=== PATIENT | female | born 1980 | race Hispanic/Latino ===

== ENCOUNTER 2020-02-05 14:15 | Emergency (ER) | payer BC ==
[2020-02-05 15:32] LABS: Urine Blood TRACE (NEG); Urine Glucose NEGATIVE (NEG); Urine Protein NEGATIVE (NEG); Urine pH 5.5 (5.0-7.0)
[2020-02-05 15:53] LABS: Urine Bacteria 20-50 /HPF (<20); Urine Culture Reflex Order NOT NEEDED; Urine RBC <5 /HPF (NONE SEEN)
[2020-02-05 15:57] LABS: Absolute Lymphocytes (CBC) 1.9 K/uL (0.7-4.9); Basophils % 1.1 % (0-1.3); Lymphocytes % 25.7 % (15.3-44.8); MPV 10.5 fL (7.6-11.3); RBC Red Blood Cell Count 3.92 M/uL (3.86-4.86)
[2020-02-05 16:04] LABS: ALT/SGPT 45 U/L (12-78); AST/SGOT 34 U/L (15-37); Albumin 3.4 g/dL (3.4-5.0); Alkaline Phosphatase 56 U/L (45-117); BUN Blood Urea Nitrogen 11 mg/dL (7-18); Bicarbonate 28 mmol/L (21-32); Bilirubin Direct < 0.1 mg/dL (0-0.2); Bilirubin Total 0.3 mg/dL (0.2-1.0); Glucose Level 105 mg/dL (74-106); Lipase 80 U/L (73-393); Potassium 3.9 mmol/L (3.5-5.1); Protein, Total 7.2 g/dL (6.4-8.2); Sodium Level 138 mmol/L (136-145)
[2020-02-05] MEDS ORDERED: NA CHLORIDE 0.9% 1,000 ML ONE (16:09)
--- NOTE | 2020-02-05 16:12 | RAD REPORT ---
EXAM DESCRIPTION: US - Abdomen Exam Limited - 02/05/2020 3:59 pm CLINICAL HISTORY: ABD PAIN COMPARISON: Abdomen Exam Complete dated 09/04/2016 FINDINGS: The gallbladder demonstrates no gallstones. No pericholecystic fluid or gallbladder wall t hickening. The common bile duct is normal measuring 3 mm. The liver demonstrates no findings of intrahepatic biliary dilatation. IMPRESSION: Unremarkable examination.
--- NOTE | 2020-02-05 16:35 | RAD REPORT ---
EXAM DESCRIPTION: RAD - Chest Single View - 02/05/2020 4:28 pm CLINICAL HISTORY: ABDOMINAL DISTENTION Chest pain. COMPARISON: CHEST PA AND LAT 2 VIEW dated 12/12/2011 FINDINGS: Portable technique limits examination quality. The lungs are grossly clear. The heart is normal in size. No displaced fractures. IMPRESSION: No acute intrathoracic process suspected.
--- NOTE | 2020-02-05 16:55 | RAD REPORT ---
EXAM DESCRIPTION: CT - Chest For Pe Angio - 02/05/2020 4:29 pm CLINICAL HISTORY: Chest pain. elevated ddimer COMPARISON: No comparisons TECHNIQUE: CT angiogram of the pulmonary arteries was performed with MIP. All CT scans are performed using dose optimization technique as appropriate and may include automated exposure control or mA/KV adjustment according to patient size. FINDINGS: No evidence of pulmonary thromboembolism. No acute aortic finding demonstrated. The lungs are clear. No significant pericardial or pleural fluid. No concerning bony finding. IMPRESSION: No evidence of pulmonary thromboembolism. No acute lung findings.
--- NOTE | 2020-02-05 17:15 | RAD REPORT ---
EXAM DESCRIPTION: US - Extrem Venous W Compress Nando - 02/05/2020 5:06 pm CLINICAL HISTORY: PAIN Bilateral leg edema and swelling. COMPARISON: No comparisons TECHNIQUE: Real-time sonographic interrogation of the left and right lower extremity deep venous sys tems was performed. FINDINGS: Normal compressibility, flow augmentation, phasic flow and spontaneous flow is identified in both the left and right lower extremity deep venous systems. IMPRESSION: No sonographic evidence of left or right lower extremity deep venous thrombosis.
--- NOTE | 2020-02-05 17:19 | ER ---
Nurse's Notes [facility] Name: Roseline Ram Age: 39 yrs Sex: Female : 1980 Arrival Date: 02/05/2020 Time: 14:20 Bed 27 Private MD: Diagnosis: Other chest pain-wall;Abdominal tenderness;Nausea Presentation: 02/04 14:37 Chief complaint: Patient states: RUQ pain that began 1 week ago, pt report got worse x aa5 2 days ago. Reports nausea/vomiting/diarrhea and reports pain is aggravated by eating. Coronavirus screen: The patient has NOT traveled to a country currently being monitored by the [facility] within the last 14 days. The patient has NOT had contact with any known and/or suspected case of coronavirus. Ebola Screen: Patient negative for fever greater than or equal to 101.5 degrees Fahrenheit, and additional compatible Ebola Virus Disease symptoms. Initial Sepsis Screen: Does the patient meet any 2 criteria? No. Patient's initial sepsis screen is negative. Does the patient have a suspected source of infection? No. Patient's initial sepsis screen is negative. Risk Assessment: Do you want to hurt yourself or someone else? Patient reports no desire to harm self or others. 14:37 Method Of Arrival: Ambulatory aa5 14:37 Acuity: RAVEN 3 aa5 15:14 Onset of symptoms was February 02, 2020. ls4 Triage Assessment: 15:13 General: Appears in no apparent distress. General: Appears in no apparent distress. ls4 uncomfortable, Behavior is calm, cooperative. Pain: Complains of pain in right upper quadrant and back and right mid back Pain currently is 7 out of 10 on a pain scale. GI: see triage. GI: Reports upper abdominal pain. 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 - Social history:: Smoking status: Patient denies any tobacco usage or history of. - Family history:: not pertinent. Screenin:48 Abuse screen: Denies threats or abuse. Denies injuries from another. Nutritional ls4 screening: No deficits noted. Tuberculosis screening: No symptoms or risk factors identified. Fall Risk None identified. Assessment: 14:57 Pain: Pain radiates to right mid back Pain began gradually, 2-3 days ago. ls4 Cardiovascular: Denies chest pain, diaphoresis, fatigue, lightheadedness, palpitations, shortness of breath, syncope. GI: Abdomen is round non-distended, Bowel sounds present X 4 quads. Abd is soft Abdomen is tender to palpation in right upper quadrant Reports nausea, Pain is 7 out of 10 on a pain scale. : No signs and/or symptoms were reported regarding the genitourinary system. 17:00 Also complains of. Reassessment: No changes from previously documented assessment. ls4 Patient and/or family updated on plan of care and expected duration. Pain level reassessed. Patient is alert, oriented x 3, equal unlabored respirations, skin warm/dry/pink. 17:55 Reassessment: No changes from previously documented assessment. Patient and/or family ls4 updated on plan of care and expected duration. Pain level reassessed. Patient is alert, oriented x 3, equal unlabored respirations, skin warm/dry/pink. Vital Signs: 14:37 BP 144 / 94; Pulse 86; Resp 16 S; Temp 98.7(O); Pulse Ox 99% on R/A; Weight 104.33 kg aa5 (R); Height 5 ft. 3 in. (160.02 cm) (R); Pain 7/10; 15:00 BP 136 / 86; Pulse 68; Resp 16; Pulse Ox 100% on R/A; mh5 16:51 BP 119 / 66; Pulse 66; Resp 16; Temp 98.7(O); Pulse Ox 100% on R/A; mh5 17:54 BP 122 / 58; Pulse 66; Resp 16; Temp 98.4; Pulse Ox 99% on R/A; Pain 5/10; ls4 14:37 Body Mass Index 40.74 (104.33 kg, 160.02 cm) aa5 ED Course: 14:20 Patient arrived in ED. fj1 14:39 Triage completed. aa5 14:39 Arm band placed on. aa5 14:43 Benito Gutierrez MD is Attending Physician. [facility] 14:45 Micheline Whitaker, RN is Primary Nurse. ls4 15:12 No provider procedures requiring assistance completed. Initial lab(s) drawn, by ny, ls4 sent to lab. Urine collected: clean catch specimen, cloudy. Inserted saline lock: 14 gauge 20 gauge in right antecubital area, using aseptic technique. Blood collected. Patient maintains SpO2 saturation greater than 95% on room air. 15:14 Patient has correct armband on for positive identification. Bed in low position. Call ls4 light in reach. Side rails up X 1. monitor worker on. Pulse ox on. NIBP on. Diet: Patient is NPO. 15:25 Urine Dipstick--Ancillary (enter results) Sent. ls4 15:26 Urine --Ancillary (enter results) Sent. ls4 15:41 Urine Microscopic Only Sent. vc 15:41 Urine Culture Sent. vc 15:46 Basic Metabolic Panel Sent. ls4 15:46 CBC with Diff Sent. ls4 15:46 Creatinine for Radiology Sent. ls4 15:46 Hepatic Function Sent. ls4 15:46 Lipase Sent. ls4 15:46 D-Dimer Sent. ls4 16:11 US Extremity Venous W Compression Nando Sent. ls4 17:38 IV discontinued, intact, bleeding controlled, No redness/swelling at site. Pressure ls4 dressing applied. Administered Medications: 16:13 Drug: NS 0.9% 1000 ml Route: IV; Rate: 1 bolus; Site: right antecubital; ls4 Outcome: 17:19 Discharge ordered by . [facility] 17:38 Discharged to home ambulatory. ls4 17:38 Condition: stable 17:38 Discharge instructions given to patient, Instructed on discharge instructions, follow up and referral plans. medication usage, Demonstrated understanding of instructions, follow-up care, medications, Prescriptions given X 4. 17:56 Patient left the ED. ls4 Signatures: Benito Gutierrez MD MD cha Calderon, Audri, RN RN 5 Kandi Mena 5 Micheline Whitaker, SELENA RN ls4 Julieth Patiño RN RN vc James, Frank fj1
--- NOTE | 2020-02-05 17:19 | EDPHYS ---
Physician Documentation [facility] Name: Roseline Ram Age: 39 yrs Sex: Female : 1980 Arrival Date: 02/05/2020 Time: 14:20 Bed 27 Private MD: LY Physician Benito Gutierrez HPI: 02/04 15:35 This 39 yrs old Female presents to ER via Ambulatory with complaints of lana Nausea, Abdominal Pain. 15:35 The patient presents to the emergency department with nausea, vomiting, abdominal pain, lana of the right upper quadrant. Onset: The symptoms/episode began/occurred today. Possible causes: unknown. The symptoms are aggravated by food , The symptoms are alleviated by nothing. Associated signs and symptoms: The patient has no apparent associated signs or symptoms. Severity of symptoms: At their worst the symptoms were mild moderate in the emergency department the symptoms are unchanged. The patient has not experienced similar symptoms in the past. 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 - Social history:: Smoking status: Patient denies any tobacco usage or history of. - Family history:: not pertinent. ROS: 15:35 Constitutional: Negative for fever, chills, and weight loss, Eyes: Negative for injury, lana pain, redness, and discharge, ENT: Negative for injury, pain, and discharge, Neck: Negative for injury, pain, and swelling, Cardiovascular: Negative for chest pain, palpitations, and edema, Respiratory: Negative for shortness of breath, cough, wheezing, and pleuritic chest pain, Back: Negative for injury and pain, : Negative for injury, bleeding, discharge, and swelling, MS/Extremity: Negative for injury and deformity, Skin: Negative for injury, rash, and discoloration, Neuro: Negative for headache, weakness, numbness, tingling, and seizure, Psych: Negative for depression, anxiety, suicide ideation, homicidal ideation, and hallucinations, Allergy/Immunology: Negative for hives, rash, and allergies, Endocrine: Negative for neck swelling, polydipsia, polyuria, polyphagia, and marked weight changes, Hematologic/Lymphatic: Negative for swollen nodes, abnormal bleeding, and unusual bruising. 15:35 Abdomen/GI: Positive for abdominal pain, of the right upper quadrant. Exam: 15:35 Constitutional: This is a well developed, well nourished patient who is awake, alert, lana and in no acute distress. Head/Face: Normocephalic, atraumatic. Eyes: Pupils equal round and reactive to light, extra-ocular motions intact. Lids and lashes normal. Conjunctiva and sclera are non-icteric and not injected. Cornea within normal limits. Periorbital areas with no swelling, redness, or edema. ENT: Nares patent. No nasal discharge, no septal abnormalities noted. Tympanic membranes are normal and external auditory canals are clear. Oropharynx with no redness, swelling, or masses, exudates, or evidence of obstruction, uvula midline. Mucous membranes moist. Neck: Trachea midline, no thyromegaly or masses palpated, and no cervical lymphadenopathy. Supple, full range of motion without nuchal rigidity, or vertebral point tenderness. No Meningismus. Chest/axilla: Normal chest wall appearance and motion. Nontender with no deformity. No lesions are appreciated. Cardiovascular: Regular rate and rhythm with a normal S1 and S2. No gallops, murmurs, or rubs. Normal PMI, no JVD. No pulse deficits. Respiratory: Lungs have equal breath sounds bilaterally, clear to auscultation and percussion. No rales, rhonchi or wheezes noted. No increased work of breathing, no retractions or nasal flaring. Back: No spinal tenderness. No costovertebral tenderness. Full range of motion. Skin: Warm, dry with normal turgor. Normal color with no rashes, no lesions, and no evidence of cellulitis. MS/ Extremity: Pulses equal, no cyanosis. Neurovascular intact. Full, normal range of motion. Neuro: Awake and alert, GCS 15, oriented to person, place, time, and situation. Cranial nerves II-XII grossly intact. Motor strength 5/5 in all extremities. Sensory grossly intact. Cerebellar exam normal. Normal gait. Psych: Awake, alert, with orientation to person, place and time. Behavior, mood, and affect are within normal limits. 15:35 Abdomen/GI: Inspection: distension, Bowel sounds: active, in the right upper quadrant, Palpation: mild abdominal tenderness, in the right upper quadrant, Liver: no appreciated palpable abnormalities, Hernia: not appreciated. Vital Signs: 14:37 BP 144 / 94; Pulse 86; Resp 16 S; Temp 98.7(O); Pulse Ox 99% on R/A; Weight 104.33 kg aa5 (R); Height 5 ft. 3 in. (160.02 cm) (R); Pain 7/10; 15:00 BP 136 / 86; Pulse 68; Resp 16; Pulse Ox 100% on R/A; mh5 16:51 BP 119 / 66; Pulse 66; Resp 16; Temp 98.7(O); Pulse Ox 100% on R/A; mh5 17:54 BP 122 / 58; Pulse 66; Resp 16; Temp 98.4; Pulse Ox 99% on R/A; Pain 5/10; ls4 14:37 Body Mass Index 40.74 (104.33 kg, 160.02 cm) aa5 MDM: 14:44 Patient medically screened. [facility] 15:39 Data reviewed: vital signs, nurses notes, lab test result(s), EKG, radiologic studies, [facility] plain films, ultrasound. 02/04 14:59 Order name: Urine Dipstick--Ancillary (enter results) 02/04 14:59 Order name: Urine --Ancillary (enter results) 02/04 15:13 Order name: Urine Microscopic Only ls4 02/04 15:29 Order name: Basic Metabolic Panel [facility] 02/04 15:29 Order name: CBC with Diff [facility] 02/04 15:29 Order name: Creatinine for Radiology [facility] 02/04 15:29 Order name: Hepatic Function [facility] 02/04 15:29 Order name: Lipase [facility] 02/04 15:29 Order name: D-Dimer [facility] 02/04 15:33 Order name: Urine --Ancillary; Complete Time: 15:35 EDMS 02/04 15:33 Order name: Urine Dipstick-Ancillary; Complete Time: 15:35 EDIA 02/04 15:35 Order name: Urine Culture [facility] 02/04 15:54 Order name: Urine Microscopic Only; Complete Time: 15:58 EDIA 02/04 16:01 Order name: Creatinine (Radiology Only); Complete Time: 16:06 EDIA 02/04 14:48 Order name: Urine Test (obtain specimen); Complete Time: 15:25 ls4 02/04 15:29 Order name: Chest Single View XRAY [facility] 02/04 15:29 Order name: US Abdomen Limited [facility] 02/04 16:05 Order name: Basic Metabolic Panel; Complete Time: 16:06 EDIA 02/04 16:05 Order name: Liver (Hepatic) Function; Complete Time: 16:06 EDIA 02/04 16:05 Order name: Lipase; Complete Time: 16:06 EDMS 02/04 16:05 Order name: D-Dimer; Complete Time: 16:06 EDIA 02/04 16:05 Order name: CT Chest For PE Angio iw 02/04 16:06 Order name: US Extremity Venous W Compression Nando [facility] 02/04 16:06 Order name: CBC with Automated Diff; Complete Time: 16:07 EDIA 02/04 16:17 Order name: US; Complete Time: 16:47 EDIA 02/04 16:44 Order name: RAD; Complete Time: 16:47 EDIA 02/04 17:01 Order name: CT; Complete Time: 17:14 EDIA 02/04 17:19 Order name: US; Complete Time: 17:20 EDIA 02/04 15:26 Order name: Urine Dipstick-Ancillary (obtain specimen); Complete Time: 15:26 [facility] 02/04 15:29 Order name: IV Saline Lock; Complete Time: 15:41 [facility] 02/04 15:29 Order name: Labs collected and sent; Complete Time: 15:41 [facility] Administered Medications: 16:13 Drug: NS 0.9% 1000 ml Route: IV; Rate: 1 bolus; Site: right antecubital; ls4 Disposition: 02/05/20 17:19 Discharged to Home. Impression: Other chest pain - wall, Abdominal tenderness, Nausea. - Condition is Stable. - Discharge Instructions: Abdominal Pain, Adult, Nonspecific Chest Pain, Abdominal Pain, Adult, [id number], Nonspecific Chest Pain, [id number]. - Prescriptions for Ibuprofen 600 mg Oral Tablet - take 1 tablet by ORAL route every 8 hours As needed take with food; 21 tablet. Pepcid 20 mg Oral Tablet - take 1 tablet by ORAL route every 12 hours for 10 days; 20 tablet. Zofran 4 mg Oral Tablet - take 1 tablet by ORAL route every 12 hours As needed; 20 tablet. Cyclobenzaprine 5 mg Oral Tablet - take 1 tablet by ORAL route 3 times per day As needed; 15 tablet. - Medication Reconciliation Form, Thank You Letter, Antibiotic Education, Prescription Opioid Use form. - Follow up: Private Physician; When: 2 - 3 days; Reason: Recheck today's complaints, Continuance of care, Re-evaluation by your physician. - Problem is new. - Symptoms have improved. Signatures: Dispatcher [employer] EDMS Benito Gutierrez MD MD cha Calderon, Audri, RN RN aa5 Micheline Whitaker RN RN ls4 Corrections: (The following items were deleted from the chart) 15:25 14:48 Urine Dipstick-Ancillary ordered. ls4 ls4 17:21 17:19 02/05/2020 17:19 Discharged to Home. Impression: Other chest pain - wall; lana Abdominal tenderness. Condition is Stable. Forms are Medication Reconciliation Form, Thank You Letter, Antibiotic Education, Prescription Opioid Use. Follow up: Private Physician; When: 2 - 3 days; Reason: Recheck today's complaints, Continuance of care, Re-evaluation by your physician. Problem is new. Symptoms have improved. lana 17:56 17:21 02/05/2020 17:19 Discharged to Home. Impression: Other chest pain - wall; ls4 Abdominal tenderness; Nausea. Condition is Stable. Discharge Instructions: Abdominal Pain, Adult, Nonspecific Chest Pain, Abdominal Pain, Adult, [id number], Nonspecific Chest Pain, [id number]. Prescriptions for Ibuprofen 600 mg Oral Tablet - take 1 tablet by ORAL route every 8 hours As needed take with food; 21 tablet, Pepcid 20 mg Oral Tablet - take 1 tablet by ORAL route every 12 hours for 10 days; 20 tablet, Zofran 4 mg Oral Tablet - take 1 tablet by ORAL route every 12 hours As needed; 20 tablet, Cyclobenzaprine 5 mg Oral Tablet - take 1 tablet by ORAL route 3 times per day As needed; 15 tablet. and Forms are Medication Reconciliation Form, Thank You Letter, Antibiotic Education, Prescription Opioid Use. Follow up: Private Physician; When: 2 - 3 days; Reason: Recheck today's complaints, Continuance of care, Re-evaluation by your physician. Problem is new. Symptoms have improved. lana
[2020-02-05 18:40] VITALS: BP 122/58; TEMP 98.4; O2SAT 99
== END 2020-02-05 17:56 | disposition home or self-care (01) ==
LOC: ER 14:15
DX: R07.89 Other chest pain (principal); R10.819 Abdominal tenderness, unspecified site; Z88.1 Allergy status to other antibiotic agents; Z88.5 Allergy status to narcotic agent; Z88.8 Allergy status to other drugs, medicaments and biological substances
CPT/HCPCS: 87088; 85025; 87086; 80048; 36415; 81025; 85379; 80076; 83690; 71275; 71045; 93970; 76705; 99285; Q9967; J7030; 81003; 81015

== ENCOUNTER 2022-05-09 05:34 | Emergency (ER) | payer BC, OTHER ==
--- OUTSIDE RECORDS SUMMARY | 2022-05-09 05:37 | XMS REPORT | Continuity of Care Document ---
:1980 Author Organization [facility] t Address [address] [place] [address] [address] [place] [address] Care Team Providers Name Role Phone Valentín SILVERMAN Attending Clinician Unavailable Nurse, Women's Health Attending Clinician Unavailable Valentín Silverman MD Attending Clinician Doctor Unassigned, Name Attending Clinician Unavailable Omero Zaidi DO Attending Clinician Payers Payer Name Policy Type Policy Number Effective Date Expiration Date S marysol [employer] CHOICE POS [id number] 2020 00:00:00 [place] [employer] [place] - [id number] 2018 00:00:00 OUT OF STATE Problems Condition Condition Condition Status Onset Resolution Last Treating Co mments Source Name Details Category Date Date Treatment Clinician Date Morbid Morbid Disease Active Univers obesity obesity 6-10 [place] with [place] index 00 Me dical of of Branch 40.0-49.9 40.0-49.9 Cervical Cervical Disease Active Unive rs high risk high risk 5-15 ity of human human 00:00: [place] papillomav papillomav 00 Me dical irus (HPV) irus (HPV) Br anch DNA test DNA test positive positive Obesity Obesity Disease Active Univers (BMI (BMI 5-03 ity of 30-39.9) 30-39.9) 00:00: [place] 00 Medical Branch Menorrhagi Menorrhagi Disease Active Overview : Univers a with a with 5-03 04/03/19 - ity of regular regular 00:00: Tranexami [place] cycle cycle 00 c Acid Medical started. Branch Dysmenorrh Dysmenorrh Disease Active Overview : Univers ea ea 5-03 3/19 - ity of 00:00: Tranexami [place] 00 c Acid Medical started. Branch Acquired Acquired Disease Active Unive rs hypothyroi hypothyroi 04-03 it y of dism dism 00:00: [place] 00 Medical Branch Chlamydia Chlamydia Disease Active Overview: Univers trachomati trachomati 02-1702/12/19 - ity of s s 00:00: s/p [place] infection infection 00 Azithromy M edical of lower of lower ayse Branch genitourin genitourin brigida sites brigida sites Acute Acute Disease Active Overview: Univer s pelvic pelvic 02-1702/12/19 - ity of inflammato inflammato 00:00[place] ry disease ry disease 00 Rocephin, Medical (PID) (PID) Azithromy Branch ayse and Doxycylin e Trichomona Trichomona Disease Active Overview : Univers s s 02-1702/12/19 - ity of vaginitis vaginitis 00:00[place] 00 Flagyl [facility] History of History of Disease Active Overview : Univers abnormal abnormal 02-1704/04/19 - ity of cervical cervical 00:00: pap smear [place] as Papanicola Papanicola 00 normal. 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 Allergies, Adverse Reactions, Alerts Allergy Allergy Status Severity Reaction(s) Onset Inactive Treating Comm ents Source Name Type Date Date Clinician CIPROFLO DRUG Active Other-Cmnt Univ ers XACIN INGREDI 04-26 ity of 00:00: [place] 00 Medical Branch CARISOPR DRUG Active Rash Univers ODOL INGREDI 04-26 ity of 00:00: [place] 00 Medical Branch TRAMADOL DRUG Active Rash Univers HCL INGREDI 04-26 ity of 00:00: [place] 00 Medical Branch Ciproflo Propensi Active Other - See Joint U nivers xacin ty to comments 04-26 pain ity of adverse 00:00: [place] reaction 00 Medical s Branch Carisopr Propensi Active Rash Univer s odol ty to 04-26 ity of adverse 00:00: [place] reaction 00 Medical s Branch Tramadol Propensi Active Rash 2016-0 Univer s Hcl ty to 5-26 ity of adverse 00:00: [place] reaction 00 Medical s Branch Social History Social Habit Start Date Stop Date Quantity Comments Source Exposure to Not sure University SARS-CoV-2 [facility] (event) Branch Tobacco use and 2021-03-14 2021-03-14 Never used Universit y of exposure 00:00:00 00:00:00 [facility] Alcohol intake 2021-03-14 2021-03-14 Current University of 00:00:00 00:00:00 non-drinker of [facility] alcohol Branch (finding) Sex Ass[birth year] At [birth year] Universit y of 00:00:00 00:00:00 [facility] Smoking Status Start Date Stop Date Source Never smoker [facility] Medications Ordered Filled Start Stop Current Ordering Indication Dosage Frequency Signature Comments Components Source Medication Medication Date Date Medication? Clinician (SIG) Name Name cefTRIAXone 2020- No [id number] 250mg Univers (ROCEPHIN) 02-14 ity of injection 17:45: 16:36 [place] 250 mg 00 :00 [facility] cefTRIAXone 2020- No [id number] 250mg 250 mg, Univers (ROCEPHIN) 02-14 Intramuscu it y of injection 17:45: 16:36 [place]CE, [place] 250 mg 00 :00 1 dose, [facility] 02/14/21 at 1245, Routine
Reason for Anti-Infec tive: Documented Infection< br>Documen chris Infection Site: Blood
D uration of Therapy: Other (see Comments) cefTRIAXone 2020- No [id number] 250mg Univers (ROCEPHIN) 02-14 ity of injection 17:45: 16:36 [place] 250 mg 00 :00 [facility] cefTRIAXone 2020- No [id number] 250mg 250 mg, Univers (ROCEPHIN) 02-14 Intramuscu it y of injection 17:45: 16:36 [place], ONCE, [place] 250 mg 00 :00 1 dose, [facility] 02/14/21 at 1245, Routine
Reason for Anti-Infec tive: Documented Infection< br>Documen chris Infection Site: Blood
D uration of Therapy: Other (see Comments) vitamin 0 Yes 1000ug Take 1,000 Un abdoul B-12 3-16 mcg by ity of (VITAMIN 16:04: mouth [place] B-12) 1,000 11 daily. Medica l mcg tablet Branch vitamin Yes 1000ug Take 1,000 Un abdoul B-12 3-16 mcg by ity of (VITAMIN 16:04: mouth [place] B-12) 1,000 11 daily. Medica l mcg tablet Branch vitamin Yes 1000ug Take 1,000 Un abdoul B-12 3-16 mcg by ity of (VITAMIN 16:04: mouth [place] B-12) 1,000 11 daily. Medica l mcg tablet Branch vitamin Yes 1000ug Take 1,000 Un abdoul B-12 3-16 mcg by ity of (VITAMIN 16:04: mouth [place] B-12) 1,000 11 daily. Medica l mcg tablet Branch vitamin Yes 1000ug Take 1,000 Un abdoul B-12 3-16 mcg by ity of (VITAMIN 16:04: mouth [place] B-12) 1,000 11 daily. Medica l mcg tablet Branch vitamin Yes 1000ug Take 1,000 Un abdoul B-12 3-16 mcg by ity of (VITAMIN 16:04: mouth [place] B-12) 1,000 11 daily. Medica l mcg tablet Branch vitamin Yes 1000ug Take 1,000 Un abdoul B-12 3-16 mcg by ity of (VITAMIN 16:04: mouth [place] B-12) 1,000 11 daily. Medica l mcg tablet Branch vitamin Yes 1000ug Take 1,000 Un abdoul B-12 3-16 mcg by ity of (VITAMIN 16:04: mouth [place] B-12) 1,000 11 daily. Medica l mcg tablet Branch doxycycline Yes [id number] 100mg Take 1 Univers hyclate 100 3-16 tablet by ity of mg tablet 00:00: mouth 2 [place] 00 (two) Medical times Branch daily. metroNIDAZO Yes [id number] 500mg Take 1 Univers LE 500 mg 3-16 tablet by ity o f tablet 00:00: mouth [place] 00 every 12 Medical (twelve) Branch hours. doxycycline 2020-0 Yes [id number] 100mg Take 1 Univers hyclate 100 3-16 tablet by ity of mg tablet 00:00: mouth 2 00 (two) Medical times Branch daily. metroNIDAZO 2020-0 Yes [id number] 500mg Take 1 Univers LE 500 mg 3-16 tablet by ity o f tablet 00:00: mouth [place] 00 every 12 Medical (twelve) Branch hours. doxycycline 2020-0 Yes [id number] 100mg Take 1 Univers hyclate 100 3-16 tablet by ity of mg tablet 00:00: mouth 2 [place] 00 (two) Medical times Branch daily. metroNIDAZO 2020-0 Yes [id number] 500mg Take 1 Univers LE 500 mg 3-16 tablet by ity o f tablet 00:00: mouth [place] 00 every 12 Medical (twelve) Branch hours. doxycycline 2020-0 Yes [id number] 100mg Take 1 Univers hyclate 100 3-16 tablet by ity of mg tablet 00:00: mouth 2 00 (two) Medical times Branch daily. metroNIDAZO 2020-0 Yes [id number] 500mg Take 1 Univers LE 500 mg 3-16 tablet by ity o f tablet 00:00: mouth [place] 00 every 12 Medical (twelve) Branch hours. doxycycline 2020-0 Yes [id number] 100mg Take 1 Univers hyclate 100 3-16 tablet by ity of mg tablet 00:00: mouth 2 00 (two) Medical times Branch daily. metroNIDAZO 2020-0 Yes [id number] 500mg Take 1 Univers LE 500 mg 3-16 tablet by ity o f tablet 00:00: mouth [place] 00 every 12 Medical (twelve) Branch hours. doxycycline 2020-0 Yes [id number] 100mg Take 1 Univers hyclate 100 3-16 tablet by ity of mg tablet 00:00: mouth 2 [place] 00 (two) Medical times Branch daily. metroNIDAZO 2021-0 Yes [id number] 500mg Take 1 Univers LE 500 mg 3-16 tablet by ity o f tablet 00:00: mouth [place] 00 every 12 Medical (twelve) Branch hours. doxycycline 1-0 Yes [id number] 100mg Take 1 Univers hyclate 100 3-16 tablet by ity of mg tablet 00:00: mouth 2 [place] 00 (two) Medical times Branch daily. metroNIDAZO 2021-0 Yes [id number] 500mg Take 1 Univers LE 500 mg 3-16 tablet by ity o f tablet 00:00: mouth [place] 00 every 12 Medical (twelve) Branch hours. doxycycline 2021-0 Yes [id number] 100mg Take 1 Univers hyclate 100 3-16 tablet by ity of mg tablet 00:00: mouth 2 00 (two) Medical times Branch daily. metroNIDAZO 2021-0 Yes [id number] 500mg Take 1 Univers LE 500 mg 3-16 tablet by ity o f tablet 00:00: [place] 00 every 12 Medical (twelve) Branch hours. tranexamic 2020-0 Yes [id number] 1300mg Take 2 Univers acid 650 mg 6-17 tablets by it y of tablet 00:00: mouth 3 (three) Medical times Branch daily. tranexamic 2020-0 Yes [id number] 1300mg Take 2 Univers acid 650 mg 6-17 tablets by it y of tablet 00:00: [place] (three) Medical times Branch daily. tranexamic 2020-0 Yes [id number] 1300mg Take 2 Univers acid 650 mg 6-17 tablets by it y of tablet 00:00: [place] (three) Medical times Branch daily. tranexamic 2020-0 Yes [id number] 1300mg Take 2 Univers acid 650 mg 6-17 tablets by it y of tablet 00:00: [place] (three) Medical times Branch daily. tranexamic 2020-0 Yes [id number] 1300mg Take 2 Univers acid 650 mg 6-17 tablets by it y of tablet 00:00: [place] (three) Medical times Branch daily. tranexamic 2020-0 Yes [id number] 1300mg Take 2 Univers acid 650 mg 6-17 tablets by it y of tablet 00:00: mouth 3 (three) Medical times Branch daily. tranexamic 2020-0 Yes [id number] 1300mg Take 2 Univers acid 650 mg 6-17 tablets by it y of tablet 00:00: mouth 3 (three) Medical times Branch daily. tranexamic 2020-0 Yes [id number] 1300mg Take 2 Univers acid 650 mg 6-17 tablets by it y of tablet 00:00: mouth 3 (three) Medical times Branch daily. tranexamic 2020-0 Yes [id number] 1300mg Take 2 Univers acid 650 mg 6-17 tablets by it y of tablet 00:00: mouth 3 [place] (three) Medical times Branch daily. tranexamic 2020-0 Yes [id number] 1300mg Take 2 Univers acid 650 mg 6-17 tablets by it y of tablet 00:00: mouth 3 [place] (three) Medical times Branch daily. tranexamic 2020-0 Yes [id number] 1300mg Take 2 Univers acid 650 mg 6-17 tablets by it y of tablet 00:00: mouth 3 [place] (three) Medical times Branch daily. tranexamic 2020-0 Yes [id number] 1300mg Take 2 Univers acid 650 mg 6-17 tablets by it y of tablet 00:00: mouth 3 [place] (three) Medical times Branch daily. tranexamic 2020-0 Yes [id number] 1300mg Take 2 Univers acid 650 mg 6-17 tablets by it y of tablet 00:00: mouth [place] ([facility]) Medical times Branch daily. tranexamic 2020-0 Yes [id number] 1300mg Take 2 Univers acid 650 mg 6-17 tablets by it y of tablet 00:00: mouth [place] (three) Medical times Branch daily. tranexamic 2020-0 Yes [id number] 1300mg Take 2 Univers acid 650 mg 6-17 tablets by it y of tablet 00:00: mouth [place] (three) Medical times Branch daily. tranexamic 2020-0 Yes [id number] 1300mg Take 2 Univers acid 650 mg 6-17 tablets by it y of tablet 00:00: mouth [place] ([facility]) Medical times Branch daily. tranexamic 2020-0 Yes [id number] 1300mg Take 2 Univers acid 650 mg 6-17 tablets by it y of tablet 00:00: mouth [place] (three) Medical times Branch daily. tranexamic 2020-0 Yes [id number] 1300mg Take 2 Univers acid 650 mg 6-17 tablets by it y of tablet 00:00: mouth 3 [place] (three) Medical times Branch daily. cefTRIAXone 2020-0 2020- No [id number] 250mg Univers (ROCEPHIN) 6-10 06-10 ity of injection 19:46: 19:02 [place] 250 mg 00 :00 Medical Branch cefTRIAXone 2020-0 2020- No [id number] 250mg 250 mg, Univers (ROCEPHIN) 6-10 06-10 Intramuscu it y of injection 19:46: 19:02 [place], ONCE, [place] 250 mg 00 :00 1 dose, Medical [facility] Branch 05/11/20 at 1500, Routine
Reason for Anti-Infec tive: Empiric Therapy for Suspected Infection< br>Empiric Therapy Site: Pelvic
Duration of therapy: 7 days cefTRIAXone 2020-0 2020- No [id number] 250mg Univers (ROCEPHIN) 05-11 ity of injection 19:46: 19:02 [place] 250 mg 00 :00 Medical Branch cefTRIAXone 2020-0 2020- No [id number] 250mg 250 mg, Univers (ROCEPHIN) 05-11 Intramuscu it y of injection 19:46: 19:02 [place], ONCE, [place] 250 mg 00 :00 1 dose, Medical [facility] Branch 05/11/20 at 1500, Routine
Reason for Anti-Infec tive: Empiric Therapy for Suspected Infection< br>Empiric Therapy Site: Pelvic
Duration of therapy: 7 days vitamin 2020-0 Yes 1000ug Take 1,000 Un abdoul B-12 6-10 mcg by ity of (VITAMIN 18:16: mouth [place] B-12) 1,000 35 daily. Medica l mcg tablet Branch vitamin 2020-0 Yes 1000ug Take 1,000 Un abdoul B-12 6-10 mcg by ity of (VITAMIN 18:16: mouth [place] B-12) 1,000 35 daily. Medica l mcg tablet Branch vitamin 2020-0 Yes 1000ug Take 1,000 Un abdoul B-12 6-10 mcg by ity of (VITAMIN 18:16: mouth [place] B-12) 1,000 35 daily. Medica l mcg tablet Branch vitamin 2020-0 Yes 1000ug Take 1,000 Un abdoul B-12 6-10 mcg by ity of (VITAMIN 18:16: mouth [place] B-12) 1,000 35 daily. Medica l mcg tablet Branch vitamin 2020-0 Yes 1000ug Take 1,000 Un abdoul B-12 6-10 mcg by ity of (VITAMIN 18:16: mouth [place] B-12) 1,000 35 daily. Medica l mcg tablet Branch vitamin 2020-0 Yes 1000ug Take 1,000 Un abdoul B-12 6-10 mcg by ity of (VITAMIN 18:16: mouth [place] B-12) 1,000 35 daily. Medica l mcg tablet Branch vitamin 2020-0 Yes 1000ug Take 1,000 Un abdoul B-12 6-10 mcg by ity of (VITAMIN 18:16: mouth [place] B-12) 1,000 35 daily. Medica l mcg tablet Branch vitamin 2020-0 Yes 1000ug Take 1,000 Un abdoul B-12 6-10 mcg by ity of (VITAMIN 18:16: mouth [place] B-12) 1,000 35 daily. Medica l mcg tablet Branch vitamin 2020-0 Yes 1000ug Take 1,000 Un abdoul B-12 6-10 mcg by ity of (VITAMIN 18:16: mouth [place] B-12) 1,000 35 daily. Medica l mcg tablet Branch vitamin 2020-0 Yes 1000ug Take 1,000 Un abdoul B-12 6-10 mcg by ity of (VITAMIN 18:16: mouth [place] B-12) 1,000 35 daily. Medica l mcg tablet Branch vitamin 2020-0 Yes 1000ug Take 1,000 Un abdoul B-12 6-10 mcg by ity of (VITAMIN 18:16: mouth [place] B-12) 1,000 35 daily. Medica l mcg tablet Branch vitamin 2020-0 Yes 1000ug Take 1,000 Un abdoul B-12 6-10 mcg by ity of (VITAMIN 18:16: mouth [place] B-12) 1,000 35 daily. Medica l mcg tablet Branch doxycycline 2020-0 Yes [id number] 100mg Take 1 Univers hyclate 100 6-10 tablet by ity of mg tablet 00:00: mouth 2 [place] 00 (two) Medical times Branch daily. metroNIDAZO 2020-0 Yes [id number] 500mg Take 1 Univers LE 500 mg 6-10 tablet by ity o f tablet 00:00: mouth [place] 00 every 12 Medical (twelve) Branch hours. doxycycline 2020-0 Yes [id number] 100mg Take 1 Univers hyclate 100 6-10 tablet by ity of mg tablet 00:00: mouth 2 [place] 00 (two) Medical times Branch daily. metroNIDAZO 2020-0 Yes [id number] 500mg Take 1 Univers LE 500 mg 6-10 tablet by ity o f tablet 00:00: mouth [place] 00 every 12 Medical (twelve) Branch hours. doxycycline 2020-0 Yes [id number] 100mg Take 1 Univers hyclate 100 6-10 tablet by ity of mg tablet 00:00: mouth 2 [place] 00 (two) Medical times Branch daily. metroNIDAZO 2020-0 Yes [id number] 500mg Take 1 Univers LE 500 mg 6-10 tablet by ity o f tablet 00:00: mouth [place] 00 every 12 Medical (twelve) Branch hours. doxycycline 2020-0 2020- No [id number] 100mg Take 1 Univers hyclate 100 6-10 08-10 tablet by it y of mg tablet 00:00: 00:00 mouth 2 [place] :[place] (two) Medical times Branch daily. metroNIDAZO 2020-0 2020- No [id number] 500mg Take 1 Univers LE 500 mg 6-10 08-10 tablet by ity of tablet 00:00: 00:00 mouth [place] 00 :00 every 12 Medical (twelve) Branch hours. doxycycline 2020-0 2020- No [id number] 100mg Take 1 Univers hyclate 100 6-10 08-10 tablet by it y of mg tablet 00:00: 00:00 mouth 2 [place] :[place] (two) Medical times Branch daily. metroNIDAZO 2020-0 2020- No [id number] 500mg Take 1 Univers LE 500 mg 6-10 08-10 tablet by ity of tablet 00:00: 00:00 mouth [place] 00 :00 every 12 Medical (twelve) Branch hours. gabapentin 2020-0 Yes Univers 300 mg 5-27 ity of capsule 00:00: [place] 00 Medical Branch gabapentin 2020-0 Yes Univers 300 mg 5-27 ity of capsule 00:00: [place] 00 Medical Branch gabapentin 2020-0 Yes Univers 300 mg 5-27 ity of capsule 00:00: [place] 00 Medical Branch gabapentin 2020-0 Yes Univers 300 mg 5-27 ity of capsule 00:00: [place] 00 Medical Branch gabapentin 2020-0 Yes Univers 300 mg 5-27 ity of capsule 00:00: [place] 00 Medical Branch gabapentin 2020-0 Yes Univers 300 mg 5-27 ity of capsule 00:00: [place] 00 Medical Branch gabapentin 2020-0 Yes Univers 300 mg 5-27 ity of capsule 00:00: [place] 00 Medical Branch gabapentin 2020-0 Yes Univers 300 mg 5-27 ity of capsule 00:00: [place] 00 Medical Branch gabapentin 2020-0 Yes Univers 300 mg 5-27 ity of capsule 00:00: [place] 00 Medical Branch gabapentin 2020-0 Yes Univers 300 mg 5-27 ity of capsule 00:00: [place] 00 Medical Branch gabapentin 2020-0 Yes Univers 300 mg 5-27 ity of capsule 00:00: [place] 00 Medical Branch gabapentin 2020-0 Yes Univers 300 mg 5-27 ity of capsule 00:00: [place] 00 Medical Branch gabapentin 2020-0 Yes Univers 300 mg 5-27 ity of capsule 00:00: [place] 00 Medical Branch gabapentin 2020-0 Yes Univers 300 mg 5-27 ity of capsule 00:00: [place] 00 Medical Branch gabapentin 2020-0 Yes Univers 300 mg 5-27 ity of capsule 00:00: [place] 00 Medical Branch gabapentin 2020-0 Yes Univers 300 mg 5-27 ity of capsule 00:00: [place] 00 Medical Branch gabapentin 2020-0 Yes Univers 300 mg 5-27 ity of capsule 00:00: [place] 00 Medical Branch gabapentin 2020-0 Yes Univers 300 mg 5-27 ity of capsule 00:00: [place] 00 Medical Branch gabapentin 2020-0 Yes Univers 300 mg 5-27 ity of capsule 00:00: [place] 00 Medical Branch gabapentin 2020-0 Yes Univers 300 mg 5-27 ity of capsule 00:00: [place] 00 Medical Branch levothyroxi 2019-0 Yes 75ug Take 1 Univ ers ne 75 mcg 5-03 tablet by ity o f tablet 00:00: mouth [place] 00 every Medical morning. Branch levothyroxi 2019-0 Yes 75ug Take 1 Univ ers ne 75 mcg 5-03 tablet by ity o f tablet 00:00: mouth [place] 00 every Medical morning. Branch levothyroxi 2019-0 Yes 75ug Take 1 Univ ers ne 75 mcg 5-03 tablet by ity o f tablet 00:00: mouth [place] 00 every Medical morning. Branch levothyroxi 2019-0 Yes 75ug Take 1 Univ ers ne 75 mcg 5-03 tablet by ity o f tablet 00:00: mouth [place] 00 every Medical morning. Branch levothyroxi 2019-0 Yes 75ug Take 1 Univ ers ne 75 mcg 5-03 tablet by ity o f tablet 00:00: mouth [place] 00 every Medical morning. Branch levothyroxi 2019-0 Yes 75ug Take 1 Univ ers ne 75 mcg 5-03 tablet by ity o f tablet 00:00: mouth [place] 00 every Medical morning. Branch levothyroxi 2019-0 Yes 75ug Take 1 Univ ers ne 75 mcg 5-03 tablet by ity o f tablet 00:00: mouth [place] 00 every Medical morning. Branch levothyroxi 2019-0 Yes 75ug Take 1 Univ ers ne 75 mcg 5-03 tablet by ity o f tablet 00:00: mouth [place] 00 every Medical morning. Branch levothyroxi 2019-0 Yes 75ug Take 1 Univ ers ne 75 mcg 5-03 tablet by ity o f tablet 00:00: mouth [place] 00 every Medical morning. Branch levothyroxi 2019-0 Yes 75ug Take 1 Univ ers ne 75 mcg 5-03 tablet by ity o f tablet 00:00: mouth [place] 00 every Medical morning. Branch levothyroxi 2019-0 Yes 75ug Take 1 Univ ers ne 75 mcg 5-03 tablet by ity o f tablet 00:00: mouth [place] 00 every Medical morning. Branch levothyroxi 2019-0 Yes 75ug Take 1 Univ ers ne 75 mcg 5-03 tablet by ity o f tablet 00:00: mouth [place] 00 every Medical morning. Branch levothyroxi 2019-0 Yes 75ug Take 1 Univ ers ne 75 mcg 5-03 tablet by ity o f tablet 00:00: mouth [place] 00 every Medical morning. Branch levothyroxi 2019-0 Yes 75ug Take 1 Univ ers ne 75 mcg 5-03 tablet by ity o f tablet 00:00: mouth [place] 00 every Medical morning. Branch levothyroxi 2019-0 Yes 75ug Take 1 Univ ers ne 75 mcg 5-03 tablet by ity o f tablet 00:00: mouth [place] 00 every Medical morning. Branch levothyroxi 2019-0 Yes 75ug Take 1 Univ ers ne 75 mcg 5-03 tablet by ity o f tablet 00:00: mouth [place] 00 every Medical morning. Branch levothyroxi 2019-0 Yes 75ug Take 1 Univ ers ne 75 mcg 5-03 tablet by ity o f tablet 00:00: mouth [place] 00 every Medical morning. Branch Tranexamic 2019-0 Yes [id number] 1300mg Take 2 Univers Acid 650 mg 5-03 tablets by it y of tablet 00:00: mouth 3 [place] 00 (three) Medical times Branch daily. levothyroxi 2019-0 Yes 75ug Take 1 Univ ers ne 75 mcg 5-03 tablet by ity o f tablet 00:00: mouth [place] 00 every Medical morning. Branch Tranexamic 2019-0 Yes [id number] 1300mg Take 2 Univers Acid 650 mg 5-03 tablets by it y of tablet 00:00: mouth 3 [place] 00 (three) Medical times Branch daily. levothyroxi 2019-0 Yes 75ug Take 1 Univ ers ne 75 mcg 5-03 tablet by ity o f tablet 00:00: mouth [place] 00 every Medical morning. Branch Tranexamic Yes [id number] 1300mg Take 2 Univers Acid 650 mg 5-03 tablets by it y of tablet 00:00: mouth 3 [place] 00 (three) Medical times Branch daily. levothyroxi 2019-0 Yes 75ug Take 1 Univ ers ne 75 mcg 5-03 tablet by ity o f tablet 00:00: mouth [place] 00 every Medical morning. Branch levothyroxi 0 Yes 75ug Take 1 Univ ers ne 75 mcg 5-03 tablet by ity o f tablet 00:00: mouth [place] 00 every Medical morning. Branch Tranexamic 2020- No [id number] 1300mg Take 2 Univers Acid 650 mg 5-03 06-17 tablets by i ty of tablet 00:00: 00:00 mouth 3 [place] 00 :00 (three) Medical times Branch daily. phentermine 2019-0 Yes TK 1 T PO U nivers 37.5 mg 4-13 QAM ity of tablet 00:00: [place] 00 [facility] phentermine 2018-0 Yes TK 1 T PO U nivers 37.5 mg 4-13 QAM ity of tablet 00:00: [place] [facility] Branch phentermine 2019-0 Yes TK 1 T PO U nivers 37.5 mg 4-13 QAM ity of tablet 00:00: [place] [facility] phentermine 2019-0 Yes TK 1 T PO U nivers 37.5 mg 4-13 QAM ity of tablet 00:00: [place] 00 Medical [place] phentermine 2019-0 Yes TK 1 T PO U nivers 37.5 mg 4-13 QAM ity of tablet 00:00: [place] 00 [facility] phentermine 2019-0 Yes TK 1 T PO U nivers 37.5 mg 4-13 QAM ity of tablet 00:00: [place] 00 [facility] phentermine 2018-0 Yes TK 1 T PO U nivers 37.5 mg 4-13 QAM ity of tablet 00:00: [place] 00 Medical Branch phentermine 2019-0 Yes TK 1 T PO U nivers 37.5 mg 4-13 QAM ity of tablet 00:00: [place] 00 Medical Branch phentermine 2019-0 Yes TK 1 T PO U nivers 37.5 mg 4-13 QAM ity of tablet 00:00: [place] 00 Medical Branch phentermine 2019-0 Yes TK 1 T PO U nivers 37.5 mg 4-13 QAM ity of tablet 00:00: [place] 00 Medical Branch phentermine 2019-0 Yes TK 1 T PO U nivers 37.5 mg 4-13 QAM ity of tablet 00:00: [place] 00 Medical Branch phentermine 2019-0 Yes TK 1 T PO U nivers 37.5 mg 4-13 QAM ity of tablet 00:00: [place] 00 Medical Branch phentermine 2019-0 Yes TK 1 T PO U nivers 37.5 mg 4-13 QAM ity of tablet 00:00: [place] 00 Medical Branch phentermine 2019-0 2021- No TK 1 T PO Univers 37.5 mg 4-13 03-16 QAM ity of tablet 00:00: 00:00 [place] 00 :00 Medical Branch phentermine 2019-0 2021- No TK 1 T PO Univers 37.5 mg 4-13 03-16 QAM ity of tablet 00:00: 00:00 [place] 00 :00 [facility] Vital Signs Vital Name Observation Time Observation Value Comments Source Systolic blood 2021-03-14 19:18:00 123 mm[Hg] Univer sity of pressure [facility] Diastolic blood 2021-03-14 19:18:00 85 mm[Hg] Unive rsity of pressure [facility] Heart rate 2021-03-14 19:18:00 64 /min [facility] Body temperature 2021-03-14 19:18:00 36.61 Aleja [facility] Res[facility] 2021-03-14 19:18:00 18 /min [facility] Body height 2021-03-14 19:18:00 160 cm [facility] Body weight 2021-03-14 19:18:00 75.569 kg [facility] BMI 2021-03-14 19:18:00 29.51 kg/m2 [facility] Systolic blood 2021-02-14 15:55:00 127 mm[Hg] [facility] Diastolic blood 2021-02-14 15:55:00 89 mm[Hg] [facility] Heart rate 2021-02-14 15:55:00 70 /min [facility] Body temperature 2021-02-14 15:55:00 36.89 Aleja [facility] Respiratory rate 2021-02-14 15:55:00 18 /min [facility] Body height 2021-02-14 15:55:00 161.5 cm [facility] Body weight 2021-02-14 15:55:00 75.297 kg [facility] BMI 2021-02-14 15:55:00 28.85 kg/m2 [facility] Systolic blood 2020-07-11 15:31:00 116 mm[Hg] [facility] Diastolic blood 2020-07-11 15:31:00 79 mm[Hg] [facility] Heart rate 2020-07-11 15:31:00 68 /min [facility] Body temperature 2020-07-11 15:31:00 36.89 Aleja [facility] Respiratory rate 2020-07-11 15:31:00 18 /min [facility] Body height 2020-07-11 15:31:00 160 cm [facility] Body weight 2020-07-11 15:31:00 91.627 kg [facility] BMI 2020-07-11 15:31:00 35.78 kg/m2 [facility] Systolic blood 2020-05-11 18:18:00 124 mm[Hg] [facility] Diastolic blood 2020-05-11 18:18:00 81 mm[Hg] [facility] Heart rate 2020-05-11 18:18:00 82 /min [facility] Body temperature 2020-05-11 18:12:00 37.06 Aleja [facility] Respiratory rate 2020-05-11 18:12:00 18 /min [facility] Body height 2020-05-11 18:12:00 160 cm [facility] Body weight 2020-05-11 18:12:00 107.956 kg [facility] BMI 2020-05-11 18:12:00 42.16 kg/m2 [facility] Procedures Procedure Date / Time Performed Performing Clinician Sour e NOTICE OF PRIVACY 2021-02-20 23:11:38 Doctor Unassigned, No [facility] PRACTICES Name [facility] BI US GUIDED CORE 2020-08-25 19:01:26 Adum, Carolina Garcia [facility] BREAST BIOPSY LEFT Medical [facility] h BI ULTRASOUND BREAST 2020-08-04 19:59:45 Adum, Carolina Garcia [facility] LIMITED LEFT [facility] BI SCREENING MAMMOGRAM 2020-07-19 20:26:58 Adum, Carolina Garcia [facility] BILATERAL [facility] ASSIGNMENT OF BENEFITS 2020-07-19 19:51:38 Doctor Unassigned, No [facility] POCT TEST 2020-05-11 18:31:00 Adum, Carolina Garcia [facility] POCT URINALYSIS W/O 2020-05-11 18:13:00 AdCarolina alegria [facility] SPECIFIC GRAVITY [facility] ASSIGNMENT OF BENEFITS 2020-05-11 17:58:36 Doctor Unassigned, No [facility] Encounters Start End Encounter Admission Attending Care Care Encounter Source Date/Time Date/Time Type Type Clinicians Facility Department ID 2019-12-24 Outpatient [facility] TOMMY [id number] moria 11:09:07 [facility] 2021-07-11 2021-07-11 Outpatient R ADUM, [facility] [id number] Univers 09:00:00 09:00:00 [facility] [id number] [facility] 2021-07-11 2021-07-11 Outpatient R ADUM, [facility] [id number] Univers 09:00:00 09:00:00 [facility] 2021-03-14 2021-03-14 Nurse Nurse, [facility] 1.2.840.114 [id number] Univers 14:03:42 14:24:59 Visit Adum, Carolina Valentín Mcnair [id number] ity [facility] [id number] [facility] [phone] Mo dical nal [address] [facility] 2021-03-14 2021-03-14 Outpatient R ADUM, [facility] [id number] Univers 14:00:00 14:00:00 [facility] 2021-03-14 2021-03-14 Outpatient R AD, [facility] [id number] Univers 13:00:00 13:00:00 CAROLINA [id number] [facility] 2021-03-14 2021-03-14 Outpatient R [facility], [facility] [id number] Univers 13:00:00 13:00:00 [facility] 2021-02-24 2021-02-24 Outpatient R [facility] [id number] Univers 11:00:00 11:00:00 CAROLINA [id number] [facility] 2021-02-24 2021-02-24 Outpatient R AD, [facility] [id number] Univers 11:00:00 11:00:00 [facility] 2021-02-20 2021-02-20 [facility] [id number] Univers 17:45:00 23:59:00 Encounter Carolina Valentín Mcnair [id number] [facility] [id number] [facility] [phone] [facility] [address] 2021-02-20 2021-02-20 Outpatient AD, [facility] [id number] Univers 17:45:00 17:45:00 CAROLINA [id number] [facility] 2021-02-20 2021-02-20 Outpatient R AD, [facility] [id number] Univers 00:00:00 00:00:00 [facility] 2021-02-20 2021-02-20 Orders Doctor THOMSON 1.2.840.114 [id number] Univers 00:00:00 00:00:00 Only Unassigned, RYAN [id number] ity of [place] [facility] [id number] [place] [phone] [address] 2021-02-16 2021-02-16 [facility] [id number] Univers 00:00:00 00:00:00 Carolina Valentín Mcnair [id number] [id number] [phone] Mo dical nal [address] [facility] 2021-02-16 2021-02-16 [facility] 1.2.840.114 [id number] Univers 00:00:00 00:00:00 Management Carolina Mcnair [id number] [id number] [phone] Mo dical nal [address] [facility] 2021-02-16 2021-02-16 Patient [facility] 1.2.840.114 [id number] Univers 00:00:00 00:00:00 Outreach Ney PRIMARY [id number] i ty of [facility] [id number] [phone] Mo dical [address] 2021-02-14 2021-02-14 Office [facility] 1.2.840.114 [id number] Univers 10:51:50 11:49:18 Visit Carolina Mcnair [id number] [id number] [phone] Mo dical nal [address] [facility] 2021-02-14 2021-02-14 Outpatient ADUM, [facility] [id number] Univers 11:00:00 11:00:00 CAROLINA [id number] adilene of [facility] 2021-02-14 2021-02-14 Outpatient R AD, [facility] [id number] Univers 11:00:00 11:00:00 CAROLINA head [facility] 2020-08-25 2020-08-25 [facility] 1.2.840.114 [id number] Univers 12:52:34 23:59:00 Encounter Carolina Garcia [place] [id number] [place] [id number] [place] [facility] [phone] [address] 2020-08-25 2020-08-25 Outpatient R ADUM, [facility] [id number] Univers 13:00:00 13:00:00 CAROLINA [id number] ity [facility] 2020-08-25 2020-08-25 Outpatient R ADUM, [facility] [id number] Univers 00:00:00 00:00:00 [place] [facility] 2020-08-05 2020-08-05 [facility] 1.2.840.114 [id number] Univers 00:00:00 00:00:00 Management Carolina Garcia Jackson [id number] [id number] [phone] Mo dical nal [address] [place] [address] 2020-08-05 2020-08-05 [facility] [id number] Univers 00:00:00 00:00:00 Carolina L Jackson [id number] [id number] [phone] Mo dical nal [address] [place] [address] 2020-08-04 2020-08-04 [facility] 1.2.840.114 [id number] Univers 13:56:34 23:59:00 Encounter Carolina Garcia [place] [id number] [id number] [place] [phone] [address] 2020-08-04 2020-08-04 Outpatient R ADUM, [facility] [id number] Univers 14:00:00 14:00:00 CAROLINA ity [facility] 2020-08-04 2020-08-04 Outpatient R ADUM, [facility] [id number] Univers 00:00:00 00:00:00 CAROLINA ity [facility] 2020-07-27 2020-07-27 Outpatient R ADUM, [facility] [id number] Univers 14:00:00 14:00:00 CAROLINA [id number] ity of [facility] 2020-07-27 2020-07-27 Outpatient R ADUM, [facility] [id number] Univers 00:00:00 00:00:00 [place] ity of [facility] 2020-07-20 2020-07-20 Case Adum, [facility] 1.2.840.114 [id number] Univers 00:00:00 00:00:00 Management Carolina Garcia Xu [id number] [id number] [phone] Mo dical nal [address] [place] [address] 2020-07-19 2020-07-19 Hospital Ad, [facility] 1.2.840.114 [id number] Univers 14:53:16 23:59:00 Encounter Carolina Garcia Xu [id number] it[place] [id number] [phone] [facility] [address] 2020-07-19 2020-07-19 Outpatient R ADUM, [facility] [id number] Univers 00:00:00 00:00:00 CAROLINA [id number] ity of [facility] 2020-07-19 2020-07-19 Outpatient R ADUM, [facility] [id number] Univers 00:00:00 00:00:00 CAROLINA ity of [facility] 2020-07-19 2020-07-19 Orders Doctor ALIX 1.2.840.114 [id number] Univers 00:00:00 00:00:00 Only Unassigned, RYAN [id number] ity [place] [facility] [id number] [place] [phone] [facility] [address] 2020-07-11 2020-07-11 [facility] 1.2.840.114 [id number] Univers 10:03:42 11:07:10 Visit Carolina Garcia Xu [id number] [id number] [phone] Mo dical nal [address] [facility] 2020-07-11 2020-07-11 Outpatient ADUM, [facility] [id number] Univers 10:00:00 10:00:00 CAROLINA ity of [facility] 2020-07-11 2020-07-11 Outpatient R ADUM, [facility] [id number] Univers 10:00:00 10:00:00 CAR[place]INA ity of [facility] 2020-06-22 2020-06-22 Outpatient R ADUM, [facility] [id number] Univers 09:45:00 09:45:00 CAROLINA [id number] ity of [facility] 2020-06-22 2020-06-22 Outpatient R ADUM, [facility] [id number] Univers 09:45:00 09:45:00 CAROLINA ity of [facility] 2020-06-14 2020-06-14 Outpatient R ADUM, [facility] [id number] Univers 10:00:00 10:00:00 CAROLINA [id number] ity of [facility] 2020-06-14 2020-06-14 Outpatient R ADUM, [facility] [id number] Univers 10:00:00 10:00:00 CAR[place]INA ity of [facility] 2020-06-08 2020-06-08 Outpatient R ADUM, [facility] [id number] Univers 10:00:00 10:00:00 [place] ity of [facility] 2020-06-08 2020-06-08 Outpatient R ADUM, [facility] [id number] Univers 10:00:00 10:00:00 CAROLINA ity [facility] 2020-05-18 2020-05-18 Refill Adum, [facility] 1.2.840.114 [id number] Univers 00:00:00 00:00:00 Carolina Garcia [place] [id number] [id number] [phone] [address] 2020-05-11 2020-05-11 Office Adum, [facility] 1.2.840.114 [id number] Univers 13:01:45 14:22:11 Visit Carolina Garcia Jackson [id number] [id number] [phone] Mo dical nal [address] [facility] 2020-05-11 2020-05-11 Outpatient R ADUM, [facility] [id number] Univers 13:00:00 13:00:00 CAROLINA [id number] ity of [facility] 2020-05-11 2020-05-11 Outpatient R ADUM, [facility] [id number] Univers 13:00:00 13:00:00 CAROLINA ity of [facility] 2020-05-11 2020-05-11 Orders Doctor ALIX 1.2.840.114 [id number] Univers 00:00:00 00:00:00 Only Unassigned, RYAN [id number] [place] [facility] [id number] [place] [phone] [facility] [address] Results Test Test Test Results Result Source Description Time Comments Comments BI US GUIDED 2020-08- HISTORY: Left breast Un iversity of CORE BREAST 24 mass. COMPARISON: [facility] BIOPSY LEFT 19:26:07 Ultrasound study of [facility] 08/04/2020. TECHNIQUE: Procedural details are discussed with the patient regardingultrasound-guid ed biopsy and involved risks. Patient appeared to understandeverything and agreed. FINDINGS: Using sterile precautions, under local anesthesia, 6 passes weremade using 14-gauge Bard biopsy gun and samples were obtained from ?leftbreast mass. Subsequently biopsy clip was deployed and single mammogramview was obtained to confirm its position. External finger pressure was applied over the biopsy site. Biopsy sampleswere given to the injection mold technician for further management. Patienttolerated the procedure well and experienced no apparent complications. CONCLUSIONS: ? Core biopsy samples obtained from left breast mass withoutany apparent immediate complications. [facility], Radiant Results Inft User - 08/25/2020 2:27 PM CDTHISTORY: Left breast mass.COMPARISON: Ultrasound study of 08/04/2020.TECHNIQUE: Procedural details are discussed with the patient regardingultrasound-guid ed biopsy and involved risks. Patient appeared to understandeverything and agreed.FINDINGS: Using sterile precautions, under local anesthesia, 6 passes weremade using 14-gauge Bard biopsy gun and samples were obtained from leftbreast mass. Subsequently biopsy clip was deployed and single mammogramview was obtained to confirm its position.External finger pressure was applied over the biopsy site. Biopsy sampleswere given to the injection mold technician for further management. Patienttolerated the procedure well and experienced no apparent complications.CONCLUSION S: Core biopsy samples obtained from left breast mass withoutany apparent immediate complications. BI ULTRASOUND 2020-08- HISTORY: ?Abnormal Uni versity of BREAST LIMITED 03 mammogram. Evaluate [facility] LEFT 20:13:46 masses in the left Branch breast. TECHNIQUE: Upper-outer quadrant of the left breast was evaluated inradial/antiradial/sagi ttal/coronal planes both by the technologist and byme. Female technologist was present in the room during all imagingevaluations. FINDINGS: Hypoechoic, slightly macrolobulated shaped 7 x 5 mm essentially avascular lesion confirmed at 3:00 approximately 3 cm lateral to the nipple.A second mass that is seen in the mammogram study could not be visualizedby ultrasound. It is possible that this is an intramammary lymph node withechotexture that blends with surrounding fibrofatty tissue. CONCLUSIONS: 7 mm solid mass at 3:00 in left breast. Ultrasound-guidedbiopsy recommended. Biopsy procedure and clip placement were discussed withthe patient and she appeared to understand. ACR classification: Category II. [facility], [facility] Results Inft User - 08/04/2020 3:14 PM CDTHISTORY: Abnormal mammogram. Evaluate masses in the left breast.TECHNIQUE: Upper-outer quadrant of the left breast was evaluated inradial/antiradial/sagi ttal/coronal planes both by the technologist and byme. Female technologist was present in the room during all imagingevaluations.FINDI NGS: Hypoechoic, slightly macrolobulated shaped 7 x 5 mm essentially avascular lesion confirmed at 3:00 approximately 3 cm lateral to the nipple.A second mass that is seen in the mammogram study could not be visualizedby ultrasound. It is possible that this is an intramammary lymph node withechotexture that blends with surrounding fibrofatty tissue.CONCLUSIONS: 7 mm solid mass at 3:00 in left breast. Ultrasound-guidedbiopsy recommended. Biopsy procedure and clip placement were discussed withthe patient and she appeared to understand.ACR classification: Category II. BI SCREENING 2020-07- Examination:BI SCREENING [facility] of MAMMOGRAM 18 MAMMOGRAM BILATERAL [facility] BILATERAL 20:42:39 History:Patient is 39 Bra nch year old and is seen for: ?Routine screening. Computer-aided detection (CAD) utilized. Comparisons : None available Findings:The breasts are almost entirely fatty. LeftThere are 2 similar 9 mm intramammary lymph nodes seen in the upper outer quadrant of the left breast in the posterior depth, 8.5 cm from the nipple on the CC view. RightThere is an intramammary lymph node seen in the upper outer quadrant of the right breast in the posterior depth. There is no evidence of suspicious masses, calcifications, or other abnormal findings in the right breast. Impression:Two masses in upper outer LEFT breast, appears to be incidental 8 mm and 9 mm size lymph nodes. However, since this is baseline study, further evaluation by ultrasound requested. Recommendation:Ultrasoun d - LeftAnnual mammographic follow-up - Right BI-RADS Category: Left: 0 - Incomplete: Needs Additional Imaging EvaluationRight: 2 - BenignOverall: 0 - Incomplete: Needs Additional Imaging Evaluation POCT TEST 2020-05-11 18:31:00 Test Item Value Reference Range Interpretation Comme nts POCT PREG (test code = 1605) Negative On board controls acceptable with C Line (test code = 3574) Yes POCT PREG LOT # (test code = 3575) POCT PREG TEST DATE (test code = 3576) [facility] [id number] 18:31:00 Test Item Value Reference Range Interpretation Comments POCT PREG (test code = 1605) Negative On board controls acceptable with C Yes Line (test code = 3574) POCT PREG LOT # (test code = 3575) POCT PREG TEST DATE (test code = 3576) [facility] URINALYSIS W/O SPECIFIC [id number] 18:14:00 Test Item Value Reference Range Interpretation Comments POCT PH U (test code = 3254) 6 mg/dl 5-8 POCT U LEUK EST (test code = neg Negative - Negative 3263) POCT U NIT (test code = 3262) neg Negative - Negative POCT U PROT (test code = 3259) neg Negative - Negative POCT U GLU (test code = 3256) neg Negative - Negative POCT U KETONE (test code = 3258) neg Negative - Negative POCT U BLD (test code = 3257) 1+ Negative - Negative [facility]/O SPECIFIC [id number] 18:14:00 Test Item Value Reference Range Interpretation Comments POCT PH U (test code = 3254) 6 mg/dl 5-8 POCT U LEUK EST (test code = neg Negative - Negative 3263) POCT U NIT (test code = 3262) neg Negative - Negative POCT U PROT (test code = 3259) neg Negative - Negative POCT U GLU (test code = 3256) neg Negative - Negative POCT U KETONE (test code = 3258) neg Negative - Negative POCT U BLD (test code = 3257) 1+ Negative - Negative [facility]
[2022-05-09] MEDS ORDERED: MORPHINE 4 MG/ML SYR ONE (06:07)
[2022-05-09] MEDS ORDERED: NA CHLORIDE 0.9% 1,000 ML ONE (06:07)
[2022-05-09] MEDS ORDERED: ONDANSETRON 4 MG/2 ML VIAL ONE (06:07)
[2022-05-09 06:54] LABS: Absolute Lymphocytes (CBC) 1.1 K/uL (0.7-4.9); Hematocrit 32.3 % (36.0-45.0); Lymphocytes % 26.4 % (15.3-44.8); MPV 9.3 fL (7.6-11.3); RBC Red Blood Cell Count 3.89 M/uL (3.86-4.86)
[2022-05-09 07:11] LABS: Albumin 3.7 g/dL (3.4-5.0); Bilirubin Total 0.3 mg/dL (0.2-1.0); Potassium 3.7 mmol/L (3.5-5.1); Protein, Total 7.1 g/dL (6.4-8.2)
[2022-05-09 07:21] LABS: Urine Blood 2+ (Negative); Urine Glucose Negative (Negative); Urine Protein Negative (Negative); Urine Specific Gravity 1.015 (1.005-1.030)
[2022-05-09] MEDS ORDERED: KETOROLAC 30 MG/ML INJ ONE (07:58)
[2022-05-09 08:08] LABS: Urine Specific Gravity/Preg 1.015 (1.005-1.030)
--- NOTE | 2022-05-09 08:51 | RAD REPORT ---
EXAM DESCRIPTION: CT - Abdomen Pelvis Wo Contrast - 05/09/2022 8:36 am CLINICAL HISTORY: Abdominal pain. Flank pain, kidney stone suspected COMPARISON: CT-STONE PROTOCOL dated 12/11/2011 TECHNIQUE: CT imaging of the abdomen and pelvis was performed without contrast. Solid organ, bowel a nd vascular assessment is limited due to lack of IV and oral contrast. All CT scans are performed using dose optimization technique as appropriate and may include automated exposure control or mA/KV adjustment according to patient size. FINDINGS: The lower lung felipe are clear. The liver, spleen, pancreas, adrenal glands and kidneys are within normal limits for a limited non-co ntrast examination. No bowel obstruction, free air, free fluid or abscess. The appendix is normal. Moderate L5-S1 spondylosis with posterior disc bulge. IMPRESSION: No acute intra-abdominal or pelvic findings. Moderate L5-S1 spondylosis. A limited non-contrast examination was performed as detailed.
--- NOTE | 2022-05-09 09:05 | ER ---
Nurse's Notes [facility] Name: Roseline Ram Age: 41 yrs Sex: Female : 1980 Arrival Date: 05/09/2022 Time: 05:36 Bed 13 Private MD: Diagnosis: UTI/ Urinary tract infection, site not specified;L5-S1 Disc bulge Presentation: 05/09 05:49 Chief complaint: Patient states: she is having right sided back pain radiating down her bb right leg for several weeks pain is constant now. Coronavirus screen: At this time, the client does not indicate any symptoms associated with coronavirus-19. Ebola Screen: No symptoms or risks identified at this time. Initial Sepsis Screen: Does the patient meet any 2 criteria? No. Patient's initial sepsis screen is negative. Does the patient have a suspected source of infection? No. Patient's initial sepsis screen is negative. Risk Assessment: Do you want to hurt yourself or someone else? Patient reports no desire to harm self or others. Onset of symptoms was April 2022. 05:49 Method Of Arrival: Ambulatory bb 05:49 Acuity: RAVEN 3 bb HOSPICE MUSIC THERAPY: 05:51 LMP 05/07/2022 bb Historical: - Allergies: 05:51 Cipro; bb 05:51 Soma; bb 05:51 tramadol; bb 05:51 Ultram; bb - Home Meds: 05:51 Synthroid Oral [Active]; unknown med [Active]; bb - PMHx: 05:51 Hypothyroidism; Migraine; bb - PSHx: 05:51 Tonsillectomy; Gastric sleeve; section; bb - Immunization history:: Client reports receiving the 2nd dose of the Covid vaccine, Moderna. - Social history:: Smoking status: Patient denies any tobacco usage or history of. Screenin:48 Abuse screen: Denies threats or abuse. Denies injuries from another. Nutritional lp1 screening: No deficits noted. Tuberculosis screening: No symptoms or risk factors identified. Fall Risk None identified. Assessment: 06:30 General: Appears uncomfortable, Behavior is appropriate for age. Pain: Complains of lp1 pain in right low back Pain radiates to right mid back and right leg Pain currently is 7 out of 10 on a pain scale. Quality of pain is described as sharp, Pain began 3 weeks ago, worsening. Neuro: Level of Consciousness is awake, alert, obeys commands, Gait is steady, Intact. Cardiovascular: Patient's skin is warm and dry. Respiratory: Respiratory effort is even, unlabored. GI: No signs and/or symptoms were reported involving the gastrointestinal system. : Denies burning with urination. EENT: No signs and/or symptoms were reported regarding the EENT system. Derm: Skin is pink, warm \T\ dry. Musculoskeletal: No deficits noted. 07:30 Reassessment: Patient and/or family updated on plan of care and expected duration. Pain jg9 level reassessed. Patient is alert, oriented x 3, equal unlabored respirations, skin warm/dry/pink. Patient states symptoms have not improved. Patient reports very minimal relief in pain with medication, provider notified. 08:22 Reassessment: Patient and/or family updated on plan of care and expected duration. Pain jg9 level reassessed. Patient is alert, oriented x 3, equal unlabored respirations, skin warm/dry/pink. Patient reports no improvement in discomfort with Toradol-provider notified. Patient states symptoms have not improved. CT called and asked for ETA-they advised 10-15 min before they will be coming to get the patient. . Pain: Pain currently is 8 out of 10 on a pain scale. Vital Signs: 05:49 BP 129 / 88; Pulse 77; Resp 16 S; Temp 98.4(O); Pulse Ox 99% on R/A; Weight 81.65 kg bb (R); Height 5 ft. 3 in. (160.02 cm) (R); Pain 7/10; 07:25 BP 146 / 97; Pulse 62; Resp 14 S; Pulse Ox 100% ; Pain 8/10; jg9 08:45 BP 142 / 94; Pulse 62; Resp 16 S; Pulse Ox 100% on R/A; jg9 05:49 Body Mass Index 31.89 (81.65 kg, 160.02 cm) bb ED Course: 05:36 Patient arrived in ED. ja2 05:45 Ronald Quick MD is Attending Physician. 7 05:47 Kayla Espinoza, RN is Primary Nurse. lp1 05:51 Triage completed. bb 05:51 Arm band placed on Patient placed in an exam room, on a stretcher, on pulse oximetry. bb Family accompanied patient. 06:40 Patient has correct armband on for positive identification. lp1 06:40 Inserted saline lock: 20 gauge in right antecubital area, using aseptic technique. lp1 Blood collected. 07:05 Attending Physician role handed off by Ronald Quick MD ms3 07:05 Ulises Tian DO is Attending Physician. ms3 07:57 Primary Nurse role handed off by Kayla Espinoza, RN ll1 08:21 Tory Lawson, SELENA is Primary Nurse. jg9 08:38 CT Abd/Pelvis - Without Contrast In Process Unspecified. EDMS 09:04 Harvinder Stein DO is Referral Physician. ms3 09:14 No provider procedures requiring assistance completed. IV discontinued, intact, jg9 bleeding controlled, No redness/swelling at site. Administered Medications: 06:40 Drug: NS 0.9% 1000 ml Route: IV; Rate: 1 bolus; Site: right antecubital; lp1 08:00 Follow up: IV Status: Completed infusion; IV Intake: 1000ml jg9 06:40 Drug: Zofran (Ondansetron) 4 mg Route: IVP; Site: right antecubital; lp1 07:47 Follow up: Response: No adverse reaction jg9 06:40 Drug: morphine 4 mg Route: IVP; Infused Over: 4 mins; Site: right antecubital; lp1 07:22 Follow up: Response: Pain is unchanged, physician notified jg9 07:54 Drug: Ketorolac 15 mg Route: IVP; Site: right antecubital; jg9 08:21 Follow up: Response: Pain is unchanged, physician notified jg9 Medication: 07:30 VIS not applicable for this client. jg9 Point of Care Testing: Urine : 07:22 hCG Reading: Negative; Control Reading: Positive; jg9 Intake: 08:00 IV: 1000ml; Total: 1000ml. jg9 Outcome: 09:04 Discharge ordered by . ms3 09:14 Discharged to home ambulatory. jg9 09:14 Condition: stable 09:14 Discharge instructions given to patient, Instructed on discharge instructions, follow up and referral plans. Demonstrated understanding of instructions, follow-up care, Prescriptions given X 2. 09:15 Patient left the ED. jg9 Signatures: Dispatcher [employer] EDMS Kristen Davis RN RN bb Kayla Espinoza RN RN lp1 Srinivasan Jimenez RN RN ll1 Ulises Tian, DO LOPEZ ms3 Ronald Quick MD MD 7 Laura Astudillo Jennifer, RN RN jg9 Corrections: (The following items were deleted from the chart) 05:53 05:51 PMHx: Thyroid problem; bb bb 07:54 07:25 BP 146 / 97; Pulse 62bpm; Resp 14bpm; Spontaneous; Pulse Ox 100%; Pain 8/10; jg9 jg9
--- NOTE | 2022-05-09 09:05 | EDPHYS ---
Physician Documentation [facility] Name: Roseline Ram Age: 41 yrs Sex: Female : 1980 Arrival Date: 05/09/2022 Time: 05:36 Bed 13 Private MD: ED Physician Ulises Tian HPI: 05/09 06:00 This 41 yrs old Female presents to ER via Ambulatory with complaints of Back mh7 Pain. 06:00 The patient complains of pain in the right flank. The pain radiates to the right leg. mh7 Onset: The symptoms/episode began/occurred 3 week(s) ago, and became worse 4 day(s) ago. Modifying factors: The symptoms are alleviated by nothing. the symptoms are aggravated by movement, palpation/percussion. Associated signs and symptoms: Pertinent negatives: diarrhea, dizziness, dysuria, fever, urinary frequency, headache, hematuria, nausea, vomiting. Severity of pain: At its worst the pain was moderate 3 day(s) ago, in the emergency department the pain has improved moderately. GLOVE FORMER: 05:51 LMP 05/07/2022 bb Historical: - Allergies: 05:51 Cipro; bb 05:51 Soma; bb 05:51 tramadol; bb 05:51 Ultram; bb - Home Meds: 05:51 Synthroid Oral [Active]; unknown med [Active]; bb - PMHx: 05:51 Hypothyroidism; Migraine; bb - PSHx: 05:51 Tonsillectomy; Gastric sleeve; section; bb - Immunization history:: Client reports receiving the 2nd dose of the Covid vaccine, Moderna. - Social history:: Smoking status: Patient denies any tobacco usage or history of. ROS: 06:00 Constitutional: Negative for fever, chills, and weight loss, Eyes: Negative for injury, mh7 pain, redness, and discharge, Neck: Negative for injury, pain, and swelling, Cardiovascular: Negative for chest pain, palpitations, and edema, Respiratory: Negative for shortness of breath, cough, wheezing, and pleuritic chest pain, Abdomen/GI: Negative for abdominal pain, nausea, vomiting, diarrhea, and constipation, : Negative for injury, bleeding, discharge, and swelling, MS/Extremity: Negative for injury and deformity, Skin: Negative for injury, rash, and discoloration, Neuro: Negative for headache, weakness, numbness, tingling, and seizure, Psych: Negative for depression, anxiety, suicide ideation, homicidal ideation, and hallucinations, Allergy/Immunology: Negative for hives, rash, and allergies, Endocrine: Negative for neck swelling, polydipsia, polyuria, polyphagia, and marked weight changes, Hematologic/Lymphatic: Negative for swollen nodes, abnormal bleeding, and unusual bruising. Exam: 06:00 Head/Face: Normocephalic, atraumatic. Neck: Trachea midline, no thyromegaly or masses mh7 palpated, and no cervical lymphadenopathy. Supple, full range of motion without nuchal rigidity, or vertebral point tenderness. No Meningismus. Chest/axilla: Normal chest wall appearance and motion. Nontender with no deformity. No lesions are appreciated. Cardiovascular: Regular rate and rhythm with a normal S1 and S2. No gallops, murmurs, or rubs. Normal PMI, no JVD. No pulse deficits. Respiratory: Lungs have equal breath sounds bilaterally, clear to auscultation and percussion. No rales, rhonchi or wheezes noted. No increased work of breathing, no retractions or nasal flaring. Abdomen/GI: Soft, non-tender, with normal bowel sounds. No distension or tympany. No guarding or rebound. No evidence of tenderness throughout. 06:00 Skin: Warm, dry with normal turgor. Normal color with no rashes, no lesions, and no evidence of cellulitis. MS/ Extremity: Pulses equal, no cyanosis. Neurovascular intact. Full, normal range of motion. Neuro: Awake and alert, GCS 15, oriented to person, place, time, and situation. Cranial nerves II-XII grossly intact. Motor strength 5/5 in all extremities. Sensory grossly intact. Cerebellar exam normal. Normal gait. Psych: Awake, alert, with orientation to person, place and time. Behavior, mood, and affect are within normal limits. 06:00 Constitutional: The patient appears in no acute distress, alert, awake, uncomfortable. 06:00 Back: normal spinal alignment noted, CVA tenderness, that is moderate, is noted on the right, vertebral tenderness, is not appreciated. Vital Signs: 05:49 BP 129 / 88; Pulse 77; Resp 16 S; Temp 98.4(O); Pulse Ox 99% on R/A; Weight 81.65 kg bb (R); Height 5 ft. 3 in. (160.02 cm) (R); Pain 7/10; 07:25 BP 146 / 97; Pulse 62; Resp 14 S; Pulse Ox 100% ; Pain 8/10; jg9 08:45 BP 142 / 94; Pulse 62; Resp 16 S; Pulse Ox 100% on R/A; jg9 05:49 Body Mass Index 31.89 (81.65 kg, 160.02 cm) bb MDM: 07:06 Transition of care: Care assumed from Ronald Quick MD. ms3 07:49 Patient medically screened. ms3 09:08 Differential diagnosis: nephrolithiasis, pyelonephritis, UTI. Data reviewed: vital ms3 signs, nurses notes, lab test result(s), radiologic studies, and as a result, I will discharge patient. Counseling: I had a detailed discussion with the patient and/or guardian regarding: the historical points, exam findings, and any diagnostic results supporting the discharge/admit diagnosis, lab results, radiology results, the need for outpatient follow up, to return to the emergency department if symptoms worsen or persist or if there are any questions or concerns that arise at home. ED course: Discussed labs, CT, physical exam findings with patient. Patient to follow-up with primary care physician in 2 to 3 days. Patient understands and agrees with plan. All questions were answered. Return precautions discussed include worsening symptoms, or any other concerns. On reevaluation patient is alert and oriented x4, in no apparent distress, nontoxic-appearing, speaking full sentences, ambulatory in emergency department.. 05/09 05:59 Order name: CBC with Diff; Complete Time: 08:10 7 05/09 05:59 Order name: CMP; Complete Time: 08:10 7 05/09 05:59 Order name: Lipase; Complete Time: 08:10 7 05/09 07:22 Order name: Urine Dipstick-Ancillary; Complete Time: 08:10 EDMS 05/09 07:22 Order name: Urine --Ancillary (enter results); Complete Time: 08:10 bd 05/09 05:59 Order name: CT Abd/Pelvis - Without Contrast; Complete Time: 08:53 7 05/09 05:59 Order name: IV Saline Lock; Complete Time: 06:47 7 05/09 05:59 Order name: Labs collected and sent; Complete Time: 06:47 7 05/09 05:59 Order name: Urine Dipstick-Ancillary (obtain specimen); Complete Time: 07:21 7 05/09 05:59 Order name: Urine Test (obtain specimen); Complete Time: 07:21 mh7 Administered Medications: 06:40 Drug: NS 0.9% 1000 ml Route: IV; Rate: 1 bolus; Site: right antecubital; lp1 08:00 Follow up: IV Status: Completed infusion; IV Intake: 1000ml j9 06:40 Drug: Zofran (Ondansetron) 4 mg Route: IVP; Site: right antecubital; lp1 07:47 Follow up: Response: No adverse reaction j9 06:40 Drug: morphine 4 mg Route: IVP; Infused Over: 4 mins; Site: right antecubital; lp1 07:22 Follow up: Response: Pain is unchanged, physician notified jg9 07:54 Drug: Ketorolac 15 mg Route: IVP; Site: right antecubital; j9 08:21 Follow up: Response: Pain is unchanged, physician notified jg9 Point of Care Testing: Urine : 07:22 hCG Reading: Negative; Control Reading: Positive; jg9 Disposition Summary: 05/09/22 09:04 Discharge Ordered Location: Home ms3 Condition: Stable ms3 Diagnosis - UTI/ Urinary tract infection, site not specified ms3 - L5-S1 Disc bulge ms3 Followup: ms3 - With: Harvinder Stein, DO - When: 2 - 3 days - Reason: Recheck today's complaints Discharge Instructions: - Discharge Summary Sheet ms3 - Urinary Tract Infection, Adult ms3 Forms: - Medication Reconciliation Form ms3 - Thank You Letter ms3 - Antibiotic Education ms3 - Prescription Opioid Use ms3 Prescriptions: - Tylenol-Codeine #3 300 mg-30 mg Oral - take 1 tablet by ORAL route every 6 hours; 12 tablet; Refills: 0, Product ms3 Selection Permitted - cefpodoxime 100 mg Oral Tablet - take 1 tablet by ORAL route every 12 hours for 10 days take with food; 20 ms3 tablet; Refills: 0, Product Selection Permitted Signatures: Dispatcher [employer] Kristen Enrique RN RN bb Kayla Espinoza RN RN lp1 Ulises Tian DO DO ms3 Ronald Quick MD MD mh7 Tory Lawson RN RN jg9 Corrections: (The following items were deleted from the chart) 05:53 05:51 PMHx: Thyroid problem; candida tirado 06:00 05:59 This 41 yrs old Female presents to ER via Ambulatory with complaints of mh7 Back Pain. mh7
[2022-05-09 09:36] VITALS: TEMP 98.4
[2022-05-09 09:38] VITALS: O2SAT 100
[2022-05-09 09:40] VITALS: BP 142/94
== END 2022-05-09 09:15 | disposition home or self-care (01) ==
LOC: ER 05:34
DX: N39.0 Urinary tract infection, site not specified (principal); M51.87 Other intervertebral disc disorders, lumbosacral region; E03.9 Hypothyroidism, unspecified; Z88.1 Allergy status to other antibiotic agents; Z88.5 Allergy status to narcotic agent
CPT/HCPCS: 96361; 85025; 36415; 81025; 81003; 83690; 80053; 74176; 96375; 96374; 99284; J7030; J2405

== ENCOUNTER 2023-07-23 14:11 | Emergency (ER) | payer OTHER ==
--- OUTSIDE RECORDS SUMMARY | 2023-07-23 14:16 | XMS REPORT | Continuity of Care Document ---
:1980 Author Organization [facility] t Address [address] [place] [address] Care Team Providers Name Role Phone [email or web address]_Sudhakar Attending Clinician Unavailable DR SALBADOR CONDE Attending Clinician Unavailable Rosa Mesa Attending Clinician Unavailable CAROLINA LEONARD Attending Clinician Unavailable Nurse, [facility] Attending Clinician Unavailable Carolina Leonard MD Attending Clinician Doctor Unassigned, [place] Attending Clinician Unavailable Ney Zaidi DO Attending Clinician ANTONELLA_[email or web address]_Sudhakar Admitting Clinician Unavailable DR SALBADOR CONDE Admitting Clinician Unavailable KNOW, DOES_NOT Admitting Clinician Unavailable Payers Payer Name Policy Type Policy Number Effective Date Expiration Date S marysol [employer] - CHOICE [id number] 2020 00:00:00 (POS II) [id number] 1959 00:00:00 [employer] CHOICE POS [id number] 2020 00:00:00 II [facility] - [id number] 2018 00:00:00 OUT OF STATE Problems Condition [...] Active Overview : Univers ea ea 5-03 04/03/19 - ity of 00:00: Tranexami [place] 00 c Acid Medical started. Branch Acquired Acquired Disease Active Unive rs hypothyroi hypothyroi 5-03 it y of dism dism 00:00: [place] 00 Medical Branch Chlamydia Chlamydia Disease Active Overview: Univers trachomati trachomati -02/12/19 - ity of s s 00:00: s/p [place] infection infection 00 Azithromy M edical of lower of lower ayse Branch genitourin genitourin brigida sites brigida sites Acute Acute Disease Active Overview: Univer s pelvic pelvic -02/12/19 - ity of inflammato inflammato 00:00[place] ry disease ry disease 00 Rocephin, Medical (PID) (PID) Azithromy Branch ayse and Doxycylin e Trichomona Trichomona Disease Active Overview : Univers s s -02/12/19 - ity of vaginitis vaginitis 00:00[place] Flagyl [place] History of History of Disease Active Overview : Univers abnormal abnormal -19 04/04/19 - ity of cervical cervical 00:00: pap smear [place] as Papanicola Papanicola 00 normal. 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 Allergies, Adverse Reactions, Alerts Allergy Allergy Status Severity Reaction(s) Onset Inactive Treating Comm ents Source Name Type Date Date Clinician carisopr DA Active SV RASH [facility]- [place] 00:00: d 00 [facility] ciproflo DA Active SV JOINT PAIN [facility] xacin 4- [place] 00:00: d 00 [facility] tramadol DA Active SV RASH [facility] 4- [place] 00:00: d 00 [facility] CIPROFLO DRUG Active Other-Cmnt Univ ers XACIN INGREDI 04-26 ity of 00:00: [place] [address] [facility] CARISOPR DRUG Active Rash Univers ODOL INGREDI 04-26 ity of 00:00: [place] [address] [facility] TRAMADOL DRUG Active Rash Univers HCL INGREDI 04-26 ity of 00:00: [place] [address] [facility] Ciproflo Propensi Active Other - See Joint U nivers xacin ty to comments - pain ity of adverse 00:00: [place] reaction 00 [facility] Carisopr Propensi Active Rash Univer s odol ty to 5-26 ity of adverse 00:00: [place] reaction 00 [facility] Tramadol Propensi Active Rash Univer s Hcl ty to 5-26 ity of adverse 00:00: [place] reaction 00 [facility] SOMA DA Active U 2007-0 [facility] [place] 00:00: d 00 [facility] ULTRAM DA Active U 2007-0 [facility] [place] 00:00: d 00 [facility] carisopr DA Active U 2007-0 [facility] odol - [place] 00:00: d 00 [facility] ciproflo DA Active U 2007-0 [facility] xacin - [place] 00:00: d 00 [facility] tramadol DA Active U 2007-0 [facility] 7- [place] 00:00: d 00 [facility] CIPRO DA Active U 2007-0 [facility] [place] 00:00: d 00 [facility] No Known DA Active U 2007-0 [facility] Contrast - [place] Allergie 00:00: d s 00 Medical [place] No Known DA Active U 2007-0 [facility] Food - [place] Allergie 00:00: d s 00 [facility] No Known DA Active U 2008-0 [facility] Other 06-21 [place] Allergie 00:00: d s 00 Medical [place] Ultram DA Active Unknown Hives [facility] Soma DA Active Unknown Rash [facility] Cipro DA Active Unknown joint pain [facility] Social History Social Habit Start Date Stop Date Quantity Comments Source Exposure to Not sure [facility] SARS-CoV-2 [facility] (event) Branch Tobacco use and 2021-03-14 2021-03-14 Never used Universit y of exposure 00:00:00 00:00:00 [facility] [facility] Alcohol intake 2021-03-14 2021-03-14 Current University 00:00:00 00:00:00 non-drinker of [facility] alcohol Branch (finding) Sex Ass[birth year] At [birth year] Universit y of 00:00:00 00:00:00 [facility] [facility] Smoking Status Start Date Stop Date Source Never smoker [facility] Medications Ordered Filled Start Stop Current Ordering Indication Dosage Frequency Signature Comments Components Source Medication Medication Date Date Medication? Clinician (SIG) Name Name cefTRIAXone 2020- No [id number] 250mg Univers (ROCEPHIN) 02-14 ity of injection 17:45: 16:36 [place] 250 mg 00 :00 [facility] cefTRIAXone 2020- No [id number] 250mg 250 mg, Univers (ROCEPHIN) 02-14 Intramuscu it y of injection 17:45: 16:36 [place], [place]CE, [place] 250 mg 00 :00 1 dose, [facility] 02/14/21 at 1245, Routine
Reason for Anti-Infec tive: Documented Infection< br>Documen chris Infection Site: Blood
D uration of Therapy: Other (see Comments) cefTRIAXone 2020- No [id number] 250mg Univers (ROCEPHIN) 02-14 ity of injection 17:45: 16:36 [place] 250 mg 00 :00 [facility] cefTRIAXone 2020- No [id number] 250mg 250 mg, Univers (ROCEPHIN) 02-14 Intramuscu it y of injection 17:45: 16:36 lar, ONCE, [place] 250 mg 00 :00 1 dose, Medical Tue Branch 02/14/21 at 1245, Routine
Reason for Anti-Infec tive: Documented Infection< br>Documen chris Infection Site: Blood
D uration of Therapy: Other (see Comments) vitamin Yes 1000ug Take 1,000 Un abdoul [...] Medica l mcg tablet Branch doxycycline Yes [id number] 100mg Take 1 Univers hyclate 100 3-16 tablet by ity of mg tablet 00:00: mouth 2 [place] 00 (two) Medical times Branch daily. metroNIDAZO 2021-0 Yes [id number] 500mg Take 1 Univers LE 500 mg 3-16 tablet by ity o f tablet 00:00: mouth [place] 00 every 12 Medical (twelve) Branch hours. doxycycline 2020-0 Yes [id number] 100mg Take 1 Univers hyclate 100 3-16 tablet by ity of mg tablet 00:00: mouth 2 [place] 00 (two) Medical times Branch daily. metroNIDAZO 2020-0 Yes [id number] 500mg Take 1 Univers LE 500 mg 3-16 tablet by ity o f tablet 00:00: mouth [place] 00 every 12 Medical (twelve) Branch hours. doxycycline 2020-0 Yes [id number] 100mg Take 1 Univers hyclate 100 3-16 tablet by ity of mg tablet 00:00: mouth 2 [place] 00 (two) Medical times Branch daily. metroNIDAZO 2020-0 Yes [id number] 500mg Take 1 Univers LE 500 mg 3-16 tablet by ity o f tablet 00:00: mouth [place] 00 every 12 Medical (twelve) Branch hours. doxycycline 2020-0 Yes [id number] 100mg Take 1 Univers hyclate 100 3-16 tablet by ity of mg tablet 00:00: mouth 2 [place] 00 (two) Medical times Branch daily. metroNIDAZO 2020-0 Yes [id number] 500mg Take 1 Univers LE 500 mg 3-16 tablet by ity o f tablet 00:00: mouth [place] 00 every 12 Medical (twelve) Branch hours. doxycycline 2020-0 Yes [id number] 100mg Take 1 Univers hyclate 100 3-16 tablet by ity of mg tablet 00:00: mouth 2 [place] 00 (two) Medical times Branch daily. metroNIDAZO 2020-0 Yes [id number] 500mg Take 1 Univers LE 500 mg 3-16 tablet by ity o f tablet 00:00: mouth [place] 00 every 12 Medical (twelve) Branch hours. doxycycline 2020-0 Yes [id number] 100mg Take 1 Univers hyclate 100 3-16 tablet by ity of mg tablet 00:00: mouth 2 [place] 00 (two) Medical times Branch daily. metroNIDAZO 2020-0 Yes [id number] 500mg Take 1 Univers LE 500 mg 3-16 tablet by ity o f tablet 00:00: mouth [place] 00 every 12 Medical (twelve) Branch hours. doxycycline 2021-0 Yes [id number] 100mg Take 1 Univers hyclate 100 3-16 tablet by ity of mg tablet 00:00: mouth 2 (two) Medical times Branch daily. metroNIDAZO 2021-0 Yes [id number] 500mg Take 1 Univers LE 500 mg 3-16 tablet by ity o f tablet 00:00: mouth [place] 00 every 12 Medical (twelve) Branch hours. doxycycline 2021-0 Yes [id number] 100mg Take 1 Univers hyclate 100 3-16 tablet by ity of mg tablet 00:00: mouth 2 (two) Medical times Branch daily. metroNIDAZO 2021-0 Yes [id number] 500mg Take 1 Univers LE 500 mg 3-16 tablet by ity o f tablet 00:00: mouth 00 every 12 Medical (twelve) Branch hours. tranexamic 2020-0 Yes [id number] 1300mg Take 2 Univers acid 650 mg 6-17 tablets by it y of tablet 00:00: mouth 3 (three) Medical times Branch daily. tranexamic 2020-0 Yes [id number] 1300mg Take 2 Univers acid 650 mg 6-17 tablets by it y of tablet 00:00: mouth (three) Medical times Branch daily. tranexamic 2020-0 Yes [id number] 1300mg Take 2 Univers acid 650 mg 6-17 tablets by it y of tablet 00:00: mouth 3 (three) Medical times Branch daily. tranexamic 2020-0 Yes [id number] 1300mg Take 2 Univers acid 650 mg 6-17 tablets by it y of tablet 00:00: mouth 3 (three) Medical times Branch daily. tranexamic 2020-0 Yes [id number] 1300mg Take 2 Univers acid 650 mg 6-17 tablets by it y of tablet 00:00: mouth (three) Medical times Branch daily. tranexamic 2020-0 Yes [id number] 1300mg Take 2 Univers acid 650 mg 6-17 tablets by it y of tablet 00:00: mouth 3 (three) Medical times Branch daily. tranexamic 2020-0 Yes [id number] 1300mg Take 2 Univers acid 650 mg 6-17 tablets by it y of tablet 00:00: mouth 3 (three) Medical times Branch daily. tranexamic 2020-0 Yes [id number] 1300mg Take 2 Univers acid 650 mg 6-17 tablets by it y of tablet 00:00: mouth (three) Medical times Branch daily. tranexamic 2020-0 Yes [id number] 1300mg Take 2 Univers acid 650 mg 6-17 tablets by it y of tablet 00:00: mouth (three) Medical times Branch daily. tranexamic 2020-0 Yes [id number] 1300mg Take 2 Univers acid 650 mg 6-17 tablets by it y of tablet 00:00: mouth (three) Medical times Branch daily. tranexamic 2020-0 Yes [id number] 1300mg Take 2 Univers acid 650 mg 6-17 tablets by it y of tablet 00:00: mouth (three) Medical times Branch daily. tranexamic 2020-0 Yes [id number] 1300mg Take 2 Univers acid 650 mg 6-17 tablets by it y of tablet 00:00: mouth () Medical times Branch daily. tranexamic 2020-0 Yes [id number] 1300mg Take 2 Univers acid 650 mg 6-17 tablets by it y of tablet 00:00: mouth ([facility]) Medical times Branch daily. tranexamic 2020-0 Yes [id number] 1300mg Take 2 Univers acid 650 mg 6-17 tablets by it y of tablet 00:00: mouth ([facility]) Medical times Branch daily. tranexamic 2020-0 Yes [id number] 1300mg Take 2 Univers acid 650 mg 6-17 tablets by it y of tablet 00:00: mouth [place] (three) Medical times Branch daily. tranexamic 2020-0 Yes [id number] 1300mg Take 2 Univers acid 650 mg 6-17 tablets by it y of tablet 00:00: mouth (three) Medical times Branch daily. tranexamic 2020-0 Yes [id number] 1300mg Take 2 Univers acid 650 mg 6-17 tablets by it y of tablet 00:00: mouth [place] (three) Medical times Branch daily. tranexamic 2020-0 Yes [id number] 1300mg Take 2 Univers acid 650 mg 6-17 tablets by it y of tablet 00:00: mouth [place] (three) Medical times Branch daily. cefTRIAXone 2020-0 2020- No [id number] 250mg Univers (ROCEPHIN) 6-10 05-11 ity of injection 19:46: 19:02 [place] 250 mg 00 :00 [facility] cefTRIAXone 2020-0 2020- No [id number] 250mg 250 mg, Univers (ROCEPHIN) 05-11 Intramuscu it y of injection 19:46: 19:02 lar, ONCE, [place] 250 mg 00 :00 1 dose, [facility] 05/11/20 at 1500, Routine
Reason for Anti-Infec tive: Empiric Therapy for Suspected Infection< br>Empiric Therapy Site: Pelvic
Duration of therapy: 7 days cefTRIAXone 2020-0 2020- No [id number] 250mg Univers (ROCEPHIN) 05-11 ity of injection 19:46: 19:02 [place] 250 mg 00 :00 [facility] cefTRIAXone 2020-0 2020- No [id number] 250mg 250 mg, Univers (ROCEPHIN) 05-11 Intramuscu it y of injection 19:46: 19:02 lar, ONCE, [place] 250 mg 00 :00 1 dose, [facility] 05/11/20 at 1500, Routine
Reason for Anti-Infec [...] l mcg tablet Branch doxycycline 2020-0 Yes [id number] 100mg Take 1 Univers hyclate 100 6-10 tablet by ity of mg tablet 00:00: mouth 2 [place] 00 (two) Medical times Branch daily. metroNIDAZO 2020-0 Yes [id number] 500mg Take 1 Univers LE 500 mg 6-10 tablet by ity o f tablet 00:00: mouth [place] 00 every 12 Medical (twelve) Branch hours. doxycycline 2020-0 Yes [id number] 100mg Take 1 Univers hyclate 100 6-10 tablet by ity of mg tablet 00:00: mouth 2 [place] 00 (two) Medical times Branch daily. metroNIDAZO 2020-0 Yes [id number] 500mg Take 1 Univers LE 500 mg 6-10 tablet by ity o f tablet 00:00: mouth [place] 00 every 12 Medical (twelve) Branch hours. doxycycline 2020-0 Yes [id number] 100mg Take 1 Univers hyclate 100 6-10 tablet by ity of mg tablet 00:00: mouth 2 [place] 00 (two) Medical times Branch daily. metroNIDAZO 2020-0 Yes [id number] 500mg Take 1 Univers LE 500 mg 6-10 tablet by ity o f tablet 00:00: mouth [place] 00 every 12 Medical (twelve) Branch hours. doxycycline 2020-0 2020- No [id number] 100mg Take 1 Univers hyclate 100 6-10 08-10 tablet by it y of mg tablet 00:00: 00:00 mouth 2 [place] :[place] (two) Medical times Branch daily. metroNIDAZO 2020-0 2020- No [id number] 500mg Take 1 Univers LE 500 mg 6-10 08-10 tablet by ity of tablet 00:00: 00:00 mouth [place] 00 :00 every 12 Medical (twelve) Branch hours. doxycycline 2020-0 2020- No [id number] 100mg Take 1 Univers hyclate 100 6-10 08-10 tablet by it y of mg tablet 00:00: 00:00 mouth 2 [place] :[place] (two) Medical times Branch daily. metroNIDAZO 2020-0 2020- No [id number] 500mg Take 1 Univers LE 500 mg [...] 300 mg 5-27 ity of capsule 00:00: [place] 00 Medical Branch gabapentin 2020-0 Yes Univers 300 mg 5-27 ity of capsule 00:00: [place] 00 Medical Branch gabapentin 2020-0 Yes Univers 300 mg 5-27 ity of capsule 00:00: [place] 00 Medical Branch gabapentin 2020-0 Yes Univers 300 mg 5-27 ity of capsule 00:00: [place] 00 Medical Branch gabapentin 2020-0 Yes Univers 300 mg 5-27 ity of capsule 00:00: [place] 00 Medical Branch gabapentin 2020-0 Yes Univers 300 mg 5-27 ity of capsule 00:00: [place] 00 Medical Branch gabapentin 2020-0 Yes Univers 300 mg 5-27 ity of capsule 00:00: [place] 00 Medical Branch gabapentin 2020-0 Yes Univers 300 mg 5-27 ity of capsule 00:00: [place] 00 Medical Branch gabapentin 2020-0 Yes Univers 300 mg 5-27 ity of capsule 00:00: [place] 00 Medical Branch gabapentin 2020-0 Yes Univers 300 mg 5-27 ity of capsule 00:00: [place] 00 Medical Branch gabapentin 2020-0 Yes Univers 300 mg 5-27 ity of capsule 00:00: [place] 00 Medical Branch gabapentin 2020-0 Yes Univers 300 mg 5-27 ity of capsule 00:00: [place] 00 Medical Branch gabapentin 2020-0 Yes Univers 300 mg 5-27 ity of capsule 00:00: [place] 00 Medical Branch gabapentin 2020-0 Yes Univers 300 mg 5-27 ity of capsule 00:00: [place] 00 Medical Branch gabapentin 2020-0 Yes Univers 300 mg 5-27 ity of capsule 00:00: [place] 00 Medical Branch gabapentin 2020-0 Yes Univers 300 mg 5-27 ity of capsule 00:00: [place] 00 Medical Branch levothyroxi 2019-0 Yes 75ug Take 1 Univ ers ne 75 mcg 5-03 tablet by ity o f tablet 00:00: mouth [place] 00 every Medical morning. Branch levothyroxi 2019-0 Yes 75ug Take 1 Univ ers ne 75 mcg 5-03 tablet by ity o f tablet 00:00: mouth [place] 00 every Medical morning. Branch levothyroxi 2019-0 Yes 75ug Take 1 Univ ers ne 75 mcg 5-03 tablet by ity o f tablet 00:00: mouth [place] 00 every Medical morning. Branch levothyroxi 2019-0 Yes 75ug Take 1 Univ ers ne 75 mcg 5-03 tablet by ity o f tablet 00:00: mouth [place] 00 every Medical morning. Branch levothyroxi 2019-0 Yes 75ug Take 1 Univ ers ne 75 mcg 5-03 tablet by ity o f tablet 00:00: mouth [place] 00 every Medical morning. Branch levothyroxi 2019-0 [...] every Medical morning. Branch Tranexamic 2019-0 Yes [id number] 1300mg Take 2 Univers Acid 650 mg 5-03 tablets by it y of tablet 00:00: mouth 3 [place] 00 (three) Medical times Branch daily. levothyroxi 2019-0 Yes 75ug Take 1 Univ ers ne 75 mcg 5-03 tablet by ity o f tablet 00:00: mouth [place] 00 every Medical morning. Branch Tranexamic 2019-0 Yes [id number] 1300mg Take 2 Univers Acid 650 mg 5-03 tablets by it y of tablet 00:00: mouth 3 [place] 00 (three) Medical times Branch daily. levothyroxi 2019-0 Yes 75ug Take 1 Univ ers ne 75 mcg 5-03 tablet by ity o f tablet 00:00: mouth [place] 00 every Medical morning. Branch Tranexamic 2019-0 Yes [id number] 1300mg Take 2 Univers Acid 650 mg 5-03 tablets by it y of tablet 00:00: mouth 3 [place] 00 (three) Medical times Branch daily. levothyroxi 2019-0 Yes 75ug Take 1 Univ ers ne 75 mcg 5-03 tablet by ity o f tablet 00:00: mouth [place] 00 every Medical morning. Branch levothyroxi 2018-0 Yes 75ug Take 1 Univ ers ne 75 mcg 5-03 tablet by ity o f tablet 00:00: mouth [place] 00 every Medical morning. Branch Tranexamic 2018-0 2020- No [id number] 1300mg Take 2 Univers Acid 650 mg 5-03 06-17 tablets by i ty of tablet 00:00: 00:00 mouth 3 [place] 00 :00 (three) Medical times Branch daily. phentermine 2019-0 Yes TK 1 T PO U nivers 37.5 mg 4-13 QAM ity of tablet 00:00: [place] 00 Medical Branch phentermine 2019-0 Yes TK 1 T PO U nivers 37.5 mg 4-13 QAM ity of tablet 00:00: [place] 00 Medical Branch phentermine 2019-0 Yes TK 1 T PO U nivers 37.5 mg 4-13 QAM ity of tablet 00:00: [place] 00 Medical Branch phentermine 2019-0 Yes TK 1 T PO U nivers 37.5 mg 4-13 QAM ity of tablet 00:00: [place] 00 Medical Branch phentermine 2019-0 Yes TK 1 T PO U nivers 37.5 mg 4-13 QAM ity of tablet 00:00: [place] 00 Medical Branch phentermine 2019-0 Yes TK 1 T PO U nivers 37.5 mg 4-13 QAM ity of tablet 00:00: [place] 00 Medical Branch phentermine 2019-0 Yes TK 1 T PO U nivers 37.5 mg 4-13 QAM ity of tablet 00:00: [place] 00 Medical Branch phentermine 2019-0 Yes TK 1 T PO U nivers 37.5 mg 4-13 QAM ity of tablet 00:00: [place] [address] Medical Branch phentermine 2019-0 Yes TK 1 T PO U nivers 37.5 mg 4-13 QAM ity of tablet 00:00: [place] 00 Medical Branch phentermine 2019-0 Yes TK 1 T PO U nivers 37.5 mg 4-13 QAM ity of tablet 00:00: [place] [address] Medical Branch phentermine 2019-0 Yes TK 1 T PO U nivers 37.5 mg 4-13 QAM ity of tablet 00:00: [place] [address] Medical Branch phentermine 2019-0 Yes TK 1 T PO U nivers 37.5 mg 4-13 QAM ity of tablet 00:00: [place] [address] Medical Branch phentermine 2019-0 Yes TK 1 T PO U nivers 37.5 mg 4-13 QAM ity of tablet 00:00: [place] 00 Medical Branch phentermine 2019-0 2021- No TK 1 T PO Univers 37.5 mg 4-13 03-16 QAM ity of tablet 00:00: 00:00 [place] 00 :00 Medical Branch phentermine 2019-0 2021- No TK 1 T PO Univers 37.5 mg 4-13 03-16 QAM ity of tablet 00:00: 00:00 [place] 00 :00 [facility] Vital Signs Vital Name Observation Time Observation Value Comments Source Height 2023-05-08 06:50:00 160.02 CM Weight 2023-05-08 06:50:00 169.8 KG Height 2023-05-07 10:52:00 160.02 CM Systolic blood 2021-03-14 19:18:00 123 mm[Hg] Univer sity of pressure [facility] [facility] Diastolic blood 2021-03-14 19:18:00 85 mm[Hg] Unive rsity of pressure [facility] [facility] Heart rate 2021-03-14 19:18:00 64 /min [facility] Body temperature 2021-03-14 19:18:00 36.61 Aleja Univ ersity of [place] [facility] Respiratory rate 2021-03-14 19:18:00 18 /min Univ ersity of [place] [facility] Body height 2021-03-14 19:18:00 160 cm Universi ty of [place] [facility] Body weight 2021-03-14 19:18:00 75.569 kg Universi ty of [place] [facility] BMI 2021-03-14 19:18:00 29.51 kg/m2 Universi ty of [place] [facility] Systolic blood 2021-02-14 15:55:00 127 mm[Hg] Univer sity of pressure [place] [facility] Diastolic blood 2021-02-14 15:55:00 89 mm[Hg] Unive rsity of pressure [place] [facility] Heart rate 2021-02-14 15:55:00 70 /min Universi ty of [place] [facility] Body temperature 2021-02-14 15:55:00 36.89 Aleja Univ ersity of [place] [facility] Respiratory rate 2021-02-14 15:55:00 18 /min Univ ersity of [place] [facility] Body height 2021-02-14 15:55:00 161.5 cm Universi ty [facility] [place] [facility] Body weight 2021-02-14 15:55:00 75.297 kg [facility]i ty [facility] [place] [facility] BMI 2021-02-14 15:55:00 28.85 kg/m2 Universi ty [facility] [place] [facility] Systolic blood 2020-07-11 15:31:00 116 mm[Hg] Univer sity of pressure [place] [facility] Diastolic blood 2020-07-11 15:31:00 79 mm[Hg] Unive rsity of pressure [place] [facility] Heart rate 2020-07-11 15:31:00 68 /min Universi ty [facility] [place] [facility] Body temperature 2020-07-11 15:31:00 36.89 Aleja Univ ersity [facility] [place] [facility] Respiratory rate 2020-07-11 15:31:00 18 /min Univ ersity [facility] [place] [facility] Body height 2020-07-11 15:31:00 160 cm [facility]i ty [facility] [place] [facility] Body weight 2020-07-11 15:31:00 91.627 kg Universi ty [facility] [place] [facility] BMI 2020-07-11 15:31:00 35.78 kg/m2 Universi ty [facility] [place] [facility] Systolic blood 2020-05-11 18:18:00 124 mm[Hg] Univer sity of pressure [place] [facility] Diastolic blood 2020-05-11 18:18:00 81 mm[Hg] [facility] [facility] Heart rate 2020-05-11 18:18:00 82 /min [facility] Body temperature 2020-05-11 18:12:00 37.06 Aleja [facility] Respiratory rate 2020-05-11 18:12:00 18 /min [facility] Body height 2020-05-11 18:12:00 160 cm [facility] Body weight 2020-05-11 18:12:00 107.956 kg [facility] BMI 2020-05-11 18:12:00 42.16 kg/m2 [facility] Procedures Procedure Date / Time Performed Performing Clinician Seven e EXCISION RIGHT 2023-05-08 00:00:00 [place] [facility] AUDITORY [facility] Center NOTICE OF PRIVACY 2021-02-20 23:11:38 Doctor Unassigned, No [facility] BI US GUIDED CORE 2020-08-25 19:01:26 Adum, Carolina Laura [facility] BREAST BIOPSY LEFT [facility] h BI ULTRASOUND BREAST 2020-08-04 19:59:45 Adum, Carolina Laura [facility] LIMITED LEFT [facility] BI SCREENING MAMMOGRAM 2020-07-19 20:26:58 Adum, Carolina Laura [facility] BILATERAL [facility] ASSIGNMENT OF BENEFITS 2020-07-19 19:51:38 Doctor Unassigned, No [facility] POCT TEST 2020-05-11 18:31:00 AdCarolina alegria [facility] POCT URINALYSIS W/O 2020-05-11 18:13:00 AdumCarolina [facility] SPECIFIC GRAVITY [facility] ASSIGNMENT OF BENEFITS 2020-05-11 17:58:36 Doctor Unassigned, No [facility] Encounters Start End Encounter Admission Attending Care Care Encounter Source Date/Time Date/Time Type Type Clinicians Facility Department ID 2019-12-24 Outpatient [facility] [id number] moria 11:09:07 valentín laura [facility] 2023-07-16 2023-07-16 Outpatient [email or web address] PRIV PRIV [id number] [facility] 00:00:00 00:00:00 diyala_S [id number] Medic al 2023-06-27 2023-06-27 Outpatient [email or web address] PRIV PRIV [id number] [facility] 00:00:00 00:00:00 diyala_S [id number] Medic al 2023-06-27 2023-06-27 Outpatient [id number] PRIV PRIV [id number] [facility] 00:00:00 00:00:00 diyala_S [id number] Medic al 2023-06-11 2023-06-11 Outpatient [id number] PRIV PRIV [id number] [facility] 00:00:00 00:00:00 diyala_S [id number] Medic al 2023-05-08 2023-05-08 Outpatient Jose CONDE [facility] [id number] [facility] 06:25:00 10:45:00 [place] [facility] 2023-03-07 2023-03-07 Outpatient ADRIENNE Mesa [facility] [id number] [facility] 10:12:00 10:12:00 Rosa Crews [facility] [place] 2021-07-11 2021-07-11 Outpatient Barbara LEONARD [facility] [id number] Univers 09:00:00 09:00:00 CAROLINA [facility] 2021-03-14 2021-03-14 Nurse Nurse, [facility] 1.2.840.114 [id number] Univers 14:03:42 14:24:59 Visit Carolina Leonard [id number] [facility] [id number] Amita Muhammad [phone] [place] [address] [address] 2021-03-14 2021-03-14 Outpatient R HERRERA [facility] [id number] Univers 14:00:00 14:00:00 [place] [facility] 2021-03-14 2021-03-14 Outpatient R ADTARA, [facility] [id number] Univers 13:00:00 13:00:00 [place] [facility] 2021-02-24 2021-02-24 Outpatient R AD, [facility] [id number] Univers 11:00:00 11:00:00 CAROLINA head [facility] 2021-02-20 2021-02-20 Hospital [facility] 1.2.840.114 [id number] Univers 17:45:00 23:59:00 Encounter Carolinapadmaja Mcnair [id number] [id number] [phone] [facility] [address] [place] 2021-02-20 2021-02-20 Outpatient R AD, [facility] [id number] Univers 00:00:00 00:00:00 CAROLINA head [facility] 2021-02-20 2021-02-20 Orders Doctor ALIX 1.2.840.114 [id number] Univers 00:00:00 00:00:00 Only Unassigned, RYAN [id number] ity of [place] [facility] 4.2.7.2.686 [place] [phone] [facility] [address] [place] 2021-02-16 2021-02-16 Telephone [facility] [id number] Univers 00:00:00 00:00:00 Carolina Mcnair [id number] [id number] [phone] [place] dical nal 134 [facility] 2021-02-16 2021-02-16 Case [facility] 1.2.840.114 [id number] Univers 00:00:00 00:00:00 Management Carolina Mcnair [id number] [id number] [phone] Az dical nal 134 [facility] 2021-02-16 2021-02-16 Patient [place] [facility] 1.2.840.114 [id number] Univers 00:00:00 00:00:00 Outreach Ney PRIMARY [id number] i ty of [facility] [place]2.7.2.[place] [phone] Az dical [address] [place] 2021-02-14 2021-02-14 Office [facility] 1.2.840.114 [id number] Univers 10:51:50 11:49:18 Visit Carolina Cuiton [id number] it[place] of [id number] [phone] Az dical nal 134 [facility] 2021-02-14 2021-02-14 Outpatient R [facility] [id number] Univers 11:00:00 11:00:00 CAROLINA ity of [facility] 2020-08-25 2020-08-25 [facility] 1.2.840.114 [id number] Univers 12:52:34 23:59:00 Encounter Carolina Cuiton [id number] ity of [id number] [place] [phone] [facility] [address] [place] [address] 2020-08-25 2020-08-25 Outpatient R [facility] [id number] Univers 00:00:00 00:00:00 CAROLINA ity of [facility] 2020-08-05 2020-08-05 [facility] 1.2.840.114 [id number] Univers 00:00:00 00:00:00 Management Carolina Cuiton [id number] [place] of [place] [phone] Az dical nal 134 [facility] 2020-08-05 2020-08-05 [facility] [id number] Univers 00:00:00 00:00:00 Carolina Laura [place] [id number] ity of [id number] [phone] Az dical nal 134 [facility] 2020-08-04 2020-08-04 [facility] 1.2.840.114 [id number] Univers 13:56:34 23:59:00 Encounter Carolina Laura [place] [id number] ity of [id number] [place] [phone] [facility] [address] [place] 2020-08-04 2020-08-04 Outpatient R AD, [facility] [id number] Univers 00:00:00 00:00:00 CAROLINA head [facility] 2020-07-27 2020-07-27 Outpatient R AD, [facility] [id number] Univers 00:00:00 00:00:00 CAROLINA head [facility] 2020-07-20 2020-07-20 Case Ad, [facility] 1.2.840.114 [id number] Univers 00:00:00 00:00:00 Management Carolina Laura Xu [id number] ity of [place] [id number] [facility] Professio [phone] [facility] 134 [facility] 2020-07-19 2020-07-19 Hospital [facility] 1.2.840.114 [id number] Univers 14:53:16 23:59:00 Encounter Carolina Laura Xu [id number] ity of [place] [id number] [facility] [phone] [facility] [address] [place] 2020-07-19 2020-07-19 Outpatient R AD, [facility] [id number] Univers 00:00:00 00:00:00 CAROLINA head [facility] 2020-07-19 2020-07-19 Orders Doctor ALIX 1.2.840.114 [id number] Univers 00:00:00 00:00:00 Only Unassigned, RYAN [id number] ity of [place] [facility] 4.2.7.2.686 [place] [phone] [facility] [address] [place] 2020-07-11 2020-07-11 Office [facility] 1.2.840.114 [id number] Univers 10:03:42 11:07:10 Visit Carolina Valentín Mcnair [id number] ity of [place] 4.2.7.2.686 [facility] Professio [phone] Az dical nal 134 [facility] 2020-07-11 2020-07-11 Outpatient R AD, [facility] [id number] Univers 10:00:00 10:00:00 CAROLINA head [facility] 2020-06-22 2020-06-22 Outpatient R ADUM, [facility] [id number] Univers 09:45:00 09:45:00 CAROLINA head [facility] 2020-06-14 2020-06-14 Outpatient R ADUM, [facility] [id number] Univers 10:00:00 10:00:00 CAR[place] head [facility] 2020-06-08 2020-06-08 Outpatient R ADUM, [facility] [id number] Univers 10:00:00 10:00:00 CAROLINA head [facility] 2020-05-18 2020-05-18 Refill Adum, [facility] 1.2.840.114 [id number] Univers 00:00:00 00:00:00 Carolina Mcnair [id number] [id number] [phone] Az dical nal [address] [place] [address] 2020-05-11 2020-05-11 Office Adum, [facility] 1.2.840.114 [id number] Univers 13:01:45 14:22:11 Visit Carolina Mcnair [id number] ity of [place].2.[place] [phone] Az dical nal [address] [place] [address] 2020-05-11 2020-05-11 Outpatient R ADUM, [facility] [id number] Univers 13:00:00 13:00:00 CAROLINA head [facility] 2020-05-11 2020-05-11 Orders Doctor ALIX 1.2.840.114 [id number] Univers 00:00:00 00:00:00 Only Unassigned, RYAN [id number] ity of [place] [facility] 4.2.7.2.686 [place] [phone] [address] Results Test Description Test Time Test Comments Results Result Comments Source SURGICAL 2023-03-11 18:41:00 Test Item Value Reference Range Interpretation Comme nts SURGICAL RUN DATE: (test 03/11/23 KEISHA Thomas d - LAB PAGE 1 RUN TIME: 1840 Specimen Inquiry RUN USER: INTERFACE code = PATIENT: ANTIONE GARCIA DAVON LOC: [facility] U #: [id number] AGE/SX: 42/F ROOM: RE03/07/23[facility] DR: Rosa Mesa MD : 79 BED: DIS: STAT US: [place] [facility] [place]: SPEC #: [id number]:[facility]:[id number] RECD: 03/07/231312 STATUS: DB REBreana #: [id number] MCKENNA: 03/07/231144 [facility] DR: Rosa Mesa MD ENTERE SP TYPE: SURGICAL OTHR DR: ORDERED: 41491, 15896/2, ANATOMIC SPEC, SPECIMEN TRA K PROCEDURES: [id number] (03/07/23-1313) 40625 (03/11/23-1840) SPECIMEN TRACK (03/07/23) TISSUES: A. FALLOPIAN TUBE NOS - RIGHT FALLOPIAN TUBE B. LIGAMENT - RIGHT ROUND LIGAMENT C. FALLOPIAN TUBE N OS - LEFT FALOPIAN TUBE AND OVARY FINAL DIAGNOSIS A. Fallopian tube, right, salpingectomy:- Focal salpin gitis isthmica nodosa- Wall, lumen and fimbriated end identified B. Soft tissue, right ligament, lesi on, excisional biopsy- Fibrovascular adhesions- Negative for endometriosis- Round ligament muscle tissue identified C. Fallopian tube and ovary, left, salpingo-oophorectomy:Ovary:- Cystic endometriosisFallopia n tube- Endometriosis and focal salpingitis isthmica nodosa- Wall, lumen and fimbriated end identified- F ibrovascular adhesions Comment: Negative for malignancy. Suggest clinical correlation. GROSS DESCRIPTI ON A. Right fallopian tube. Received is a fallopian tube segment with fimbriated endmeasuring 2.6 cm in length and has a diameter of 1.1 cm. Cut section of fallopian tubewith entire bisected fimbriated e nd submitted as A1. B. Right round ligament. Received is a segment of fibrofatty tissue measuring 1.6 x 1 x0.6 cm. It is sectioned and submitted entirely as B1. C. Left ovary and fallopian tube. Received is a ovary with adhered fallopian tube thatweighs 10.2 g and measures 3.2 x 2.6 x 2 cm. The adhered fall opian tube without fimbriatedend measures 3 cm in length and has a diameter of 0.6 cm. Cut sections reveal Three cyst CONTINUED ON NEXT PAGE RUN DATE: 03/11/23 KEISHA LERMA PAGE 2 RUN TIME: 1840 Specimen Inquiry RUN USER: INTERFACE SPEC #: [id number]:[facility]:[id number] PATIENT: ANTIONE COOK #[id number] (Continued) GROSS DESCRIPTION (Continued ) measuring 0.4 - 1 cm. No papillary features are identified. The fallopian tube segmentis adhered to th e ovary by fibrous tissue. Sections of cyst and fallopian tube submitted asC1-C5. Technical tissue pr ocessing and slide preparation performed at [facility],[place] [address] , [place] [address] Unless gross only, the diagnosis is based upon microscopic examination.Immunohistochemi stry: This test was developed and its performance characteristicsdetermined by this laboratory. It has n ot been approved nor does it need approval by the USFDA. Appropriate positive and negative contro ls are reviewed and judged to be acceptable.This laboratory is certified under the Clinical Laborator y Improvement Amendments (CLIA-88)as qualified to perform high complexity clinical laboratory testing. MICROSCOPIC DESCRIPTION Microscopic examination is performed on all specimens and the findings a reincorporated into the final diagnosis. Please see diagnosis for findings. Signed SIGNATURE ON FILE [place] 03/11/23 1841 END OF REPORT [id number] 14:15:00 Test Item Value Reference Range Interpretation Comments CREATININE (test code = CREAT) 0.9 MG/DL 0.6-1.0 N URINALYSIS [id number] 14:08:00 Test Item Value Reference Range Interpretation Comments UA GLUCOSE DIPSTICK (test NEGATIVE mg/dL NEG code = DGLUU) UA BILIRUBIN DIPSTICK (test NEGATIVE mg/dL NEG code = BILU) UA KETONE DIPSTICK (test NEGATIVE mg/dL NEG code = KETU) UA SPECIFIC GRAVITY (test 1.015 SG 1.005-1.030 code = SGU) UA BLOOD DIPSTICK (test 3+ mg/DL NEG A code = LJ) UA PH DIPSTICK (test code = 6.0 pH UNITS 5.0-7.0 CHARMAINE) UA PROTEIN DIPSTICK (test NEGATIVE mg/dL NEG code = PROU) UA UROBILINIOGEN DIPSTICK 1.0 mg/dL <2.0 (test code = URO) UA NITRITE DIPSTICK (test POSITIVE SCREEN NEG A code = GARIMA) UA LEUKOCYTE ESTERASE NEGATIVE Leuk/mcL NEGATIVE DIPSTICK (test code = LEUU) Urine Specimen Type: Clean CatchUR HCG [id number] 14:08:00 Test Item Value Reference Range Interpretation Comments UR HCG QUAL (test code = HCGQLU) NEGATIVE NEGATIVE Urine Specimen Type: Clean CatchCBC W/AUTO [id number] 14:02:00 Test Item Value Reference Range Interpretation Comments WHITE BLOOD CELL (test code = 6.2 K/mm3 3.5-11.0 N WBC) RED BLOOD CELL (test code = 4.30 M/mm3 4.70-6.10 L RBC) HEMOGLOBIN (test code = HGB) 11.0 G/DL 10.4-14.9 N HEMATOCRIT (test code = HCT) 34.7 % 31.5-44.1 N MEAN CELL VOLUME (test code = 80.7 Fl 84.5-98.6 L MCV) MEAN CELL HGB (test code = MCH) 25.6 pg 27.0-34.2 L MEAN CELL HGB CONCETRATION 31.7 G/DL 31.5-34.0 N (test code = MCHC) RED CELL DISTRIBUTION WIDTH 16.5 SD 11.5-14.5 H (test code = RDW) PLATELET COUNT (test code = 366 K/mm3 150-450 N PLT) MEAN PLATELET VOLUME (test code 11.00 fL 7.0-10.5 H = MPV) NEUTROPHIL % (test code = NT%) 66.8 % 40-76 N IMMATURE GRANULOCYTE % (test 0.3 % 0.0-5.0 N code = IG%) LYMPHOCYTE % (test code = LY%) 22.6 % 20.5-51.1 N MONOCYTE % (test code = MO%) 6.1 % 1.7-9.3 N EOSINOPHIL % (test code = EO%) 3.1 % 0.0-6.0 N BASOPHIL % (test code = BA%) 1.1 % 0.0-2.0 N NUCLEATED RBC % (test code = 0.0 /100WBC% 0.0-1.0 N NRBC%) NEUTROPHIL # (test code = NT#) 4.1 K/mm3 1.8-7.6 N IMMATURE GRANULOCYTE # (test 0.02 x10 3/uL 0.00-0.03 N code = IG#) LYMPHOCYTE # (test code = LY#) 1.4 K/mm3 0.6-3.2 N MONOCYTE # (test code = MO#) 0.4 K/mm3 0.3-1.1 N EOSINOPHIL # (test code = EO#) 0.2 K/mm3 0.0-0.4 N BASOPHIL # (test code = BA#) 0.1 K/mm3 0.0-0.1 N NUCLEATED RBC # (test code = 0.0 K/mm3 0.0-0.1 N NRBC#) MANUAL DIFF REQUIRED (test code NO DIFF/SCN CRITERIA = MDIFF) BI US GUIDED CORE BREAST BIOPSY [id number] 19:26:07HISTORY: Left breast mass. COMPARISON: Ultrasound study of 08/04/2020. TECHNIQUE: Procedural details ar rachael discussed with the patient regardingultrasound-guided biopsy and involved risks. Patient appeared to understandeverything and agreed. FINDINGS: Using sterile precautions, under local anesthesia, 6 passes weremade using 14-gauge Bard biopsy gun and samples were obtained from ?leftbreast mass. Subsequently biopsy clip was deployed and single mammogramview was obtained to confirm its position. External finger pressure was applied over the biopsy site. Biopsy sampleswere given to the pc technician for further management. Patienttolerated the procedure well and experienced no apparent complications. CONCLUSIONS: ? Core biopsy samples obtained from left breast mass withoutany apparent immediatecomplications. [facility], Radiant Results Inft User - 08/25/2020 2:27 PM CDTHISTORY: Left breast mass.COMPARISON: Ultrasound study of 08/04/2020.TECHNIQUE: Procedural details are discussed with the patient reg ardingultrasound-guided biopsy and involved risks. Patient appeared to understandeverything and agreed.FINDINGS: Using sterile precautions, under local anesthesia, 6 passes weremade using 14-gauge Bardbiopsy gun and samples were obtained from leftbreast mass. Subsequently biopsy clip was deployed andsingle mammogramview was obtained to confirm its position.External finger pressure was applied over the biopsy site. Biopsy sampleswere given to the pc technician for further management. Patienttolerated the procedure well and experienced no apparent complications.CONCLUSIONS: Core biopsy samples obtained from left breast mass withoutany apparent immediate complications.[facility] [id number] 20:13:46HISTORY: ?Abnormal mammogram. Evaluate masses in the left breast. TECHNIQUE: Upper-outer quadrant ofthe left breast was evaluated inradial/antiradial/sagittal/coronal planes both by the technologist and byme. [...] is an intramammary lymph node withechotexture that blendswith surrounding fibrofatty tissue. CONCLUSIONS: 7 mm solid mass at 3:00 in left breast. Ultrasound-guidedbiopsy recommended. Biopsy procedure and clip placement were discussed withthe patient and she appeared to understand. ACR classification: Category II. [facility], Radiant Results Inft User - 08/04/20203:14 PM CDTHISTORY: Abnormal mammogram. Evaluate masses in the left breast.TECHNIQUE: Upper-outer quadrant of the left breast was evaluated inradial/antiradial/sagittal/coronal planes both by the technologist and byme. Female technologist was present in the room during all imagingevaluations.FINDINGS:Hypoechoic, slightly macrolobulated shaped 7 x 5 mm essentially avascular lesion confirmed at 3:00 approximately 3 cm lateral to the nipple.A second mass that is seen in the mammogram study could not be visualizedby ultrasound. It is possible that this is an intramammary lymph node withechotexture that blends with surrounding fibrofatty tissue.CONCLUSIONS: 7 mm solid mass at 3:00 in left breast. Ultrasound- guidedbiopsy recommended. Biopsy procedure and clip placement were discussed withthe patient and she appeared to understand.ACR classification: Category II. [facility] SCREENING MAMMOGRAM [id number] 20:42:39Examination:BI SCREENING MAMMOGRAM BILATERAL History:Patient is 39 year old and is seen for: ?Routine [...] baseline study, further evaluation by ultrasound requested. Recommendation:Ultrasound - LeftAnnual mammographic follow-up - Right BI-RADS Category: Left:0 - Incomplete: Needs Additional Imaging EvaluationRight: 2 - BenignOverall: 0 - Incomplete: Needs Additional [facility] [id number] 18:31:00 Test Item Value Reference Range Interpretation Comments POCT PREG (test code = 1605) Negative On board controls acceptable with C Yes Line (test code = 3574) POCT PREG LOT # (test code = 3578) POCT PREG TEST DATE (test code = 3576) [facility] [id number] 18:31:00 Test Item Value Reference Range Interpretation Comments POCT PREG (test code = 1605) Negative On board controls acceptable with C Yes Line (test code = 3574) POCT PREG LOT # (test code = 3575) POCT PREG TEST DATE (test code = 3576) [facility] URINALYSIS W/O SPECIFIC [id number] 18:14:00 Test Item Value Reference Range Interpretation [...] code = 3257) 1+ Negative - Negative [facility] URINALYSIS W/O SPECIFIC [id number] 18:14:00 Test Item Value Reference Range Interpretation [...] code = 3257) 1+ Negative - Negative [facility] Notes Date/Time Note Provider Source 2023-03-08 08:09:00-00:00 [id number] [place] [address] PATIENT NAME: ANTIONE COOK ADMIT DATE: 0 03/07/23 ACCOUNT NO: [id number] ROOM NO: AGE: 42 REPORT TYPE: OPERATIVE REPORT SEX: F ADMITTING PHYSICIAN: ATTENDING PHYSICIAN: Rosa Mesa MD OPERATION DATE: 03/07/2023 PREOPERATIVE DIAGNOSES: AUB -- A/O, dysmenorrhea , iron deficiency anemia. POSTOPERATIVE DIAGNOSES: AUB -- A/O, dysmenorrhe a, iron deficiency anemia and stage IV endometriosis and bilateral uterosacral ligaments, pelvic sidewalls, right round ligament, and left posterior cul-de- sac, and left ovary and tube. Bilateral hydrosalpinges. PROCEDURES PERFORMED: Hysteroscopy, endometrial ablation with NovaSure, laparoscopy, left salpingo-o ophorectomy, right salpingectomy, lysis of adhesions from the sigmoid that was ad hered to the left ovary and tube, which at least 20 minutes of the procedure. Endometriosis excision , fulguration, bilateral hydrosalpinges. SURGEON: Rosa Mesa MD COAL DUMPING EQUIPMENT OPERATOR: Woody [place]. ANESTHESIA: General. FINDINGS: Left tube and ovary were adhered to th e sigmoid and significantly swollen left tube, endometrioma seen on the ovar y, bilateral hydrosalpinges, endometriosis on the bilater al uterosacral ligaments and pelvic sidewalls, left posterior cul-de-sac, and the right distal round ligament. COMPLICATIONS: No complications. EBL: 50 mL SPECIMENS: Bilateral tubes, left ovary, right ro und ligament endometriosis. FLUIDS: 1000 LR. URINE OUTPUT: 100 mL APPROACH: Laparoscopic. COUNTS: Correct. PATIENT CONDITION: Stable. PATIENT NAME: ANTIONE COOK ACCOUNT #: [id number] Endometrial ablation settings, 4 cm cavity lengt h, 2.6 width, 57 andrew power, and 2 minutes of the ablation cycle with an exce llent ablation effect. INDICATIONS: The patient is a 42-year-old with s ignificant bleeding and iron deficiency anemia, referred from her primary care provider, has had significant dysmenorrhea as well, but her main complaint was bleeding and fatigue from anemia. Ultrasound was performed and no adnexal masses were noted. Endometrium was sampled and there was no atypia or m alignancy. Discussed all the different options with this patient, including medical and surgical options and she was consented for this procedure and brought to OR. DESCRIPTION OF PROCEDURE: Af ter informed consent was verified, 2 grams of Ancef were given. THE PATIENT HAS ALLERGIES, RASH TO P ENICILLIN, but tolerating her Ancef well. She was placed in supine fashion on operating table. General anesthesia was given. She was placed in dorsal l ithotomy position using Gautam stirrups. Arms were tucked by the side. SCDs wer e started. Positioning was checked. Abdomen prepped wit h ChloraPrep, and Betadine for vagina and perineum. She was draped in a sterile fashion. Timeout was done and procedure was started. Fole y was placed to drain the bladder. Speculum placed to expose the cervix. A nterior lip was grasped with Allis clamps. Uterus was sounded to 8 cm, cervic al length 4 cm. The ablation device NovaSure was taken primed, and inserted i nto the cavity and the fan deployed. Cavity width was 2.6 cm, which was ent ered into the machine and the generator. The cervical os were closed w ith the closure. Cavity integrity test was performed, which was passed easily. Ablation cycle uninterrupted for 2 minutes. The device was then deployed in the usu al fashion. Hysteroscopy was performed to visualize the c avity and rinse it up. Excellent ablation effect on the entire endometrial cavity. X-Scan Imaging c VCare was introduced into the uterus and fixed and placed for retraction and this are a was draped. A 1 cm infraumbilical incision was made and fasc ia was incised, tagged with 0 Vicryl sutures. Peritoneum entered sharp ly. Velez introduced, inside of entry was checked and was unremarkable. Two 5 ports in the left lower quadrantwere placed and suprapubically placed under direct vi carrie. After adequate insufflation, the patient was placed in T-sonali. No evidence of any tremor. There was a small omental adhesion in th e left upper quadrant, likely from her gastric sleeve surgery. No other adhesions from the omentum. The pelvic cavity was surveyed with findings as dictated ab ove. Significant adhesions of the left tube and ovary to the sigmoid noted, ur eter was not visible at the level of the pelvic brim and sidewall. Right tub e swollen. Both tubes have evidence of hydrosalpinges. Right ovary unremark able. No endometriosis seen. Pelvic sidewalls and distal uterosacral ligament at least the last 3 cm and clearly encased with endomet riosis and significantdisease in the posterior cul- de- sac, left side was also taken with endometr iosis in the sigmoid colon, slightly pulled up, partial obliteration proces s started on that side. Endometriosis on the attachment of the u terosacral to the uterus was also seen and then implants slightly left of the uterosacr al that mostly is significant and on this region. On the right round ligament, on the distal aspect, there was endometriosis, so plan was to take the adhes ions down and remove the left tube and ovary, after them from the s idewall and the right tube. The sigmoid was retracted with epiploicae and di ssected sharply and carefully keeping the wall of the sigmoid safe. LigaSure w as used to perform dissection PATIENT NAME: ANTIONE COOK ACCOUNT #: [place] [id number] with and without [TIME: 07:28]. On ce all the colon was taken out and the retroperitoneum had to be opened up on the sidew all away from the right [TIME: 07:36] ligament to the left paracolic gut ter and once this was done, I was able to separate the tub e away from the round ligament. Then, the posterior leaf of the broad ligament was dissected and ope jonn up, isolating the IP, visualizing the ureter and IP ligament was taken down with the help of the [employer]. The uteroovarian l igament and the tube were detached from the uterus. Specimen left in the anterior cul-de-sac. Over to the other side, tubal dissection was per formed in its entirety and distal part of the tube was removed through the suprapubic trocar and a small piece of the right proximal tube was left in the anterior cul-de-sac. Side round ligament endo was excised. It was asha sed where the round ligament exited at the level of the internal ring. This w as excised in its entirety. Attention was directed to the posterior aspect, here without excising the uterosacral ligament and detaching them from the uterus and the distal part of the uterus encased with itself. Extremely dif ficult to achieve this without detaching the uterus and possibly hyster ectomy. So at this point, it was best to fulgurate the endome triosis to the best of my ability and pain was an indication for this pat ient, despite absence of bleeding, then she will be counseled to come ba ck and have hysterectomy with endometriosis excision. So, endometriosis was a ll picked up with the tip of graspers and ablated with bipolar current. After thorough irrigation, suction at least 1 mL of sterile water was used to irrigate. There was excellent hemostasis and morro aned above the abdomen, endometriosis and dark material after fulguratio n. All trocars were removed. After this, I irrigated, fluid was suctioned out and a bag was placed through the umbilical port and the specimen was removed and through there, all the trocars were removed before the specimen was pulled out through the umbilicus. Trocar sites were hemostatic. After desufflatin g and flapping the fascia, fascia was closed with 0 Vicryl sutures tacked through edges and tied together and then all skin incisions closed wit h 4-0 Vicryl. VCare and Bhatt were removed. Instrument and sponge counts were correct. Her was debriefed on her procedure findings and she radha l see us back in a week. Dictated By: Rosa Mesa MD Date Dictated: 03/08/2023 08:09:38 Date Transcribed: 03/08/2023 11:39:05 LAITH/RONALD/DANIA Receipt ID: [id number] Authenticated and Edited by Rosa Mesa MD On 03/28/23 5:05:53 PM at 0507 PATIENT NAME: ANTIONE COOK ACCOUNT #: [place] [id number] 2023-03-07 12:33:00-00:00 [facility] ([facility]) Brief Op Note REPORT#:[id number] REPORT STATUS: Signed DATE:03/07/23 TIME:1233 PATIENT: ANTIONE COOK UNIT #: [id number] ROOM/BED: : 79 AGE: 42 SEX: F ATTEND: Sa robert Mesa MD ADM AUTHOR: Rosa Mesa MD * ALL edits or amendments must be made on the el ectronic/computer document * Op/Inv Proc Note - Brief Pre-procedure diagnosis: AUB-A/O, Dysmenorrhea, Iron def anemia Post-procedure diagnosis: sa me as pre procedure dx, Stage4 endo, kristen USL,pelvic sidewalls,rt round lig, Left post CDS Procedures performed: Hysteroscopy, Endometrial ab lation Novasure, Laparoscopy LSO, Rt salpingectomy, JULES sigmoid from left ovary and tube, endometriosis excision and fulgration, kristen hydrosalpinges Primary Surgeon: Bonita Liquid Chlorine Operator(s): Juany Angeles Anesthesia: general anesthesia Findings: left tube and ovary, sigmoid adhesions, endometrioma, kristen hydrosalpinges, endo kristen USL, side johnson, Left post CDS Complications: none Estimated blood loss in ml's: 50 Specimens removed/altered: kristen tubes, left ovary , rt round ligament endo Fluids: 1000 LR Urine output: 100 Approach: laparoscopic Wound class: clean Disposition: plan to D/C home Counts: Sponge count: correct Instrument count: correct Needle count: correct Electronically Signed by Rosa Mesa MD 03/07/23 at 1257 [facility] #: [id number] END OF REPORT
--- NOTE | 2023-07-23 15:16 | EDPHYS ---
Physician Documentation [facility] Name: Roseline Ram Age: 42 yrs Sex: Female : 1980 Arrival Date: 07/23/2023 Time: 14:11 Bed 6 Private MD: ED Physician Ulises Tian HPI: 07/23 14:43 This 42 yrs old Female presents to ER via Ambulatory with complaints of ms3 Constipation, Rectal Pain. 15:10 42-year-old female with past medical history of hypothyroidism, migraines presents for ms3 constipation that has been ongoing for 7 days. Patient states she has not had a bowel movement during this time. Patient states she took milk of magnesia without relief. Patient states she was at work this morning and able to have a bowel movement. Patient left work and use an enema and nothing came out. Patient states her rectum is now swollen with 6/10 pain. Patient denies alleviating factors.. Historical: - Allergies: 14:18 Soma; rs5 14:18 Cipro; rs5 14:18 tramadol; rs5 14:18 Ultram; rs5 - PMHx: 14:18 Hypothyroidism; Migraine; rs5 - PSHx: 14:18 section; gastric sleeve; stapendectomy; Tonsillectomy; rs5 14:20 Uterine ablation; Left ovary removal; rs5 - Immunization history:: Adult Immunizations up to date. - Social history:: Smoking status: Patient denies any tobacco usage or history of. ROS: 15:10 Constitutional: Negative for fever, and chills. Neck: Negative for injury, pain, and ms3 swelling, Cardiovascular: Negative for chest pain, and palpitations. Respiratory: Negative for shortness of breath, cough, wheezing, and pleuritic chest pain. 15:10 MS/Extremity: Negative for injury and deformity, Skin: Negative for injury, rash, and discoloration. 15:10 Abdomen/GI: Positive for constipation. 15:10 All other systems are negative. Exam: 15:10 Constitutional: This is a well developed, well nourished patient who is awake, alert, ms3 and in no acute distress. Head/Face: Normocephalic, atraumatic. Neck: Trachea midline, no cervical lymphadenopathy. Supple, full range of motion without nuchal rigidity, or vertebral point tenderness. No Meningismus. Chest/axilla: Normal chest wall appearance and motion. Nontender with no deformity. Cardiovascular: Regular rate and rhythm with a normal S1 and S2. No gallops, murmurs, or rubs. Normal PMI, no JVD. No pulse deficits. Respiratory: Lungs have equal breath sounds bilaterally, clear to auscultation and percussion. No rales, rhonchi or wheezes noted. No increased work of breathing, no retractions or nasal flaring. 15:10 Skin: Warm, dry with normal turgor. Normal color with no rashes, no lesions, and no evidence of cellulitis. MS/ Extremity: Pulses equal, no cyanosis. Neurovascular intact. Full, normal range of motion. 15:10 Abdomen/GI: Inspection: abdomen appears normal, Bowel sounds: normal, Palpation: abdomen is soft and non-tender, Rectal exam: rectal tone normal, Stool: brown, hemorrhoid(s), external, with inflammation, with pain, without bleeding, Anjelica. Vital Signs: 14:15 BP 134 / 109; Pulse 135; Resp 17; Temp 97.2; Pulse Ox 99% on R/A; Weight 68.95 kg; rs5 Height 5 ft. 3 in. ; Pain 6/10; 14:31 BP 137 / 97; Pulse 88; Resp 18; Pulse Ox 99% on R/A; Pain 9/10; ld1 14:15 Body Mass Index 26.93 (68.95 kg, 160.02 cm) rs5 14:15 Pain Scale: Adult rs5 14:31 Pain Scale: Adult ld1 MDM: 14:43 Patient medically screened. ms3 15:10 Differential diagnosis: hemorrhoids, fissure, Constipation. Data reviewed: vital signs, ms3 nurses notes, and as a result, I will discharge patient. Counseling: I had a detailed discussion with the patient and/or guardian regarding the historical points, exam findings, and any diagnostic results supporting the discharge/admit diagnosis, the need for outpatient follow up, to return to the emergency department if symptoms worsen or persist or if there are any questions or concerns that arise at home. Response to treatment: There is no appreciated change of the patient's symptoms at this time. Special discussion: I discussed with the patient/guardian in detail that at this point there is no indication for admission to the hospital. It is understood, however, that if the symptoms persist or worsen the patient needs to return immediately for re-evaluation. ED course: Discussed soapsuds enema with patient. Patient declines. Will give patient prescription for magnesium citrate, Anusol. Will have patient follow-up with Dr. Mathis in 2-3 days. patient understands agrees with plan. All questions were answered. Return precautions discussed include worsening symptoms, or any other concerns.. Administered Medications: 15:32 Not Given (Patient Refused): soap zohaib enema 1 application OK once ph Disposition Summary: 07/23/23 15:15 Discharge Ordered Location: Home ms3 Condition: Stable ms3 Diagnosis - External Hemorrhoids ms3 - Constipation, unspecified ms3 Followup: ms3 - With: Ori Mathis MD - When: 2 - 3 days - Reason: Recheck today's complaints Discharge Instructions: - Discharge Summary Sheet ms3 - Constipation, Adult ms3 - Hemorrhoids, [id number] ms3 Forms: - Medication Reconciliation Form ms3 - Thank You Letter ms3 - Antibiotic Education ms3 - Prescription Opioid Use ms3 - Patient Portal Instructions ms3 - Leadership Thank You Letter ms3 Prescriptions: - Anusol-HC 2.5 % Topical cream with perineal applicator - apply 1 application by RECTAL route 2 to 3 times per day as needed for itching; ms3 30 gram; Refills: 0, Product Selection Permitted - magnesium citrate Oral solution - take 296 milliliter by ORAL route daily as needed for constipation; 592 ms3 milliliter; Refills: 0, Product Selection Permitted - Anusol-HC 25 mg Rectal Suppository - insert 1 suppository by RECTAL route every 12 hours As needed; 20 suppository; ms3 Refills: 0, Product Selection Permitted Signatures: Kristen Schneider, RN RN Ulises Gutierrez DO DO ms3 Emil Noonan RN RN rs5
--- NOTE | 2023-07-23 15:16 | ER ---
Nurse's Notes [facility] Name: Roseline Ram Age: 42 yrs Sex: Female : 1980 Arrival Date: 07/23/2023 Time: 14:11 Bed 6 Private MD: Diagnosis: External Hemorrhoids;Constipation, unspecified Presentation: 07/23 14:15 Chief complaint: Patient states: reports constipation X 1 week, nausea. Pt reports rs5 using an enema with no relief, pt states "I think I ruptured my rectum". Coronavirus screen: At this time, the client does not indicate any symptoms associated with coronavirus-19. Ebola Screen: Patient denies exposure to infectious person. Initial Sepsis Screen: Does the patient meet any 2 criteria?. 14:15 Method Of Arrival: Ambulatory rs5 14:20 Acuity: RAVEN 2 rs5 15:34 Initial Sepsis Screen: Does the patient have a suspected source of infection? No. ph Patient's initial sepsis screen is negative. Initial Sepsis Screen: Does the patient meet any 2 criteria? No. Patient's initial sepsis screen is negative. Does the patient have a suspected source of infection?. Risk Assessment: Do you want to hurt yourself or someone else? Patient reports no desire to harm self or others. Onset of symptoms was July 23, 2023. Historical: - Allergies: 14:18 Soma; rs5 14:18 Cipro; rs5 14:18 tramadol; rs5 14:18 Ultram; rs5 - PMHx: 14:18 Hypothyroidism; Migraine; rs5 - PSHx: 14:18 section; gastric sleeve; stapendectomy; Tonsillectomy; rs5 14:20 Uterine ablation; Left ovary removal; rs5 - Immunization history:: Adult Immunizations up to date. - Social history:: Smoking status: Patient denies any tobacco usage or history of. Screenin:31 [facility] ED Fall Risk Assessment (Adult) History of falling in the last 3 months, ld1 including since admission No falls in past 3 months (0 pts). Abuse screen: Denies threats or abuse. Denies injuries from another. Nutritional screening: No deficits noted. Tuberculosis screening: No symptoms or risk factors identified. Assessment: 14:31 General: Appears in no apparent distress. uncomfortable, Behavior is cooperative, ld1 appropriate for age, anxious. Pain: Complains of pain in gluteal cleft and anus Pain does not radiate. Pain currently is 9 out of 10 on a pain scale. Quality of pain is described as throbbing. Neuro: Level of Consciousness is awake, alert, obeys commands, Oriented to person, place, time, situation. Cardiovascular: Capillary refill < 3 seconds Patient's skin is warm and dry. Rhythm is sinus rhythm. Respiratory: Airway is patent Respiratory effort is even, unlabored. GI: Abdomen is flat, non-distended, Bowel sounds present X 4 quads. Abd is soft Abdomen is tender to palpation. GI: Reports constipation. : No signs and/or symptoms were reported regarding the genitourinary system. EENT: No signs and/or symptoms were reported regarding the EENT system. Derm: No signs and/or symptoms reported regarding the dermatologic system. Musculoskeletal: No signs and/or symptoms reported regarding the musculoskeletal system. 15:33 Reassessment: Patient appears in no apparent distress at this time. Patient and/or ph family updated on plan of care and expected duration. Pain level reassessed. Patient is alert, oriented x 3, equal unlabored respirations, skin warm/dry/pink. Pt declines enema at this time, states that she would rather go home and drink magnesium citrate. Vital Signs: 14:15 BP 134 / 109; Pulse 135; Resp 17; Temp 97.2; Pulse Ox 99% on R/A; Weight 68.95 kg; rs5 Height 5 ft. 3 in. ; Pain 6/10; 14:31 BP 137 / 97; Pulse 88; Resp 18; Pulse Ox 99% on R/A; Pain 9/10; ld1 14:15 Body Mass Index 26.93 (68.95 kg, 160.02 cm) rs5 14:15 Pain Scale: Adult rs5 14:31 Pain Scale: Adult ld1 ED Course: 14:14 Patient arrived in ED. im 14:21 Ulises Tian DO is Attending Physician. ms3 14:22 Triage completed. rs5 14:31 Patient has correct armband on for positive identification. Placed in gown. Bed in low ld1 position. Call light in reach. Side rails up X2. monitoring tech on. Pulse ox on. NIBP on. Door closed. Noise minimized. Warm blanket given. 14:31 No provider procedures requiring assistance completed. Inserted saline lock: 20 gauge ld1 in right antecubital area, using aseptic technique. Blood collected. 14:51 Kristen Schneider, RN is Primary Nurse. ph 15:15 Ori Mathis MD is Referral Physician. ms3 15:34 Arm band placed on. ph 15:35 IV discontinued, intact, bleeding controlled, No redness/swelling at site. Pressure ph dressing applied. Administered Medications: 15:32 Not Given (Patient Refused): soap zohaib enema 1 application TX once ph Medication: 14:31 VIS not applicable for this client. ld1 Outcome: 15:15 Discharge ordered by . ms3 15:34 Discharged to home ambulatory. ph 15:34 Condition: good 15:34 Discharge instructions given to patient, Instructed on discharge instructions, follow up and referral plans. medication usage, Demonstrated understanding of instructions, follow-up care, medications, Prescriptions given X 3. 15:35 Patient left the ED. ph Signatures: Kristen Schneider RN RN ph Ulises Tian DO DO ms3 Kelly Tian RN RN ld1 Emil Noonan RN RN rs5 Fabienne Woodard Corrections: (The following items were deleted from the chart) 14:22 14:15 Chief complaint: Patient states: reports constipation X 1 week, nausea rs5 rs5
[2023-07-23 16:09] VITALS: TEMP 97.2; O2SAT 99
[2023-07-23 16:10] VITALS: BP 137/97
== END 2023-07-23 15:35 | disposition home or self-care (01) ==
LOC: ER 14:11
DX: K64.4 Residual hemorrhoidal skin tags (principal); K59.00 Constipation, unspecified; Z88.1 Allergy status to other antibiotic agents; Z88.5 Allergy status to narcotic agent
CPT/HCPCS: 99284

== ENCOUNTER → 2023-08-19 | Day surgery (SDC) | payer OTHER ==
[~2023-08-19] MED LIST: SOD FERRIC GLUC COMPLX/SUCROSE 125 MG in NA CHLORIDE 0.9% 100 ML IV ONE
[2023-08-19 07:59] VITALS: O2SAT 100; BMI 26.5
[2023-08-19 09:35] VITALS: BP 138/89; TEMP 96.9
== END ==
LOC: DS 07:26
PROVIDERS: ATTEND Obstetrics & Gynecology
DX: D50.9 Iron deficiency anemia, unspecified (principal)
CPT/HCPCS: 96365; J2916

== ENCOUNTER 2023-09-23 09:20 | Emergency (ER) | payer OTHER ==
--- OUTSIDE RECORDS SUMMARY | 2023-09-23 09:25 | XMS REPORT | Continuity of Care Document ---
:1980 Author Organization [facility] t Address [address] [place] [address] Care Team Providers Name Role Phone YadielJocetamiko [place] Primary Care Physician John Mock Attending Clinician Rosa [place] Attending Clinician Unavailable [email or web address] Attending Clinician Unavailable DR SALBADOR CONDE Attending Clinician Unavailable CAROLINA LEONARD Attending Clinician Unavailable Nurse, [facility] Attending Clinician Unavailable Carolina Leonard MD Attending Clinician Doctor Unassigned, [place] Attending Clinician Unavailable Ney Zaidi DO Attending Clinician Angela Venegas Attending Clinician Rosa [place] Admitting Clinician Unavailable [email or web address] Admitting Clinician Unavailable DR SALBADOR CONDE Admitting Clinician Unavailable KNOW, DOES_NOT Admitting Clinician Unavailable Payers Payer Name Policy Type Policy Number Effective Date Expiration Date S marysol [employer]ET[employer] - CHOICE [id number] 2020 00:00:00 (POS II) [id number] 1959 00:00:00 [employer] CHOICE POS [id number] 2020 00:00:00 II [employer] [place] - [id number] 2018 00:00:00 OUT OF STATE Problems Condition Condition Condition Status Onset Resolution Last Treating Co mments Source Name Details Category Date Date Treatment Clinician Date Morbid Morbid Disease Active Univers obesity obesity 6-10 [place] of [place] mass index 00 Me dical of of Branch 40.0-49.9 40.0-49.9 E66.01 / E66.01 / Diagnosis Active 2020-01-28 Memoria G47.33 / G47.33 / -16 15:19:00 l E78.00 E78.00 00:00: [place] Active 00 12/17/2019 [facility] Cervical Cervical Disease Active Unive rs high risk high risk 5-15 ity of human human 00:00: [place] papillomav papillomav 00 Me dical irus (HPV) irus (HPV) Br anch DNA test DNA test positive positive Obesity Obesity Disease Active Univers (BMI (BMI 5-03 ity of 30-39.9) 30-39.9) 00:00: [place] 00 Medical Branch Menorrhagi Menorrhagi Disease Active Overview : Univers a with a with 5-03 Formattin ity of regular regular 00:00: g of this [place] cycle cycle 00 note Medical might be Branch different from the original. 04/03/19 - Tranexami c Acid started. Dysmenorrh Dysmenorrh Disease Active Overview : Univers ea ea 5-03 Formattin ity of 00:00: g of this note Medical might be Branch different from the original. 04/03/19 - Tranexami c Acid started. Acquired Acquired Disease Active Unive rs hypothyroi hypothyroi 5-03 it y of dism dism 00:00: [place] 00 Medical Branch Chlamydia Chlamydia Disease Active Overview: Univers trachomati trachomati -19 02/12/19 - ity of s s 00:00: s/p [place] infection infection 00 Azithromy M edical of lower of lower ayse Branch genitourin genitourin brigida sites brigida sites Acute Acute Disease Active Overview: Univer s pelvic pelvic 02-17 Formattin ity of inflammato inflammato 00:00: g of this [place] ry disease ry disease 00 note Me dical (PID) (PID) might be Branch different from the original. 02/12/19 - s/p Rocephin, Azithromy ayse and Doxycylin e Trichomona Trichomona Disease Active Overview : Univers s s 02-1702/12/19 - ity of vaginitis vaginitis 00:00[place] Flagyl Medical Branch History of History of Disease Active Overview : Univers abnormal abnormal 02-17 Formattin ity of cervical cervical 00:00: g of this [place] as Papanicola Papanicola 00 note Me dical ou smear ou smear might be Bran ch different from the original. 04/04/19 - pap smear normal. 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 Hypothyroi Hypothyro Problem Active 2023-09-19 Memoria dism idism 11:03:26 l (disorder) (disorder) [place] Active Problem 09/19/2023 Medical [facility] Liver Liver Problem Active 2023-09-19 Memor ia function function 11:03:26 l test test Evert increased increased Active Problem 09/19/2023 [facility] Migraine Migraine Problem Active 2023-09-19 Memoria (disorder) (disorder) 11:03:26 l Active [place] Problem 09/19/2023 [facility] Morbid Morbid Problem Active 2023-09-19 [facility] obesity obesity 11:03:26 l (disorder) (disorder) [place] Active Problem 09/19/2023 Medical [facility] Obstructiv Obstructi Problem Active 2023-09-19 Memoria e sleep ve sleep 11:03:26 l apnea apnea [place] syndrome syndrome (disorder) (disorder) Active Problem 09/19/2023 [facility] Pain in Pain in Problem Active 2023-09-19 [place] thoracic thoracic 11:03:26 l spine spine Evert (finding) (finding) Active Problem 09/19/2023 [facility] [place] Allergies, Adverse Reactions, Alerts Allergy Allergy Status Severity Reaction(s) Onset Inactive Treating Comm ents Source Name Type Date Date Clinician carisopr DA Active SV RASH [facility] [place] 00:00: d [facility] ciproflo DA Active SV JOINT PAIN [facility] xacin 4- [place] 00:00: d [facility] tramadol DA Active SV RASH [facility] 4- [place] 00:00: d 00 [facility] CIPROFLO DRUG Active Other-Cmnt Univ ers XACIN INGREDI - ity of 00:00: [place] 00 [facility] CARISOPR DRUG Active Rash Univers ODOL INGREDI 04-26 ity of 00:00: [place] 00 [facility] TRAMADOL DRUG Active Rash Univers HCL INGREDI 04-26 ity of 00:00: [place] 00 [facility] Ciproflo Propensi Active Other - See Joint U nivers xacin ty to comments 04-26 pain ity of adverse 00:00: [place] reaction 00 [facility] Carisopr Propensi Active Rash Univer s odol ty to 5-26 ity of adverse 00:00: [place] reaction 00 [facility] Tramadol Propensi Active Rash Univer s Hcl ty to 5-26 ity of adverse 00:00: [place] reaction 00 [facility] SOMA DA Active U 2007- [facility] [place] 00:00: d 00 [facility] ULTRAM DA Active U 2007-0 [facility] [place] 00:00: d 00 [facility] carisopr DA Active U 0 [facility] odol 06-21 [place] 00:00: d 00 [facility] ciproflo DA Active U 2007-0 [facility] xacin 06-21 [place] 00:00: d 00 [facility] tramadol DA Active U 2007-0 [facility] [place] 00:00: d 00 [facility] CIPRO DA Active U 2007-0 [facility] 06-21 [place] 00:00: d 00 [facility] No Known DA Active U 2007-0 [facility] Contrast 06-21 [place] Allergie 00:00: d s 00 [facility] No Known DA Active U 2007-0 [facility] Food 06-21 [place] Allergie 00:00: d s 00 [facility] No Known DA Active U 2008-0 [facility] Other 7-21 [place] Allergie 00:00: d s 00 [facility] Ultram DA Active Unknown Hives [facility] Soma DA Active Unknown Rash [facility] Cipro DA Active Unknown joint pain [facility] traMADol traMADol Active Memori a l [place] Cipro Cipro Active Memoria l Evert Soma Soma Active Memoria l [place] Social History Social Habit Start Date Stop Date Quantity Comments Source [facility] 2021-02-12 2021-03-14 Not sure [facility] SARS-CoV-2 (event) 00:00:00 14:01:00 [facility] Alcohol intake 2020-07-11 2020-07-11 0 /d University of 00:00:00 00:00:00 [facility] Social History 2019-12-10 2019-12-10 [facility] 16:49:14 16:49:14 History of Social 2019-06-11 2019-06-11 Univers ity of function 00:00:00 00:00:00 [facility] Tobacco use and 2019-02-17 2019-02-17 Smokeless Universit y of exposure 00:00:00 00:00:00 tobacco non-user [facility] [facility] Sex Ass[birth year] At [birth year] Universit y of 00:00:00 00:00:00 [facility] Smoking Status Start Date Stop Date Source Tobacco smoking status [facility] Medications Ordered Filled Start Stop Current Ordering Indication Dosage Frequency Signature Comments Components Source Medication Medication Date Date Medication? Clinician (SIG) Name Name rihayleyiptan 2022-12 Yes 10 mg = 1 M emoria 10 mg oral 0-16 tab, PO, l tablet 15:43: BID, PRN [place] 00 migraine, X 30 day, # 9 tab, 1 Refill(s), Pharmacy: [facility] #[id number], 162.56, cm, 09/16/23 10:16:00 CDT, Height, 64.773, kg, 09/16/23 10:16:00 CDT, Weight ondansetron 2022-12 Yes 4 mg = 1 Me moria 4 mg oral 0-16 tab, PO, l tablet 15:43: BID, PRN [place] 00 Nausea, X 15 day, # 30 tab, 1 Refill(s), Pharmacy: [facility] #[id number], 162.56, cm, 09/16/23 10:16:00 CDT, Height, 64.773, kg, 09/16/23 10:16:00 CDT, Weight Topamax 25 2022-12 Yes 25 mg = 1 Me moria mg oral 0-16 tab, PO, l tablet 15:42: BID, # 60 Don[place] n 00 tab, 3 Refill(s), Pharmacy: [facility] #[id number], 162.56, cm, 09/16/23 10:16:00 CDT, Height, 64.773, kg, 09/16/23 10:16:00 CDT, Weight estradiol 2022-12 Yes 1 patch, Seth xiomara 0.1 mg/24 0-16 Transderma l hours twice 15:13: l, 0 [place] weekly 00 Refill(s) transdermal film, extended release hydromorpho 2022-12 Yes = 1 tab, Me moria ne 4 mg 0-16 PO, Daily, l oral tablet 15:13: 0 [place] 00 Refill(s) omeprazole 2022-12 Yes = 1 tab, Mem oria 20 mg oral 0-16 PO, Daily, l delayed 15:13: 0 E[place] release 00 Refill(s) capsule levothyroxi 2022-12 Yes = 1 tab, Me moria ne 125 mcg 0-16 PO, Daily, l (0.125 mg) 15:13: 0 Evert oral 00 Refill(s) capsule cefTRIAXone 2020- No [id number] 250mg Univers (ROCEPHIN) 02-14 ity of injection 17:45: 16:36 [place] 250 mg 00 :00 Medical Branch cefTRIAXone 2020- No [id number] 250mg 250 mg, Univers (ROCEPHIN) 02-14 Intramuscu it y of injection 17:45: 16:36 lar, ONCE, [place] 250 mg 00 :00 1 dose, Medical Tue Branch 02/14/21 at 1245, Routine
Reason for Anti-Infec tive: Documented Infection< br>Documen chris Infection Site: Blood
D uration of Therapy: Other (see Comments) cefTRIAXone 2020- No [id number] 250mg Univers (ROCEPHIN) 02-14 ity of injection 17:45: 16:36 [place] 250 mg 00 :00 Medical Branch cefTRIAXone 2020- No [id number] 250mg 250 mg, Univers (ROCEPHIN) 02-14 Intramuscu [...] B-12 3-16 mcg by ity of (VITAMIN 11:04: mouth [place] B-12) 1,000 11 daily. Medica l mcg tablet Branch doxycycline Yes [id number] 100mg Take 1 Univers hyclate 100 3-16 tablet by ity of mg tablet 00:00: mouth 2 [place] 00 (two) Medical times Branch daily. metroNIDAZO 2020-0 Yes [id number] 500mg Take 1 Univers LE 500 mg 3-16 tablet by ity o f tablet 00:00: mouth [place] 00 every 12 Medical (twelve) Branch hours. doxycycline 2020-0 Yes [id number] 100mg Take 1 Univers hyclate 100 3-16 tablet by ity of mg tablet 00:00: mouth 2 [place] 00 (two) Medical times Branch daily. metroNIDAZO 2020-0 Yes [id number] 500mg Take 1 Univers LE 500 mg 3-16 tablet by ity o f tablet 00:00: mouth [place] 00 every 12 Medical (twelve) Branch hours. doxycycline 2020-0 Yes [id number] 100mg Take 1 Univers hyclate 100 3-16 tablet by ity of mg tablet 00:00: mouth 2 [place] 00 (two) Medical times Branch daily. metroNIDAZO 2020-0 Yes [id number] 500mg Take 1 Univers LE 500 mg 3-16 tablet by ity o f tablet 00:00: mouth [place] 00 every 12 Medical (twelve) Branch hours. doxycycline 2020-0 Yes [id number] 100mg Take 1 Univers hyclate 100 3-16 tablet by ity of mg tablet 00:00: mouth 2 [place] 00 (two) Medical times Branch daily. metroNIDAZO 2020-0 Yes [id number] 500mg Take 1 Univers LE 500 mg 3-16 tablet by ity o f tablet 00:00: mouth [place] 00 every 12 Medical (twelve) Branch hours. doxycycline 2020-0 Yes [id number] 100mg Take 1 Univers hyclate 100 3-16 tablet by ity of mg tablet 00:00: mouth 2 00 (two) Medical times Branch daily. metroNIDAZO 1-0 Yes [id number] 500mg Take 1 Univers LE 500 mg 3-16 tablet by ity o f tablet 00:00: mouth [place] 00 every 12 Medical (twelve) Branch hours. doxycycline 2021-0 Yes [id number] 100mg Take 1 Univers hyclate 100 3-16 tablet by ity of mg tablet 00:00: mouth 2 00 (two) Medical times Branch daily. metroNIDAZO 2020-0 Yes [id number] 500mg Take 1 Univers LE 500 mg 3-16 tablet by ity o f tablet 00:00: mouth [place] 00 every 12 Medical (twelve) Branch hours. doxycycline 2020-0 Yes [id number] 100mg Take 1 Univers hyclate 100 3-16 tablet by ity of mg tablet 00:00: mouth 2 (two) Medical times Branch daily. metroNIDAZO 2020-0 Yes [id number] 500mg Take 1 Univers LE 500 mg 3-16 tablet by ity o f tablet 00:00: mouth [place] 00 every 12 Medical (twelve) Branch hours. doxycycline 2020-0 Yes [id number] 100mg Take 1 Univers hyclate 100 3-16 tablet by ity of mg tablet 00:00: mouth (two) Medical times Branch daily. metroNIDAZO 2020-0 Yes [id number] 500mg Take 1 Univers LE 500 mg 3-16 tablet by ity o f tablet 00:00: mouth [place] 00 every 12 Medical (twelve) Branch hours. tranexamic 2020-0 Yes [id number] 1300mg Take 2 Univers acid 650 mg 6-17 tablets by it y of tablet 00:00: mouth 3 (three) Medical times Branch daily. tranexamic 2020-0 Yes [id number] 1300mg Take 2 Univers acid 650 mg 6-17 tablets by it y of tablet 00:00: mouth 3 (three) Medical times Branch daily. tranexamic 2020-0 Yes [id number] 1300mg Take 2 Univers acid 650 mg 6-17 tablets by it y of tablet 00:00: mouth 3 (three) Medical times Branch daily. tranexamic 2020-0 Yes [id number] 1300mg Take 2 Univers acid 650 mg 6-17 tablets by it y of tablet 00:00: mouth (three) Medical times Branch daily. tranexamic 2020-0 Yes [id number] 1300mg Take 2 Univers acid 650 mg 6-17 tablets by it y of tablet 00:00: mouth (three) Medical times Branch daily. tranexamic 2020-0 Yes [id number] 1300mg Take 2 Univers acid 650 mg 6-17 tablets by it y of tablet 00:00: mouth (three) Medical times Branch daily. tranexamic 2020-0 Yes [id number] 1300mg Take 2 Univers acid 650 mg 6-17 tablets by it y of tablet 00:00: mouth (three) Medical times Branch daily. tranexamic 2020-0 Yes [id number] 1300mg Take 2 Univers acid 650 mg 6-17 tablets by it y of tablet 00:00: mouth (three) Medical times Branch daily. tranexamic 2020-0 Yes [id number] 1300mg Take 2 Univers acid 650 mg 6-17 tablets by it y of tablet 00:00: mouth (three) Medical times Branch daily. tranexamic 2020-0 Yes [id number] 1300mg Take 2 Univers acid 650 mg 6-17 tablets by it y of tablet 00:00: mouth (three) Medical times Branch daily. tranexamic 2020-0 Yes [id number] 1300mg Take 2 Univers acid 650 mg 6-17 tablets by it y of tablet 00:00: mouth (three) Medical times Branch daily. tranexamic 2020-0 Yes [id number] 1300mg Take 2 Univers acid 650 mg 6-17 tablets by it y of tablet 00:00: mouth (three) Medical times Branch daily. tranexamic 2020-0 Yes [id number] 1300mg Take 2 Univers acid 650 mg 6-17 tablets by it y of tablet 00:00: mouth (three) Medical times Branch daily. tranexamic 2020-0 Yes [id number] 1300mg Take 2 Univers acid 650 mg 6-17 tablets by it y of tablet 00:00: mouth (three) Medical times Branch daily. tranexamic 2020-0 Yes [id number] 1300mg Take 2 Univers acid 650 mg 6-17 tablets by it y of tablet 00:00: mouth 3 [place] 00 (three) Medical times Branch daily. tranexamic 2020-0 Yes [id number] 1300mg Take 2 Univers acid 650 mg 6-17 tablets by it y of tablet 00:00: mouth 3 (three) Medical times Branch daily. tranexamic 2020-0 Yes [id number] 1300mg Take 2 Univers acid 650 mg 6-17 tablets by it y of tablet 00:00: mouth 3 (three) Medical times Branch daily. tranexamic 2020-0 Yes [id number] 1300mg Take 2 Univers acid 650 mg 6-17 tablets by it y of tablet 00:00: mouth 3 (three) Medical times Branch daily. tranexamic 2020-0 Yes [id number] 1300mg Take 2 Univers acid 650 mg 6-17 tablets by it y of tablet 00:00: mouth 3 (three) Medical times Branch daily. cefTRIAXone 2019- 2020- No [id number] 250mg Univers (ROCEPHIN) 05-11 ity of injection 19:46: 19:02 [place] 250 mg 00 :00 [facility] Branch cefTRIAXone 2019- 2020- No [id number] 250mg 250 mg, Univers (ROCEPHIN) 05-11 Intramuscu it y of injection 19:46: 19:02 lar, ONCE, [place] 250 mg 00 :00 1 dose, [facility] 05/11/20 at 1500, Routine
Reason for Anti-Infec tive: Empiric Therapy for Suspected Infection< br>Empiric Therapy Site: Pelvic
Duration of therapy: 7 days cefTRIAXone 2019- 2020- No [id number] 250mg Univers (ROCEPHIN) 05-11 ity of injection 19:46: 19:02 [place] 250 mg 00 :00 [facility] Branch cefTRIAXone 2019-0 2020- No [id number] 250mg 250 mg, Univers (ROCEPHIN) 05-11 Intramuscu it y of injection 19:46: 19:02 lar, ONCE, [place] 250 mg 00 :00 1 dose, [facility] Branch 05/11/20 at 1500, Routine
Reason for [...] l mcg tablet Branch doxycycline 2020-0 Yes [id number] 100mg Take 1 Univers hyclate 100 6-10 tablet by ity of mg tablet 00:00: mouth 2 [place] 00 (two) Medical times Branch daily. metroNIDAZO 2020-0 Yes [id number] 500mg Take 1 Univers LE 500 mg 6-10 tablet by ity o f tablet 00:00: mouth [place] 00 every 12 Medical (twelve) Branch hours. doxycycline 2020-0 Yes [id number] 100mg Take 1 Univers hyclate 100 6-10 tablet by ity of mg tablet 00:00: mouth 2 [place] 00 (two) Medical times Branch daily. metroNIDAZO 2020-0 Yes [id number] 500mg Take 1 Univers LE 500 mg 6-10 tablet by ity o f tablet 00:00: mouth [place] 00 every 12 Medical (twelve) Branch hours. doxycycline 2020-0 Yes [id number] 100mg Take 1 Univers hyclate 100 6-10 tablet by ity of mg tablet 00:00: mouth 2 [place] 00 (two) Medical times Branch daily. metroNIDAZO 2020-0 Yes [id number] 500mg Take 1 Univers LE 500 mg 6-10 tablet by ity o f tablet 00:00: mouth [place] 00 every 12 Medical (twelve) Branch hours. doxycycline 2020-0 2020- No [id number] 100mg Take 1 Univers hyclate 100 6-10 08-10 tablet by it y of mg tablet 00:00: 00:00 mouth 2 [place] :00 (two) Medical times Branch daily. metroNIDAZO 2020-0 2020- No [id number] 500mg Take 1 Univers LE 500 mg 6-10 08-10 tablet by ity of tablet 00:00: 00:00 mouth [place] 00 :00 every 12 Medical (twelve) Branch hours. doxycycline 2020-0 2020- No [id number] 100mg Take 1 Univers hyclate 100 6-10 08-10 tablet by it y of mg tablet 00:00: 00:00 mouth 2 [place] :00 (two) Medical times Branch daily. metroNIDAZO 2020-0 2020- No [id number] 500mg Take 1 Univers LE 500 mg 6-10 08-10 tablet by ity of tablet 00:00: 00:00 mouth [place] 00 :00 every 12 Medical (twelve) Branch hours. gabapentin 2020-0 Yes Univers 300 mg 5-27 ity of capsule 00:00: [place] 00 Medical Branch gabapentin 2020-0 Yes Univers 300 mg 5-27 ity of capsule 00:00: [place] [address] Medical Branch gabapentin 2020-0 Yes Univers 300 mg 5-27 ity of capsule 00:00: [place] [address] Medical Branch gabapentin 2020-0 Yes Univers 300 mg 5-27 ity of capsule 00:00: [place] [address] Medical Branch gabapentin 2020-0 Yes Univers 300 mg 5-27 ity of capsule 00:00: [place] [address] Medical Branch gabapentin 2020-0 Yes Univers 300 mg 5-27 ity of capsule 00:00: [place] [address] Medical Branch gabapentin 2020-0 Yes Univers 300 mg 5-27 ity of capsule 00:00: [place] [address] Medical Branch gabapentin 2020-0 Yes Univers 300 mg 5-27 ity of capsule 00:00: [place] [address] Medical Branch gabapentin 2020-0 Yes Univers 300 mg 5-27 ity of capsule 00:00: [place] [address] Medical Branch gabapentin 2020-0 Yes Univers 300 mg 5-27 ity of capsule 00:00: [place] [address] Medical Branch gabapentin 2020-0 Yes Univers 300 mg 5-27 ity of capsule 00:00: [place] [address] Medical Branch gabapentin 2020-0 Yes Univers 300 mg 5-27 ity of capsule 00:00: [place] [address] Medical Branch gabapentin 2020-0 Yes Univers 300 mg 5-27 ity of capsule 00:00: [place] [address] Medical Branch gabapentin 2020-0 Yes Univers 300 mg 5-27 ity of capsule 00:00: [place] [address] Medical Branch gabapentin 2020-0 Yes Univers 300 mg 5-27 ity of capsule 00:00: [place] [address] Medical Branch gabapentin 2020-0 Yes Univers 300 mg 5-27 ity of capsule 00:00: [place] [address] Medical Branch gabapentin 2020-0 Yes Univers 300 mg 5-27 ity of capsule 00:00: [place] [address] Medical Branch gabapentin 2020-0 Yes Univers 300 mg 5-27 ity of capsule 00:00: [place] [address] Medical Branch gabapentin 2020-0 Yes Univers 300 mg 5-27 ity of capsule 00:00: [place] [address] Medical Branch gabapentin 2020-0 Yes Univers 300 mg 5-27 ity of capsule 00:00: [place] 00 Medical Branch gabapentin 2020-0 Yes Univers 300 mg 5-27 ity of capsule 00:00: [place] 00 Medical Branch levothyroxi 2020-0 Yes 75 Memori a ne 75 mcg 1-09 microgram l (0.075 mg) 16:49: = 1 tab, Her [facility] oral tablet 00 PO, Daily, 0 Refill(s) levothyroxi 2020-0 Yes 75 Memori a ne 75 mcg 1-09 microgram l (0.075 mg) 16:49: = 1 tab, Her [place] oral tablet 00 PO, Daily, 0 Refill(s) levothyroxi 2019-0 Yes 75ug Take 1 Univ [...] every Medical morning. Branch Tranexamic 2019-0 Yes [id number] 1300mg Take 2 Univers Acid 650 mg 5-03 tablets by it y of tablet 00:00: mouth 3 [place] 00 (three) Medical times Branch daily. levothyroxi 2019-0 Yes 75ug Take 1 Univ ers ne 75 mcg 5-03 tablet by ity o f tablet 00:00: mouth [place] 00 every Medical morning. Branch Tranexamic 2019-0 Yes [id number] 1300mg Take 2 Univers Acid 650 mg 5-03 tablets by it y of tablet 00:00: mouth 3 [place] 00 (three) Medical times Branch daily. levothyroxi 2019-0 Yes 75ug Take 1 Univ ers ne 75 mcg 5-03 tablet by ity o f tablet 00:00: mouth [place] 00 every Medical morning. Branch Tranexamic 2019-0 Yes [id number] 1300mg Take 2 Univers Acid 650 mg 5-03 tablets by it y of tablet 00:00: mouth 3 [place] 00 (three) Medical times Branch daily. levothyroxi 2019-0 Yes 75ug Take 1 Univ ers ne 75 mcg 5-03 tablet by ity o f tablet 00:00: mouth [place] 00 every Medical morning. Branch levothyroxi 2019-0 Yes 75ug Take 1 Univ ers ne 75 mcg 5-03 tablet by ity o f tablet 00:00: mouth [place] 00 every Medical morning. Branch Tranexamic 2020- No [id number] 1300mg Take 2 Univers Acid 650 mg 5-03 06-17 tablets by i ty of tablet 00:00: 00:00 mouth 3 [place] 00 :00 (three) Medical times [place] daily. phentermine Yes TK 1 T PO U nivers 37.5 mg 4-13 QAM ity of tablet 00:00: [place] 00 Medical Branch phentermine 2018-0 Yes TK 1 T PO U nivers 37.5 mg 4-13 QAM ity of tablet 00:00: [place] 00 Medical Branch phentermine 2018-0 Yes TK 1 T PO U nivers 37.5 mg 4-13 QAM ity of tablet 00:00: [place] 00 Medical [place] phentermine 2019-0 Yes TK 1 T PO U nivers 37.5 mg 4-13 QAM ity of tablet 00:00: [place] 00 [facility] phentermine 2018-0 Yes TK 1 T PO U nivers 37.5 mg 4-13 QAM ity of tablet 00:00: [place] 00 Medical Branch phentermine 2019-0 Yes TK 1 T PO U nivers 37.5 mg 4-13 QAM ity of tablet 00:00: [place] 00 Medical Branch phentermine 2018-0 Yes TK 1 T PO U nivers 37.5 mg 4-13 QAM ity of tablet 00:00: [place] 00 Medical Branch phentermine 2018-0 Yes TK 1 T PO U nivers 37.5 mg 4-13 QAM ity of tablet 00:00: [place] [address] Medical [place] phentermine 2018-0 Yes TK 1 T PO U nivers 37.5 mg 4-13 QAM ity of tablet 00:00: [place] 00 Medical [place] phentermine 2018-0 Yes TK 1 T PO U nivers 37.5 mg 4-13 QAM ity of tablet 00:00: [place] 00 Medical Branch phentermine Yes TK 1 T PO U nivers 37.5 mg 4-13 QAM ity of tablet 00:00: [place] 00 Medical Branch phentermine Yes TK 1 T PO U nivers 37.5 mg 4-13 QAM ity of tablet 00:00: [place] 00 Medical Branch phentermine Yes TK 1 T PO U nivers 37.5 mg 4-13 QAM ity of tablet 00:00: [place] 00 Medical Branch phentermine 202- No TK 1 T PO Univers 37.5 mg 4-13 03-16 QAM ity of tablet 00:00: 00:00 [place] 00 :00 Medical Branch phentermine 202- No TK 1 T PO Univers 37.5 mg 4-13 03-16 QAM ity of tablet 00:00: 00:00 [place] 00 :00 Medical Branch phentermine 2020- No TK 1 T PO Univers 37.5 mg 4-13 03-16 QAM ity of tablet 00:00: 00:00 [place] 00 :00 Medical Branch Vital Signs Vital Name Observation Time Observation Value Comments Source Height 2023-05-08 06:50:00 160.02 CM Weight 2023-05-08 06:50:00 169.8 KG Height 2023-05-07 10:52:00 160.02 CM Systolic blood 2021-03-14 19:18:00 123 mm[Hg] Univer sity of pressure [facility] Diastolic blood 2021-03-14 19:18:00 85 mm[Hg] Unive rsity of pressure [facility] Heart rate 2021-03-14 19:18:00 64 /min [facility] Body temperature 2021-03-14 19:18:00 36.61 Aleja [facility] 2021-03-14 19:18:00 18 /min [facility] Body height 2021-03-14 19:18:00 160 cm [facility] Body weight 2021-03-14 19:18:00 75.569 kg [facility] BMI 2021-03-14 19:18:00 29.51 kg/m2 [facility] Systolic blood 2021-02-14 15:55:00 127 mm[Hg] [facility] Diastolic blood 2021-02-14 15:55:00 89 mm[Hg] [facility] Heart rate 2021-02-14 15:55:00 70 /min [facility] Body temperature 2021-02-14 15:55:00 36.89 Aleja [facility] Respiratory rate 2021-02-14 15:55:00 18 /min [facility] Body height 2021-02-14 15:55:00 161.5 cm [facility] Body weight 2021-02-14 15:55:00 75.297 kg [facility] BMI 2021-02-14 15:55:00 28.85 kg/m2 [facility] Systolic blood 2020-07-11 15:31:00 116 mm[Hg] [facility] Diastolic blood 2020-07-11 15:31:00 79 mm[Hg] [facility] Heart rate 2020-07-11 15:31:00 68 /min [facility] Body temperature 2020-07-11 15:31:00 36.89 Laeja [facility] Respiratory rate 2020-07-11 15:31:00 18 /min [facility] Body height 2020-07-11 15:31:00 160 cm [facility] Body weight 2020-07-11 15:31:00 91.627 kg [facility] BMI 2020-07-11 15:31:00 35.78 kg/m2 [facility] Systolic blood 2020-05-11 18:18:00 124 mm[Hg] [facility] Diastolic blood 2020-05-11 18:18:00 81 mm[Hg] [facility] Heart rate 2020-05-11 18:18:00 82 /min [facility] Body temperature 2020-05-11 18:12:00 37.06 Aleja [facility] [place] [facility] Respiratory rate 2020-05-11 18:12:00 18 /min [facility] Body height 2020-05-11 18:12:00 160 cm [facility] Body weight 2020-05-11 18:12:00 107.956 kg [facility] BMI 2020-05-11 18:12:00 42.16 kg/m2 [facility] Systolic (mm Hg) 2023-09-16 15:16:00 Seth rial [place] Diastolic (mm Hg) 2023-09-16 15:16:00 Mem orial [place] Heart Rate 2023-09-16 15:16:00 [facility] Height 2023-09-16 15:16:00 5 [ft_i] [facility] [place] Weight 2023-09-16 15:16:00 [facility] BMI Calculated 2023-09-16 15:16:00 Memori al [place] Systolic (mm Hg) 2019-12-10 16:44:00 Seth rial [place] Diastolic (mm Hg) 2019-12-10 16:44:00 Mem orial [facility] Height 2019-12-10 16:44:00 160.02 cm [facility] [place] Weight 2019-12-10 16:44:00 [facility] [place] BMI Calculated 2019-12-10 16:44:00 Memori al [place] Procedures Procedure Date / Time Performing Clinician Source Performed Hysteroscopy with 2023-08-29 05:00:00 [facility] ermann endometrial ablation Stapedectomy (Ear 2023-05-21 05:00:00 [facility] Surgery, removal of Stapes) EXCISION RIGHT AUDITORY 2023-05-08 00:00:00 [facility] Center NOTICE OF PRIVACY 2021-02-20 23:11:38 Doctor Unassigned, [facility] PRACTICES [facility] BI US GUIDED CORE BREAST 2020-08-25 19:01:26 AdCarolina alegria [facility] BIOPSY LEFT Medical Branch BI ULTRASOUND BREAST 2020-08-04 19:59:45 Carolina Leonard [facility] LIMITED LEFT Medical Branch BI SCREENING MAMMOGRAM 2020-07-19 20:26:58 Carolina Leonard [facility] BILATERAL Medical Branch ASSIGNMENT OF BENEFITS 2020-07-19 19:51:38 Doctor Unassigned, [facility] [place] [facility] POCT TEST 2020-05-11 18:31:00 Adum, Carolina Laura [facility] POCT URINALYSIS W/O 2020-05-11 18:13:00 Adum, Carolina Laura [facility] SPECIFIC GRAVITY Medical Branch ASSIGNMENT OF BENEFITS 2020-05-11 17:58:36 Doctor Unassigned, [facility] [place] [facility] Reconstruction of facial Amber valentín Loyd bones Caesarean section [facility] Encounters Start End Encounter Admission Attending Care Care Encounter Source Date/Time Date/Time Type Type Clinicians Facility Department ID 2019-12-24 Outpatient [facility] TOMMY [id number] Me moria 11:09:07 valentín laura [facility] 2023-10-29 2023-10-29 Outpatient MHIE MHIE [id number] Memoria 15:15:00 15:15:00 02 valentín Loyd 2023-09-16 2023-09-17 Outpatient MHIE MNA [id number] Memoria 14:30:00 04:59:59 Neurology 01 valentín Loyd 2023-09-16 2023-09-16 Outpatient LORE MockMISCHER MHMISCHER [id number] 09:30:00 23:59:59 John 01 Lopez 2023-09-16 2023-09-16 Outpatient MHIE MHIE [id number] Memoria 09:30:00 09:30:00 01 valentín Loyd 2023-09-16 2023-09-16 Outpatient MHIE MHIE [id number] Memoria 09:30:00 09:30:00 01 valentín Loyd 2023-08-29 2023-08-29 Outpatient DOM Ford TOMMY [id number] [facility] 05:33:00 05:33:00 Rosa Morrissey [facility] 2023-07-16 2023-07-16 Outpatient GC_GCBZW_Ka PRIV PRIV [id number] [facility] 00:00:00 00:00:00 barrya_S [id number] Medic al 2023-07-16 2023-07-16 Outpatient GC_GCBZW_Ka PRIV PRIV [id number] [facility] 00:00:00 00:00:00 diyala_S [id number] Medic al 2023-07-16 2023-07-16 Outpatient GC_GCBZW_Ka PRIV PRIV [id number] [facility] 00:00:00 00:00:00 diyala_S [id number] Medic al 2023-06-27 2023-06-27 Outpatient GC_GCBZW_Ka PRIV PRIV [id number] [facility] 00:00:00 00:00:00 diyala_S [id number] Medic al 2023-06-27 2023-06-27 Outpatient GC_GCBZW_Ka PRIV PRIV [id number] [facility] 00:00:00 00:00:00 diyala_S [id number] Medic al 2023-06-11 2023-06-11 Outpatient GC_GCBZW_Ka PRIV PRIV [id number] [facility] 00:00:00 00:00:00 diyala_S [id number] Medic al 2023-05-08 2023-05-08 Outpatient Jose CONDE [facility] [id number] [facility] 06:25:00 10:45:00 [place] [facility] 2023-03-07 2023-03-07 Outpatient ADRIENNE Hitchcockbrowil [facility] TOMMY [id number] [facility] 10:12:00 10:12:00 Rosa Mcdonald [facility] 2021-07-11 2021-07-11 Outpatient R ADUM, [facility] [id number] Univers 09:00:00 09:00:00 CAROLINA head [facility] 2021-03-14 2021-03-14 Nurse Nurse, [facility] [id number] [facility] 14:03:42 14:24:59 Visit Carolina Leonard [id number] [place] [id number] Amita Muhammad [phone] [address] 2021-03-14 2021-03-14 Outpatient R ADUM, [facility] [id number] Univers 14:00:00 14:00:00 CAROLINA head [facility] 2021-03-14 2021-03-14 Outpatient R ADUM, [facility] [id number] Univers 13:00:00 13:00:00 CAROLINA head [facility] 2021-02-24 2021-02-24 Outpatient R AD, [facility] [id number] Univers 11:00:00 11:00:00 CAROLINA head [facility] 2021-02-20 2021-02-20 [facility] [id number] Univers 17:45:00 23:59:00 Encounter Carolina Laura Xu [id number] [id number] [phone] [facility] [address] 2021-02-20 2021-02-20 Outpatient R AD, [facility] [id number] Univers 00:00:00 00:00:00 CAROLINA head [facility] 2021-02-20 2021-02-20 Orders Doctor ALIX [id number] Univers 00:00:00 00:00:00 Only Unassigned, RYAN [id number] ity of [place] [facility] [id number] [place] [phone] [facility] [address] 2021-02-16 2021-02-16 Telephone [facility] [id number] Univers 00:00:00 00:00:00 Carolina Valentín Mcnair [id number] [id number] [phone] Co dical nal [address] [facility] 2021-02-16 2021-02-16 Case [facility] 1.2.840.114 [id number] Univers 00:00:00 00:00:00 Management Carolina Mcnair [id number] [id number] [phone] Co dical nal 134 [facility] 2021-02-16 2021-02-16 Patient [facility] 1.2.840.114 [id number] Univers 00:00:00 00:00:00 Outreach Ney PRIMARY [id number] i ty of [facility] [place] [phone] Co dical [address] 2021-02-14 2021-02-14 [facility] 1.2.840.114 [id number] Univers 10:51:50 11:49:18 Visit Carolina Mcnair [id number] it[id number] [phone] Co dical nal [address] [place] [address] 2021-02-14 2021-02-14 [facility] [id number] Univers 11:00:00 11:00:00 CAROLINA itdominic of [facility] 2020-08-25 2020-08-25 [facility] [id number] Univers 12:52:34 23:59:00 Encounter Carolina Mcnair [id number] it[place] of [id number] [phone] [facility] [address] 2020-08-25 2020-08-25 Outpatient R [facility], [facility] [id number] Univers 00:00:00 00:00:00 CAR[place]INA head of [facility] 2020-08-05 2020-08-05 [facility] 1.2.840.114 [id number] Univers 00:00:00 00:00:00 Management Carolina Mcnair [id number] [id number] [phone] Co dical nal [address] [place] [address] 2020-08-05 2020-08-05 Telephone [facility] [id number] [id number] Univers 00:00:00 00:00:00 Carolina Mcnair [id number] it[id number] [phone] Co dical nal [address] [facility] 2020-08-04 2020-08-04 [facility] 1.2.840.114 [id number] Univers 13:56:34 23:59:00 Encounter Carolina Mcnair [id number] ity of [id number] [phone] [facility] [address] 2020-08-04 2020-08-04 Outpatient R AD, [facility] [id number] Univers 00:00:00 00:00:00 CAROLINA ity of [facility] 2020-07-27 2020-07-27 Outpatient R [facility] [id number] Univers 00:00:00 00:00:00 CAROLINA ity of [facility] 2020-07-20 2020-07-20 Case [facility] 1.2.840.114 [id number] Univers 00:00:00 00:00:00 Management Carolina Cuiton [id number] ity of [id number] [phone] Co dical nal [address] [facility] 2020-07-19 2020-07-19 [facility] 1.2.840.114 [id number] Univers 14:53:16 23:59:00 Encounter Carolina Mcnair [id number] ity of [place] [phone] [facility] [address] 2020-07-19 2020-07-19 Outpatient R [facility] [id number] Univers 00:00:00 00:00:00 CAROLINA itdominic [facility] 2020-07-19 2020-07-19 Orders Doctor THOMSON 1.2.840.114 [id number] Univers 00:00:00 00:00:00 Only Unassigned, RYAN [id number] ity of [place] [facility] 4.2.7.2.686 [place] [phone] [facility] [address] 2020-07-13 2020-07-13 Patient [facility] 1.2.840.114 [id number] Univers 00:00:00 00:00:00 Secure Msg Carolina Laura [place] [id number] ity [facility] 4.2.7.2.[place] [phone] Co dic[address] 2020-07-11 2020-07-11 Office Adum, [facility] 1.2.840.114 [id number] Univers 10:03:42 11:07:10 Visit Carolina Mcnair [id number] it[place] of [id number] [phone] [address] 2020-07-11 2020-07-11 Outpatient R ADUM, [facility] [id number] Univers 10:00:00 10:00:00 CAROLINA ity [facility] 2020-06-22 2020-06-22 Outpatient R ADUM, [facility] [id number] Univers 09:45:00 09:45:00 CAROLINA ity [facility] 2020-06-14 2020-06-14 Outpatient R ADUM, [facility] [id number] Univers 10:00:00 10:00:00 CAROLINA ity [facility] 2020-06-08 2020-06-08 Outpatient R ADUM, [facility] [id number] Univers 10:00:00 10:00:00 CAR[place]INA [facility] 2020-05-18 2020-05-18 Refill Ad, [facility] 1.2.840.114 [id number] Univers 00:00:00 00:00:00 Carolina Mcnair [id number] [id number] [phone] [address] 2020-05-11 2020-05-11 Office Ad, [facility] 1.2.840.114 [id number] Univers 13:01:45 14:22:11 Visit Carolina Mcnair [id number] it[place] of [id number] [phone] [address] 2020-05-11 2020-05-11 Outpatient R ADUM, [facility] [id number] Univers 13:00:00 13:00:00 [facility] 2020-05-11 2020-05-11 Orders Doctor THOMSON 1.2.840.114 [id number] Univers 00:00:00 00:00:00 Only Unassigned, RYAN [id number] ity of [place] [facility] [id number] [place] [phone] [address] 2019-12-10 2019-12-11 Outpatient nullFlavo [id number] Memoria 16:30:00 05:59:59 r Physicians 00 l Bariatric [facility] 2019-12-10 2019-12-11 Outpatient nullFlavo [id number] Memoria 16:30:00 05:59:59 r Physicians 00 l Bariatric Donnell n Surgery 2019-12-10 2019-12-10 Outpatient Master, [facility] [id number] 10:30:00 23:59:59 Tanyaradzwa 00 Kristin 2019-12-10 2019-12-10 Outpatient IE IE [id number] Memoria 10:30:00 10:30:00 00 l [facility] Results Test Description Test Time Test Comments Results Result Comments Source SURGICAL 2023-09-02 19:43:00 Test Item Value Reference Range Interpretation Comme nts SURGICAL RUN DATE: (test 09/02/23 [facility] Richy carson - LAB PAGE 1 RUN TIME: 1942 Specimen Inquiry RUN USER: INTERFACE code = PATIENT: AGUSTIN COOKANTIONETamiko MAYS LOC: [place] U #: [id number] AGE/SX: 42/F ROOM: [facility]08/29/23[facility]: Rosa Mesa MD : 79 BED: DIS: STAT US: [facility] TLOC: SPEC #: [id number]:[id number] RECD: 08/30/23528 STATUS: DB [facility] #: [id number] MCKENNA: 08/29/23- [address] [facility] [address]: Rosa Mesa MD ENTERE SP TYPE: SURGICAL OTHR DR: ORDERED: 79381/2, 31919, ANATOMIC SPEC, SPECIMEN TRACK PROCEDU RES: [id number] (09/02/23-194) 14119 (09/02/23-1325) SPECIMEN TRACK (08/30/23) TISSUES: A. UTERUS - UTERUS, CERVIX, RT OVARY B. UTERUS - LT LATERAL WALL ENDOMETRIOSIS C. UTEROSACRAL LIGAMENT - LT UTEROSACRAL WALL ENDOMETRIOSIS FINAL DIAGNOSIS A. Uterus (57 g) and one ovary, hysterectomy and righ t oophorectomy: - Cervix, mixed cervicitis, focally erosive- Endometrium, chronic endometritis with a pseudocyst formation with proteinaceousfibrinoid contents, extending to myometrial wall- Myometrium, no morphologic alteration other than at the pseudocyst formation- Serosa, focal endometriosis Ovary, r ight:- No morphologic alterations B. Soft tissue, left lateral wall lesion, excisional biopsy:- Endometr iosis C. Soft tissue, left uterosacral wall lesion, excisional biopsy:- Endometriosis Comment: Negat edwige for atypia/malignancy. Suggest clinical correlation. GROSS DESCRIPTION A. Uterus and right ovary. Rece ived is a uterus with attached right ovary. The uterusweighs 57 g and measures cornu to cornu 5.8 cm and posterior to anterior 3.5 cm and fundusto cervix measures 6.5 cm. The cervix measures 2.8 x 2.7 cm and has a cervical os of 0.5cm. The uterus is bivalved revealing a red-pink smooth the cervical canal of 1.8 cm inlength. The endometrial cavity measures 2.2 x 1 cm. The uterine wall ranges 1.2- 3 cm inmaxi mum thickness. The cut surface reveals a trabeculated wall. The anterior wall has athickness of 0.8 cm. No nodules are identified. The anterior wall has a cauterizationalong the lower uterine segment. The supervisor residential d right ovary measures 3.2 x 2.7 x 1.8 cm. Cut sections reveal a hemorrhagic cyst measuring 0.5 x 0 x 4 a nd corpus albicans measures 0 CONTINUED ON NEXT PAGE RUN DATE: 09/02/23 [facility] - LAB PAGE 2 RUN TIME: 1942 Specimen Inquiry RUN USER: INTERFACE SPEC #: [id number]:[facility]:[id number] PATIENT: ANTIONE COOK #[id number] (Continued) GROSS DESCRIPTION (Continued ) 6 cm. A1 posterior cervixA2 anterior cervix A3-A5 posterior endomyometrium inked and including trabecul ated surfaceA6 uterine wall A7 posterior reflectionA8-A9 sections of ovary B. left lateral wall endometrio sis. It consists of a segment of adipose tissue measuring 1x 0.7 x 0.4 cm. It is sections submitted entire ly as B1. C. left uterosacral wall endometriosis. It consists of a segment of fibrous partiallycauterized tissue segment measuring 2.2 x 1.6 x 0 . 5 cm. It is sectioned and submittedentirely as C1. [place] hnical tissue processing and slide preparation performed at [id number] , [place], [place] [address] Unless gross only, the diagnosis is based upon microscopic examination.Immunohistochemi stry: This test was developed and its performance characteristicsdetermined by this laboratory. It has n ot been approved nor does it need approval by the USFDA. Appropriate positive and negative controls are re viewed and judged to be acceptable.This laboratory is certified under the Clinical Laboratory Improvem ent Amendments (CLIA-88)as qualified to perform high complexity clinical laboratory testing. MICROSCO PIC DESCRIPTION Microscopic examination is performed on all specimens and the findings areincorporated int o the final diagnosis. Please see diagnosis for findings. CLINICAL INFORMATION Recurrent menorr hagia, endometriosis, deep dyspareunia, iron deficiency anemia.This patient had an endometrial ablation with NovaSure in 03/2023 and leftsalpingo- oophorectomy, right salpingectomy, lysis of adhesions from the sigmoid that wasadhered to the left ovary and tube, endometriosis excision and fulguration with bilater alhydrosalpinges (See previous pathology report #23:[facility]:[id number]). Two prior C-sections and asleeve gastrectomy. Signed SIGNATURE ON FILE Hilton Saunders 09/02/231942 END OF REPORT BASIC METABOLIC [id number] 10:25:00 Test Item Value Reference Range Interpretation Comments SODIUM (test code = 143 mmol/L 134-147 N NA) POTASSIUM (test 3.7 mmol/L 3.4-5.0 N code = K) CHLORIDE (test code 112 mmol/L 100-108 H = CL) CARBON DIOXIDE 30 mmol/L 21-32 N (test code = CO2) ANION GAP (test 1.0 GAP calc 4.0-15.0 L code = GAP) GLUCOSE (test code 93 MG/DL 70-110 N = GLU) BLOOD UREA NITROGEN 11 MG/DL 7-18 N (test code = BUN) GLOMERULAR 58 estGFR >60 L The Glomerular FILTRATION RATE Filtration R ate is a (test code = GFR) calculated parameterbased on serum Creatinin e, patient age and sex. GFR valuesless than 60 mL/min/1.73 squ are meters are preet cative ofChronic Kidne y Disease. Values less than 15 mL/min/1.73squa re meters indicate Kidney failure. The calculation for GFR is based on the CK D-EPI (2020) calculat ion. This formulais race indifferent and is the recommended for dylan for GFRby the N [facility] Kidney Foundati on for Adults.The GFR will not calculate i f the sex is unknown or if thepatient's ag e is <18 years. CREATININE (test 1.2 MG/DL 0.6-1.0 H code = CREAT) CALCIUM (test code 9.0 MG/DL 8.5-10.1 N = CA) PROTHROMBIN [id number] 10:20:00 Test Item Value Reference Range Interpretation Comments PT PATIENT (test 10.8 SECONDS 9.3-12.9 N code = PTP) INTERNATIONAL NORMAL 0.97 INR Unit 0.8-1.2 N TARGE T INR BY RATIO (test code = INDICATIO N Indication INR) INR1. Prophylax is of venous thrombos is 2.0 - 3.0 (orthoped ic surgery), Proph ylaxis of venous thro mbosis (other than hig h-risk surgery), Treat ment of Deep Vein Thrombosis/Pulm onary Embolism, Preve ntion of systemic emb olism - Tissue heart va lves, Acute Myocardia l Infarction (to prevent systemic emboli sm), Valvular heart disease, Acute Myocardial Infa rction (to prevent sys temic embolism), Valv ular heart disease, Atrial Fibrillation, Bileaflet mecha nical valve in aortic position.2. Mec hanical prosthetic valv es (high risk), 2. 5 - 3.5 Presence of Lup us Anticoagulant o r Antiphospholipi d Antibodies, Pre vention of systemic emb olism - Acute Myocardia l Infarction (to prevent recurrent infar ct). Comment: PRE PROCEDURETHROMBOPLASTIN TIME [id number] 10:20:00 Test Item Value Reference Range Interpretation Comments THROMBOPLASTIN TIME PARTIAL 28.1 SECONDS 26-35 N (test code = PTT) Comment: PRE PROCEDUREURINALYSIS [id number] 09:54:00 Test Item Value Reference Range Interpretation Comments UA GLUCOSE DIPSTICK (test NEGATIVE mg/dL NEG code = DGLUU) UA BILIRUBIN DIPSTICK (test NEGATIVE mg/dL NEG code = BILU) UA KETONE DIPSTICK (test NEGATIVE mg/dL NEG code = KETU) UA SPECIFIC GRAVITY (test 1.025 SG 1.005-1.030 code = SGU) UA BLOOD DIPSTICK (test NEGATIVE mg/DL NEG code = LJ) UA PH DIPSTICK (test code = 6.0 pH UNITS 5.0-7.0 CHARMAINE) UA PROTEIN DIPSTICK (test NEGATIVE mg/dL NEG code = PROU) UA UROBILINIOGEN DIPSTICK 0.2 mg/dL <2.0 (test code = URO) UA NITRITE DIPSTICK (test NEGATIVE SCREEN NEG code = GARIMA) UA LEUKOCYTE ESTERASE NEGATIVE Leuk/mcL NEGATIVE DIPSTICK (test code = LEUU) Urine Specimen Type: Clean CatchUR HCG [id number] 09:54:00 Test Item Value Reference Range Interpretation Comments UR HCG QUAL (test code = HCGQLU) NEGATIVE NEGATIVE Urine Specimen Type: Clean CatchCBC W/AUTO [id number] 09:52:00 Test Item Value Reference Range Interpretation Comments WHITE BLOOD CELL (test code = 4.3 K/mm3 3.5-11.0 N WBC) RED BLOOD CELL (test code = 4.29 M/mm3 4.70-6.10 L RBC) HEMOGLOBIN (test code = HGB) 11.7 G/DL 10.4-14.9 N HEMATOCRIT (test code = HCT) 36.2 % 31.5-44.1 N MEAN CELL VOLUME (test code = 84.4 Fl 84.5-98.6 L MCV) MEAN CELL HGB (test code = MCH) 27.3 pg 27.0-34.2 N MEAN CELL HGB CONCETRATION 32.3 G/DL 31.5-34.0 N (test code = MCHC) RED CELL DISTRIBUTION WIDTH 15.8 SD 11.5-14.5 H (test code = RDW) PLATELET COUNT (test code = 336 K/mm3 150-450 N PLT) MEAN PLATELET VOLUME (test code 10.70 fL 7.0-10.5 H = MPV) NEUTROPHIL % (test code = NT%) 53.4 % 40-76 N IMMATURE GRANULOCYTE % (test 0.2 % 0.0-5.0 N code = IG%) LYMPHOCYTE % (test code = LY%) 33.4 % 20.5-51.1 N MONOCYTE % (test code = MO%) 8.8 % 1.7-9.3 N EOSINOPHIL % (test code = EO%) 2.8 % 0.0-6.0 N BASOPHIL % (test code = BA%) 1.4 % 0.0-2.0 N NUCLEATED RBC % (test code = 0.0 /100WBC% 0.0-1.0 N NRBC%) NEUTROPHIL # (test code = NT#) 2.3 K/mm3 1.8-7.6 N IMMATURE GRANULOCYTE # (test 0.01 x10 3/uL 0.00-0.03 N code = IG#) LYMPHOCYTE # (test code = LY#) 1.5 K/mm3 0.6-3.2 N MONOCYTE # (test code = MO#) 0.4 K/mm3 0.3-1.1 N EOSINOPHIL # (test code = EO#) 0.1 K/mm3 0.0-0.4 N BASOPHIL # (test code = BA#) 0.1 K/mm3 0.0-0.1 N NUCLEATED RBC # (test code = 0.0 K/mm3 0.0-0.1 N NRBC#) MANUAL DIFF REQUIRED (test code NO DIFF/SCN CRITERIA = MDIFF) [id number] 18:41:00 Test Item Value Reference Range Interpretation Comments SURGICAL (test code = SR) R UN DATE: 03/11/23 [facility] - LAB PAGE 1 RUN TIME: 184 Specimen Inquiry RUN USER: INTERFACE P ATIENT: ANTIONE COOK [facility] [place] [place] U #: [id number] AGE/SX: 42/F ROOM: RE03/07/23[facility] DR: Rosa Mesa MD : 79 BED: DIS: STATUS: [facility] TLOC: SPEC #: [id number] RECD: 03/07/23 STATUS: DB [place] #: [id number] MCKENNA: 03/07/[address] [facility] [address]: Rosa Mesa MD ENTERED: 03/07/23 SP TYPE: SURGICAL [facility] DR: ORDERED: 57762, 13018/2, ANATOMIC SPEC, SPECIMEN TRACK PROCEDURES: [id number] (03/07/23) [id number] (03/11/23-1840) SPECIMEN TRACK (03/07/23) TISSUES: A. FALLOPIAN TUBE NOS - RIGHT FALLOPIAN TUBE B. LIGAMENT - RIGHT ROUND LIGAMENT C. FALLOPIAN TUBE NOS - LEFT FALOPIAN TUBE AND OVARY FINAL DIAGNOSIS A. Fallopian tube, right, salpingectomy:- Focal salpingitis isthmica nodosa- Wall, lumen and fimbriated end identified B. Soft tissue, right ligament, lesion, excisional biopsy- Fibrovascular adhesions- Negative for endometriosis- Round ligament muscle tissue identified C. Fallopian tube and ovary, left, salpingo-oophorectomy:Ovary:- Cystic endometriosisFallopian tube- Endometriosis and focal salpingitis isthmica nodosa- Wall, lumen and fimbriated end identified- Fibrovascular adhesions Comment: Negative for malignancy. Suggest clinical correlation. GROSS DESCRIPTION A. Right fallopian tube. Received is a fallopian tube segment with fimbriated endmeasuring 2.6 cm in length and has a diameter of 1.1 cm. Cut section of fallopian tubewith entire bisected fimbriated end submitted as A1. B. Right round ligament. Received is a segment of fibrofatty tissue measuring 1.6 x 1 x0.6 cm. It is sectioned and submitted entirely as B1. C. Left ovary and fallopian tube. Received is a ovary with adhered fallopian tube thatweighs 10.2 g and measures 3.2 x 2.6 x 2 cm. The adhered fallopian tube without fimbriatedend measures 3 cm in length and has a diameter of 0.6 cm. Cut sections reveal Three cyst CONTINUED ON NEXT PAGE R UN DATE: 03/11/23 [facility] PAGE 2 RUN TIME: 1840 Specimen Inquiry RUN USER: INTERFACE S [facility] #: 23:[facility]:[id number] PATIENT: ANTIONE COOK #[id number] (Continued) GROSS DESCRIPTION (Continued) measuring 0.4 - 1 cm. No papillary features are identified. The fallopian tube segmentis adhered to the ovary by fibrous tissue. Sections of cyst and fallopian tube submitted asC1-C5. Technical tissue processing and slide preparation performed at [facility],[place] [address] , [place] [address] Unless gross only, the diagnosis is based upon microscopic examination.Immunohistochemistr y: This test was developed and its performance characteristicsdetermined by this laboratory. It has not been approved nor does it need approval by the USFDA. Appropriate positive and negative controls are reviewed and judged to be acceptable.This laboratory is certified under the Clinical Laboratory Improvement Amendments (CLIA-88)as qualified to perform high complexity clinical laboratory testing. MICROSCOPIC DESCRIPTION Microscopic examination is performed on all specimens and the findings areincorporated into the final diagnosis. Please see diagnosis for findings. -------- Signed SIGNATURE ON Hilton Lazcano 03/11/23 1841 END OF REPORT [id number] 14:15:00 Test Item Value Reference Range Interpretation Comments CREATININE (test code = CREAT) 0.9 MG/DL 0.6-1.0 N URINALYSIS [id number] 14:08:00 Test Item Value Reference Range Interpretation [...] LEUU) Urine Specimen Type: Clean CatchUR HCG [id number] 14:08:00 Test Item Value Reference Range Interpretation Comments UR HCG QUAL (test code = HCGQLU) NEGATIVE NEGATIVE Urine Specimen Type: Clean CatchCBC W/AUTO [id number] 14:02:00 Test Item Value Reference Range Interpretation [...] MDIFF) BI US GUIDED CORE BREAST BIOPSY [id number] 19:26:07HISTORY: Left breast mass. COMPARISON: Ultrasound study of 08/04/2020. TECHNIQUE: Procedural details ar e discussed with the patient regardingultrasound-guided biopsy and [...] biopsy site. Biopsy sampleswere given to the commercial hvac technician for further management. Patienttolerated the procedure [...] biopsy site. Biopsy sampleswere given to the commercial hvac technician for further management. Patienttolerated the procedure well and experienced no apparent complications.CONCLUSIONS: Core biopsy samples obtained from left breast mass withoutany apparent immediate complications.[facility] [id number] 20:13:46HISTORY: ?Abnormal mammogram. Evaluate masses in the [...] appeared to understand. ACR classification: Category II. [facility], Radiant Results Inft User - 08/04/20203:14 PM [...] she appeared to understand.ACR classification: Category II. [facility] SCREENING MAMMOGRAM [id number] 20:42:39Examination:BI SCREENING MAMMOGRAM BILATERAL History:Patient is 39 [...] BenignOverall: 0 - Incomplete: Needs Additional Imaging EvaluationUn[facility] hospital [id number] 18:31:00 Test Item Value Reference Range Interpretation Comments POCT PREG (test code = 1605) Negative On board controls acceptable with C Yes Line (test code = 3574) POCT PREG LOT # (test code = 3575) POCT PREG TEST DATE (test code = 357) [facility] [id number] 18:31:00 Test Item Value Reference Range Interpretation Comments POCT PREG (test code = 1605) Negative On board controls acceptable with C Yes Line (test code = 3574) POCT PREG LOT # (test code = 3575) POCT PREG TEST DATE (test code = 3576) [facility] URINALYSIS W/O SPECIFIC [id number] 18:14:00 Test Item Value Reference Range Interpretation [...] code = 3257) 1+ Negative - Negative [facility] URINALYSIS W/O SPECIFIC [id number] 18:14:00 Test Item Value Reference Range Interpretation [...] code = 3257) 1+ Negative - Negative [facility]
[2023-09-23] MEDS ORDERED: METHYLPREDNISOLONE 125 MG INJ ONE (09:52)
[2023-09-23] MEDS ORDERED: METOCLOPRAMIDE 10 MG/2mL INJ ONE (09:52)
[2023-09-23] MEDS ORDERED: DIPHENHYDRAMINE 50 MG/ML VIAL ONE (09:52)
[2023-09-23] MEDS ORDERED: NA CHLORIDE 0.9% 1,000 ML ONE (09:53)
[2023-09-23] MEDS ORDERED: KETOROLAC 30 MG/ML INJ ONE (09:53)
--- NOTE | 2023-09-23 10:42 | ER ---
Nurse's Notes [facility] Name: Roseline Ram Age: 42 yrs Sex: Female : 1980 Arrival Date: 09/23/2023 Time: 09:20 Bed 14 Private MD: Diagnosis: Migraine without aura, not intractable Presentation: 09/23 09:34 Chief complaint: Patient states: migraines X 2months, was seen by neurologist last iw Saturday, migraine has been nonstop all weekend, her medication is not working. Coronavirus screen: At this time, the client does not indicate any symptoms associated with coronavirus-19. Ebola Screen: Patient negative for fever greater than or equal to 101.5 degrees Fahrenheit, and additional compatible Ebola Virus Disease symptoms Patient denies exposure to infectious person. Patient denies travel to an Ebola-affected area in the 21 days before illness onset. No symptoms or risks identified at this time. Initial Sepsis Screen: Does the patient meet any 2 criteria? No. Patient's initial sepsis screen is negative. Does the patient have a suspected source of infection? No. Patient's initial sepsis screen is negative. Risk Assessment: Do you want to hurt yourself or someone else? Patient reports no desire to harm self or others. 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 Screenin:53 [facility] ED Fall Risk Assessment (Adult) History of falling in the last 3 months, mb9 including since admission No falls in past 3 months (0 pts) Confusion or Disorientation No (0 pts) Intoxicated or Sedated No (0 pts) Impaired Gait No (0 pts) Mobility Assist Device Used No (0 pt) Altered Elimination No (0 pt) Score/Fall Risk Level 0 - 2 = Low Risk Oriented to surroundings, Maintained a safe environment, Educated pt \T\ family on fall prevention, incl call for assistance when getting out of bed. Abuse screen: Denies threats or abuse. Nutritional screening: No deficits noted. Tuberculosis screening: No symptoms or risk factors identified. Assessment: 09:52 General: Appears uncomfortable, Behavior is cooperative, appropriate for age. Pain: mb9 Complains of pain in head Pain radiates to left eye Pain currently is 10 out of 10 on a pain scale. Quality of pain is described as sharp, shooting, throbbing, Pain began 2 weeks ago Is continuous. Neuro: [place] Agitation-Sedation Scale (RASS): 0 - Alert and Calm Level of Consciousness is awake, alert, obeys commands, Oriented to person, place, time, situation, Appropriate for age Reports headache in left frontal area. Cardiovascular: Patient's skin is warm and dry. Respiratory: Airway is patent Respiratory effort is even, unlabored, Respiratory pattern is regular, symmetrical. GI: Reports nausea. : No signs and/or symptoms were reported regarding the genitourinary system. EENT: No signs and/or symptoms were reported regarding the EENT system. Derm: Skin is pink, warm \T\ dry. Musculoskeletal: Range of motion: intact in all extremities. 11:14 Reassessment: Patient and/or family updated on plan of care and expected duration. Pain mb9 level reassessed. Patient is alert, oriented x 3, equal unlabored respirations, skin warm/dry/pink. Patient states feeling better. Patient states symptoms have improved. Vital Signs: 09:34 BP 126 / 91; Pulse 100; Resp 16; Temp 98.9; Pulse Ox 100% on R/A; Weight 68.04 kg; iw Height 5 ft. 3 in. ; Pain 5/10; 10:07 BP 119 / 81; Pulse 84; Resp 18; Pulse Ox 99% on R/A; mb9 11:14 BP 134 / 79; Pulse 74; Resp 16; Pulse Ox 100% on R/A; mb9 09:34 Body Mass Index 26.57 (68.04 kg, 160.02 cm) iw 09:34 Pain Scale: Adult iw ED Course: 09:22 Patient arrived in ED. im 09:26 Tory Ward FNP [facility]. jh7 09:26 Zan Cruz MD is Attending Physician. jh7 09:35 Triage completed. iw 09:36 Arm band placed on. iw 09:37 Mary Montana RN is Primary Nurse. mb9 09:39 Inserted saline lock: 20 gauge in right antecubital area, using aseptic technique. mb9 09:53 Placed in gown. Bed in low position. Call light in reach. Side rails up X 1. Client mb9 placed on continuous cardiac and pulse oximetry monitoring. NIBP monitoring applied. Door closed. Noise minimized. Warm blanket given. 09:54 No provider procedures requiring assistance completed. mb9 10:42 Brigido Ratliff MD is Referral Physician. jh7 11:15 IV discontinued, intact, bleeding controlled, No redness/swelling at site. Pressure mb9 dressing applied. Administered Medications: 09:40 Drug: NS 0.9% IV 1000 ml IV at 1 bolus Per protocol; 1000 mL bolus Route: IV; Rate: 1 mb9 bolus; Site: right antecubital; 11:15 Follow up: Response: No adverse reaction; IV Status: Completed infusion mb9 09:40 Drug: MethylPrednisoLONE IVP 125 mg IVP once Route: IVP; Site: right antecubital; mb9 11:15 Follow up: Response: No adverse reaction mb9 09:42 Drug: metoCLOPramide IVP 10 mg IVP once; over 1 to 2 minutes Route: IVP; Site: right mb9 antecubital; 11:15 Follow up: Response: No adverse reaction mb9 09:46 Drug: diphenhydrAMINE IVP 12.5 mg IVP once Route: IVP; Site: right antecubital; mb9 11:15 Follow up: Response: No adverse reaction mb9 09:48 Drug: Ketorolac IVP 30 mg IVP once Route: IVP; Site: right antecubital; mb9 11:15 Follow up: Response: No adverse reaction mb9 Medication: 09:54 VIS not applicable for this client. mb9 Outcome: 10:42 Discharge ordered by . jh7 11:54 Discharged to home ambulatory, mb9 11:54 Condition: stable 11:54 Discharge instructions given to patient, Instructed on discharge instructions, follow up and referral plans. Demonstrated understanding of instructions, follow-up care, medications, Prescriptions given X 1, 11:54 Patient left the ED. mb9 Signatures: Mallika Burks, RN RN iw Tory Ward, PAYABLE MANAGER PAYABLE MANAGER jh7 Mary Montana RN RN mb9 Fabienne Woodard
--- NOTE | 2023-09-23 10:42 | EDPHYS ---
Physician Documentation [facility] Name: Roseline Ram Age: 42 yrs Sex: Female : 1980 Arrival Date: 09/23/2023 Time: 09:20 Bed 14 Private MD: ED Physician Zan Cruz HPI: 09/23 09:34 This 42 yrs old Female presents to ER via Ambulatory with complaints of jh7 Migraine. 09:34 Onset: The symptoms/episode began/occurred 2 month(s) ago, and became worse 3 day(s) jh7 ago. Associated signs and symptoms: Pertinent positives: headache, vomiting, Pertinent negatives: abdominal pain, chest pain, congestion, shortness of breath, sore throat, wheezing. 42-year-old female presents to the ER complaining of a migraine for the past 2 months. Reports that she saw her neurologist recently and was put on Topamax. She states that she stopped the Topamax due to it causing tingling in her lips. She reports using Excedrin, Tylenol, and ibuprofen with no relief. Reports that this pain is typical with her migraines and that she is also experiencing nausea/vomiting, blurred vision, and pain around her left eye. No other symptoms at this time.. 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 ROS: 09:34 Constitutional: Negative for fever, chills, and weight loss, ENT: Negative for injury, jh7 pain, and discharge, Neck: Negative for injury, pain, and swelling, Cardiovascular: Negative for chest pain, palpitations, and edema, Respiratory: Negative for shortness of breath, cough, wheezing, and pleuritic chest pain, Back: Negative for injury and pain, MS/Extremity: Negative for injury and deformity, Skin: Negative for injury, rash, and discoloration, 09:34 Eyes: Positive for blurry vision, Negative for vision loss, 09:34 Abdomen/GI: Positive for nausea and vomiting, Negative for abdominal pain, diarrhea, constipation, 09:34 Neuro: Positive for headache, Negative for altered mental status, dizziness, gait disturbance, loss of consciousness, seizure activity, speech changes, syncope, 09:34 All other systems are negative, Exam: :34 Constitutional: This is a well developed, well nourished patient who is awake, alert, jh7 and in no acute distress. Head/Face: Normocephalic, atraumatic. Eyes: Pupils equal round and reactive to light, extra-ocular motions intact. Lids and lashes normal. Conjunctiva and sclera are non-icteric and not injected. Cornea within normal limits. Periorbital areas with no swelling, redness, or edema. ENT: Nares patent. No nasal discharge, no septal abnormalities noted. Tympanic membranes are normal and external auditory canals are clear. Oropharynx with no redness, swelling, or masses, exudates, or evidence of obstruction, uvula midline. Mucous membranes moist. Neck: Trachea midline, no thyromegaly or masses palpated, and no cervical lymphadenopathy. Supple, full range of motion without nuchal rigidity, or vertebral point tenderness. No Meningismus. Cardiovascular: Regular rate and rhythm with a normal S1 and S2. No gallops, murmurs, or rubs. Normal PMI, no JVD. No pulse deficits. Respiratory: Lungs have equal breath sounds bilaterally, clear to auscultation and percussion. No rales, rhonchi or wheezes noted. No increased work of breathing, no retractions or nasal flaring. Abdomen/GI: Soft, non-tender, with normal bowel sounds. No distension or tympany. No guarding or rebound. No evidence of tenderness throughout. Skin: Warm, dry with normal turgor. Normal color with no rashes, no lesions, and no evidence of cellulitis. MS/ Extremity: Pulses equal, no cyanosis. Neurovascular intact. Full, normal range of motion. Neuro: Awake and alert, GCS 15, oriented to person, place, time, and situation. Cranial nerves II-XII grossly intact. Motor strength 5/5 in all extremities. Sensory grossly intact. Cerebellar exam normal. Normal gait. Vital Signs: :34 BP 126 / 91; Pulse 100; Resp 16; Temp 98.9; Pulse Ox 100% on R/A; Weight 68.04 kg; iw Height 5 ft. 3 in. ; Pain 5/10; 10:07 BP 119 / 81; Pulse 84; Resp 18; Pulse Ox 99% on R/A; mb9 11:14 BP 134 / 79; Pulse 74; Resp 16; Pulse Ox 100% on R/A; mb9 09:34 Body Mass Index 26.57 (68.04 kg, 160.02 cm) iw 09:34 Pain Scale: Adult iw MDM: 09:26 Patient medically screened. 7 10:30 Differential diagnosis: Migraine headache, tension headache, acute sinusitis. Data [facility] reviewed: vital signs, nurses notes. I considered the following discharge prescriptions or medication management in the emergency department Medications were administered in the Emergency Department. See MAR. Counseling: I had a detailed discussion with the patient and/or guardian regarding the historical points, exam findings, and any diagnostic results supporting the discharge/admit diagnosis, the need for outpatient follow up, a neurologist, to return to the emergency department if symptoms worsen or persist or if there are any questions or concerns that arise at home. Response to treatment: the patient's symptoms have markedly improved after treatment. 09/23 09:37 Order name: IV Saline Lock; Complete Time: 09:51 mb9 Administered Medications: 09:40 Drug: NS 0.9% IV 1000 ml IV at 1 bolus Per protocol; 1000 mL bolus Route: IV; Rate: 1 mb9 bolus; Site: right antecubital; 11:15 Follow up: Response: No adverse reaction; IV Status: Completed infusion mb9 09:40 Drug: MethylPrednisoLONE IVP 125 mg IVP once Route: IVP; Site: right antecubital; mb9 11:15 Follow up: Response: No adverse reaction mb9 09:42 Drug: metoCLOPramide IVP 10 mg IVP once; over 1 to 2 minutes Route: IVP; Site: right mb9 antecubital; 11:15 Follow up: Response: No adverse reaction mb9 09:46 Drug: diphenhydrAMINE IVP 12.5 mg IVP once Route: IVP; Site: right antecubital; mb9 11:15 Follow up: Response: No adverse reaction mb9 09:48 Drug: Ketorolac IVP 30 mg IVP once Route: IVP; Site: right antecubital; mb9 11:15 Follow up: Response: No adverse reaction mb9 Disposition Summary: 09/23/23 10:42 Discharge Ordered Notes: Location: Home [facility] Problem: chronic [facility] Symptoms: have improved [facility] Condition: Stable [facility] Diagnosis - Migraine without aura, not intractable [facility] Followup: [facility] - With: Brigido Ratliff MD - When: 2 - 3 days - Reason: Recheck today's complaints Discharge Instructions: - Discharge Summary Sheet [facility] - Migraine Headache [facility] Forms: - Medication Reconciliation Form [facility] - Thank You Letter [facility] - Patient Portal Instructions [facility] - Leadership Thank You Letter [facility] Prescriptions: - Medrol (Attila) 4 mg Oral Tablets, Dose Pack - take 1 tablet ORAL route as directed - follow package instructions; 1 packet; [facility] Refills: 0, Product Selection Permitted Addendum: 09/24/2023 20:16 Co-signature as Attending Physician, Zan Cruz MD. e c2 Signatures: Mallika Burks RN SELENA iw Tory Ward, ELECTROTYPE MOLDER ELECTROTYPE MOLDER [facility] Mary Montana RN RN mb9 Zan Cruz MD MD ec2
== END 2023-09-23 11:54 | disposition home or self-care (01) ==
LOC: ER 09:20
DX: G43.009 Migraine without aura, not intractable, without status migrainosus (principal)
CPT/HCPCS: 96361; 96375; 96374; 99284; J2765; J1200; J2930; J7030

== ENCOUNTER 2025-08-31 13:16 | Emergency (ER) | payer OTHER ==
[2025-08-31 13:49] LABS: Absolute Lymphocytes (CBC) 1.5 K/uL (0.7-4.9); Hematocrit 35.4 % (36.0-45.0); Hemoglobin 12.0 g/dL (12.0-15.0); MCH 31.3 pg (27.0-35.0); MCHC 34.1 g/dL (32.0-36.0); MCV 92.0 fL (80-100); MPV 8.6 fL (7.6-11.3); Nucleated RBC Absolute Count 0.0 (0-0); Nucleated Red Blood Cells % 0.1 % (0-0); RBC Red Blood Cell Count 3.84 M/uL (3.86-4.86); White Blood Count 5.20 thou/uL (4.3-10.9)
[2025-08-31 14:09] LABS: Anion Gap 6.8 mEq/L (5.0-15.0); BUN Blood Urea Nitrogen 15.0 mg/dL (7-18); Glucose Level 86.0 mg/dL (74-106); Potassium 3.8 mEq/L (3.5-5.1)
--- NOTE | 2025-08-31 19:40 | RAD REPORT ---
EXAMINATION: MRI LUMBAR SPINE WITHOUT CONTRAST CLINICAL INDICATION: Female, 44 years old. [facility] MAIN N saddle paresthesia;Lower back pain;Numbness/tingling Bed Name: 19 TECHNIQUE: Multiplanar multisequence MR images were obtained of the lumbar spine without IV gadoliniu m contrast. Unless otherwise specified, incidental findings do not require dedicated imaging follow-up. COMPARISON: CT abdomen and pelvis 04/18/2023. FINDINGS: For purposes of this dictation, it is assumed that there are 5 non rib-bearing lumbar type vertebrae, and the most caudal fully segmented lumbar vertebra is labeled L5. ALIGNMENT: L5 over S1 not exceeding 3 mm BONE: Vertebral bodies are normal in height. There is a normal marrow signal pattern. CORD: No abnormal signal in the cord. The conus medullaris terminates at a normal level. The nerve ro ots of the cauda equina appear normal. SOFT TISSUE: The included paraspinal soft tissues and retroperitoneal structures are grossly normal. No abnormal masses or enhancement. EVALUATION OF THE INDIVIDUAL LEVELS: L1-2: Unremarkable. L2-3: Unremarkable. L3-4: Unremarkable. L4-5: Disc desiccation changes. Posterior central disc protrusion with annular hyperintensity zone. N o significant central canal stenosis. Minimal right neural foraminal narrowing secondary to facet arthropathy. L5-S1: Moderate disc height loss with endplate remodeling. Mild facet arthropathy. Bilateral mild-to- moderate neural foraminal narrowing due to right more than left facet spurring. Central canal is patent. 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 Minimal right neural foraminal narrowing at L4-5 as well.
--- NOTE | 2025-08-31 19:43 | EDPHYS ---
Physician Documentation [facility] Name: Roseline Ram Age: 44 yrs Sex: Female : 1980 Arrival Date: 08/31/2025 Time: 13:16 Bed 19 Private MD: ED Physician Ulises Tian HPI: 08/31 15:22 This 44 yrs old Female presents to ER via Ambulatory with complaints of Low sb4 Back Pain, Groin Pain - numbness, Leg Pain - Numbness. 15:22 Patient reports right sided low back pain and a numbness tingling sensation on her sb4 right lateral thigh that extends into her inner thigh and her lateral groin region. Denies any difficulty urinating or having a bowel movement. Went to primary care today and was sent here to rule out cauda equina syndrome. Denies any injury to the back. Denies any history with back pain or injuries. Thought that this might be a flareup of her shingles because she has had it in this region before, but she does not have any rash. 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 - Infectious Disease History:: Denies. - Social history:: Smoking status: Patient denies any tobacco usage or history of. ROS: 15:22 Constitutional: Negative for fever, chills, and weight loss, sb4 15:22 Back: Positive for pain at rest, of the right low back, 15:22 Neuro: Positive for numbness, of the right femoral area and right quadriceps, 15:22 All other systems are negative, Exam: 15:22 Constitutional: This is a well developed, well nourished patient who is awake, alert, sb4 and in no acute distress. Head/Face: Normocephalic, atraumatic. Eyes: Extra-ocular motions intact. Periorbital areas with no swelling, redness, or edema. ENT: Mucous membranes moist. Cardiovascular: Regular rate and rhythm with a normal S1 and S2. Respiratory: No increased work of breathing, no retractions or nasal flaring. Abdomen/GI: Soft, non-tender, no distension. Back: No spinal tenderness. No costovertebral tenderness. Full range of motion. Vital Signs: 13:22 BP 128 / 84; Pulse 79; Resp 16; Temp 97.2; Pulse Ox 100% on R/A; Weight 58.97 kg; iw Height 5 ft. 3 in. ; Pain 5/10; 14:00 BP 117 / 78; Pulse 75; Resp 19; Pulse Ox 97% ; me1 15:00 BP 117 / 69; Pulse 77; Resp 16; Pulse Ox 100% ; me1 16:00 BP 113 / 71; Pulse 87; Resp 15; Pulse Ox 97% ; me1 17:00 BP 117 / 67; Pulse 88; Resp 15; Pulse Ox 100% ; me1 17:30 BP 116 / 67; Pulse 77; Resp 15; Pulse Ox 100% ; me1 13:22 Body Mass Index 23.03 (58.97 kg, 160.02 cm) iw 13:22 Pain Scale: Adult iw MDM: 13:21 Medical Screening Exam initiated sb4 16:34 Awaiting: MRI results, patient still has not gone to MRI.. sb4 18:22 Differential diagnosis: arthritis, strain, fracture, sciatica, contusion, Herniated sb4 disc. 19:47 Data reviewed: vital signs, nurses notes, lab test result(s), radiologic studies, and sb4 as a result, I will discharge patient. Counseling: I had a detailed discussion with the patient and/or guardian regarding the historical points, exam findings, and any diagnostic results supporting the discharge/admit diagnosis, radiology results, the need for outpatient follow up, for definitive care, to return to the emergency department if symptoms worsen or persist or if there are any questions or concerns that arise at home. 19:47 Counseling: I had a detailed discussion with the patient and/or guardian regarding lab sb4 results. 08/31 13:33 Order name: CBC with Diff; Complete Time: 13:52 sb4 08/31 13:33 Order name: BMP; Complete Time: 14:09 sb4 08/31 13:33 Order name: MRI Lumbar Spine wo Con; Complete Time: 19:41 sb4 08/31 13:33 Order name: IV Start; Complete Time: 13:43 sb4 Administered Medications: 20:08 Drug: Decadron - Dexamethasone IVP 10 mg IVP once Route: IVP; Site: right antecubital; me1 20:17 Follow up: Response: No adverse reaction me1 20:08 Drug: Ketorolac IVP 30 mg IVP once Route: IVP; Site: right antecubital; me1 20:17 Follow up: Response: No adverse reaction; Pain is decreased me1 Disposition: 16:51 I was immediately available on-site in the Emergency Department for consultation in the ms3 care of the patient. Disposition Summary: 08/31/25 19:43 Discharge Ordered Notes: Location: Home sb4 Problem: an ongoing problem sb4 Symptoms: have improved sb4 Condition: Stable sb4 Diagnosis - Low back pain sb4 - Paresthesia of skin sb4 Followup: sb4 - With: Emergency Department - When: As needed - Reason: Trouble breathing, Worsening of condition Discharge Instructions: - Discharge Summary Sheet sb4 - Acute Back Pain, Adult sb4 - Musculoskeletal Pain sb4 - Paresthesia sb4 Forms: - Patient Portal Instructions sb4 - Leadership Thank You Letter sb4 Prescriptions: - Valtrex 1 gram Oral tablet - take 1 tablet ORAL route every 8 hours for 7 days; 21 tablet; Refills: 0, sb4 Product Selection Permitted - Prednisone 20 mg Oral Tablet - take 1 tablet ORAL route once daily for 5 days; 5 tablet; Refills: 0, Product sb4 Selection Permitted - Diclofenac Sodium 75 mg Oral Tablet Sustained Release - take 1 tablet ORAL route 2 times per day; 30 tablet; Refills: 0, Product sb4 Selection Permitted - orphenadrine citrate 100 mg Oral Tablet Sustained Release - take 1 tablet ORAL route 2 times per day As needed; 20 tablet; Refills: 0, sb4 Product Selection Permitted Signatures: Dispatcher [employer] EDMallika Giles, SELENA WALTERS iw Ulises Tian DO DO ms3 Juana Berumen PA-C PAPauline sb4 Saba See RN RN me1 Corrections: (The following items were deleted from the chart) 13:33 13:33 CBC+H.LAB.BRZ ordered. EDMS EDMS 13:33 13:33 BASIC METABOLIC PANEL+C.LAB.BRZ ordered. EDMS EDMS
--- NOTE | 2025-08-31 19:43 | ER ---
Nurse's Notes [facility] Name: Roseline Ram Age: 44 yrs Sex: Female : 1980 Arrival Date: 08/31/2025 Time: 13:16 Bed 19 Private MD: Diagnosis: Low back pain;Paresthesia of skin Presentation: 08/31 13:22 Chief complaint: Patient states: has been having pain in right upper thigh and into iw groin X 2 weeks , the pain radiates into her right low back , , started having numbness to upper thigh and genital area, was told to come to ER. Coronavirus screen: At this time, the client does not indicate any symptoms associated with coronavirus-19. Ebola Screen: No symptoms or risks identified at this time. Initial Sepsis Screen: Does the patient meet any 2 criteria? No. Patient's initial sepsis screen is negative. Does the patient have a suspected source of infection? No. Patient's initial sepsis screen is negative. Risk Assessment: Do you want to hurt yourself or someone else?. Onset of symptoms was August 16, 2025. 13:22 Method Of Arrival: Ambulatory iw 13:22 Acuity: RAVEN 3 iw MANAGER OF PRODUCTION: 20:18 LMP N/A - control method, Not me1 Historical: - Allergies: 13:25 Cipro; iw 13:25 possibly topamax; iw 13:25 Soma; iw 13:25 tramadol; iw 13:25 Ultram; iw - PMHx: 13:25 Migraine; Hypothyroidism; iw - PSHx: 13:25 gastric sleeve; Left ovary removal; section; stapendectomy; Tonsillectomy; iw uterine ablation; - Immunization history:: Adult Immunizations up to date. - Infectious Disease History:: Denies. - Social history:: Smoking status: Patient denies any tobacco usage or history of. Screenin:30 [facility] ED Fall Risk Assessment (Adult) History of falling in the last 3 months, me1 including since admission No falls in past 3 months (0 pts) Confusion or Disorientation No (0 pts) Intoxicated or Sedated No (0 pts) Impaired Gait Yes (1 pt) Mobility Assist Device Used Yes (1 pt) Altered Elimination No (0 pt) Score/Fall Risk Level 0 - 2 = Low Risk Maintained a safe environment, Provided non-skid footwear, Hourly rounding (assess needs \T\ fall precautionary measures) done. Abuse screen: Denies threats or abuse. Nutritional screening: No deficits noted. Tuberculosis screening: No symptoms or risk factors identified. Assessment: 13:30 General: Appears uncomfortable, well groomed, well developed, well nourished, Behavior me1 is calm, cooperative, appropriate for age, Reports has been having pain in right upper thigh and into groin X 2 weeks , the pain radiates into her right low back , , started having numbness to upper thigh and genital area, was told to come to ER. Pain: Complains of pain in right femoral area and right quadriceps Pain radiates to right low back Pain currently is 5 out of 10 on a pain scale. Quality of pain is described as sharp, Pain began 2 weeks ago Is continuous. Neuro: Level of Consciousness is awake, alert, obeys commands, Oriented to person, place, time, situation, Appropriate for age. Cardiovascular: Patient's skin is warm and dry. Respiratory: Airway is patent Respiratory effort is even, unlabored, Respiratory pattern is regular, symmetrical. GI: No signs and/or symptoms were reported involving the gastrointestinal system. : No signs and/or symptoms were reported regarding the genitourinary system. EENT: No signs and/or symptoms were reported regarding the EENT system. Derm: Skin is intact, is healthy with good turgor, Skin is normal. Musculoskeletal: Reports numbness in groin and right quadriceps. Vital Signs: 13:22 BP 128 / 84; Pulse 79; Resp 16; Temp 97.2; Pulse Ox 100% on R/A; Weight 58.97 kg; iw Height 5 ft. 3 in. ; Pain 5/10; 14:00 BP 117 / 78; Pulse 75; Resp 19; Pulse Ox 97% ; me1 15:00 BP 117 / 69; Pulse 77; Resp 16; Pulse Ox 100% ; me1 16:00 BP 113 / 71; Pulse 87; Resp 15; Pulse Ox 97% ; me1 17:00 BP 117 / 67; Pulse 88; Resp 15; Pulse Ox 100% ; me1 17:30 BP 116 / 67; Pulse 77; Resp 15; Pulse Ox 100% ; me1 13:22 Body Mass Index 23.03 (58.97 kg, 160.02 cm) iw 13:22 Pain Scale: Adult ED Course: 13:18 Patient arrived in ED. im 13:21 Juana Berumen PA-C [facility]. sb4 13:21 Ulises Tian DO is Attending Physician. sb4 13:25 Triage completed. iw 13:26 Arm band placed on. iw 13:28 Saba See, RN is Primary Nurse. me1 13:30 Patient has correct armband on for positive identification. Bed in low position. Call me1 light in reach. Side rails up X2. Provided Education on: POC. Verbalized understanding.. Client placed on continuous cardiac and pulse oximetry monitoring. NIBP monitoring applied. Pulse ox on. NIBP on. 13:30 No provider procedures requiring assistance completed. me1 13:43 Initial lab(s) drawn, by laborer salvage, sent to lab. Inserted saline lock: 20 gauge in right ts3 antecubital area, using aseptic technique. Blood collected. Flushed with 10 mL NS. 18:48 MRI Lumbar Spine wo Con In Process Unspecified. EDMS 20:18 IV discontinued, intact, bleeding controlled, No redness/swelling at site. Pressure me1 dressing applied. Administered Medications: 20:08 Drug: Decadron - Dexamethasone IVP 10 mg IVP once Route: IVP; Site: right antecubital; me1 20:17 Follow up: Response: No adverse reaction me1 20:08 Drug: Ketorolac IVP 30 mg IVP once Route: IVP; Site: right antecubital; me1 20:17 Follow up: Response: No adverse reaction; Pain is decreased me1 Medication: 13:30 VIS not applicable for this client. me1 Outcome: 19:43 Discharge ordered by MD. sb4 20:18 Discharged to home ambulatory, me1 20:18 Condition: stable 20:18 Discharge instructions given to patient, Instructed on discharge instructions, follow up and referral plans. medication usage, Demonstrated understanding of instructions, follow-up care, medications, Prescriptions given X 4, 20:19 Patient left the ED. me1 Signatures: Dispatcher [employer] EDMS Mallika Burks RN RN iw Juana Berumen PA-C PA-C sb4 Fabienne Woodard Saba See, RN RN me1 Mel Rodrigez ts3 Corrections: (The following items were deleted from the chart) 13:22 Chief complaint: Patient states: has been having pain in right upper thigh and iw into groin X 2 weeks , the pain radiates into her right low back , , started having numbness to upper thigh and genital area, was told to come to ER iw 13: 13:22 BP 128 / 84; Pulse 79bpm; Resp 16bpm; Pulse Ox 100% RA; Temp 97.2F; Pain 5/10, iw Adult; iw 13:39 13:22 Chief complaint: Patient states: has been having pain in right upper thigh and me1 into groin X 2 weeks , the pain radiates into her right low back , , started having numbness to upper thigh and genital area, was told to come to ER iw
[2025-08-31] MEDS ORDERED: KETOROLAC 30 MG/ML INJ ONE (19:59)
[2025-08-31 20:23] VITALS: TEMP 97.2
[2025-08-31 20:28] VITALS: O2SAT 100
[2025-08-31 20:29] VITALS: BP 116/67
== END 2025-08-31 20:19 | disposition home or self-care (01) ==
LOC: ER 13:16
DX: M54.50 Low back pain, unspecified (principal); R20.2 Paresthesia of skin; E03.9 Hypothyroidism, unspecified; Z88.1 Allergy status to other antibiotic agents; Z88.5 Allergy status to narcotic agent; Z88.8 Allergy status to other drugs, medicaments and biological substances
CPT/HCPCS: 85025; 80048; 36415; 72148; 96375; 96374; 99284; J1100; J1885